=== PATIENT | male | born 1965 | race Caucasian/White ===

== ENCOUNTER 2016-10-29 06:43 | Emergency (ER) | payer MEDICARE, MEDICAID ==
[2016-10-29] MEDS ORDERED: SODIUM CHLORIDE 0.9% 1,000 ML IV ONE (07:29)
[2016-10-29] MEDS ORDERED: LORazepam 2 MG/ML SYRINGE IVP STA (07:29)
[2016-10-29] MEDS ORDERED: ONDANSETRON 4 MG/2 ML VIAL IVP STA (07:29)
[2016-10-29] MEDS ORDERED: FAMOTIDINE 20 MG/50 ML 50 ML IV ONE ×2 (07:29→07:41)
[2016-10-29] MEDS ORDERED: LORazepam 2 MG/ML SYRINGE ONE (07:41)
[2016-10-29] MEDS ORDERED: ONDANSETRON 4 MG/2 ML VIAL ONE (07:41)
== END 2016-10-29 10:02 | disposition home or self-care (01) ==
DX: K29.21 Alcoholic gastritis with bleeding (principal); Z79.82 Long term (current) use of aspirin; I10 Essential (primary) hypertension; E78.00 Pure hypercholesterolemia, unspecified; K21.9 Gastro-esophageal reflux disease without esophagitis; F17.200 Nicotine dependence, unspecified, uncomplicated
CPT/HCPCS: 36415; 80053; 83690; 85025; 85610; 86850; 86900; 86901; 96365; 96375; 99284; J2060

== ENCOUNTER 2017-01-21 00:52 | Inpatient (IN) | payer MEDICARE, MEDICAID ==
[2017-01-21] MEDS ORDERED: ONDANSETRON 4 MG/2 ML VIAL IVP STA (01:24)
[2017-01-21] MEDS ORDERED: SODIUM CHLORIDE 0.9% 1,000 ML IV STA (01:24)
[2017-01-21] MEDS ORDERED: HYDROmorphone 1 MG/ML SYRINGE IVP STA ×2 (01:24→02:48)
[2017-01-21] MEDS ORDERED: HYDROmorphone 1 MG/ML SYRINGE ONE ×2 (01:26→03:01)
[2017-01-21] MEDS ORDERED: ONDANSETRON 4 MG/2 ML VIAL ONE (01:27)
[2017-01-21] MEDS ORDERED: PROCHLORPERAZINE 10 MG/2 ML VIAL IVP PRN (03:30)
[2017-01-21] MEDS ORDERED: ONDANSETRON 4 MG/2 ML VIAL IVP PRN (03:30)
[2017-01-21] MEDS ORDERED: ZOLPIDEM 5 MG TABLET PO PRN (03:30)
[2017-01-21] MEDS ORDERED: ACETAMINOPHEN 325 MG TABLET PO PRN (03:30)
[2017-01-21] MEDS ORDERED: MAGNESIUM SULFATE 2 GRAM 50 ML IV ONE (03:35)
[2017-01-21] MEDS ORDERED: LORazepam 2 MG/ML SYRINGE IVP PRN (03:35)
[2017-01-21] MEDS: NS W/20 MEQ KCL 1,000 ML IV SCH ×2 (04:56→19:14)
[2017-01-21] MEDS: SODIUM CHLORIDE FLUSH 0.9% 10 ML SYRINGE IVP SCH ×3 (04:57→21:11)
[2017-01-21] MEDS: MORPHINE 2 MG/ML SYRINGE IVP PRN ×4 (05:11→16:01)
[2017-01-21] MEDS: oxyCODONE 5 MG TABLET PO PRN ×3 (06:40→19:12)
[2017-01-21] MEDS: PANTOPRAZOLE 40 MG VIAL IVP SCH ×2 (06:40→10:47)
[2017-01-21] MEDS: SODIUM CHLORIDE FLUSH 0.9% 10 ML SYRINGE IVP PRN ×2 (08:00→10:17)
[2017-01-21] MEDS: ASPIRIN EC 81 MG TABLET PO SCH (08:16)
[2017-01-21] MEDS: METOPROLOL SUCCINATE 50 MG TABLET PO SCH ×2 (08:16→21:10)
[2017-01-21] MEDS: ENOXAPARIN 40 MG/0.4 ML SYRINGE SUBQ SCH (08:16)
[2017-01-21] MEDS: POLYETHYLENE GLYCOL 3350 17 GM PACKET PO SCH (08:16)
[2017-01-21] MEDS: MULTIVITAMIN 10 ML, THIAMINE INJ 100 MG, FOLIC ACID INJ 1 MG in SODIUM CHLORIDE 0.9% 1,... IV SCH (08:44)
[2017-01-21] MEDS: GEMFIBROZIL 600 MG TABLET PO SCH ×2 (08:50→16:01)
[2017-01-22] MEDS: oxyCODONE 5 MG TABLET PO PRN ×6 (00:12→20:59)
[2017-01-22] MEDS: MORPHINE 2 MG/ML SYRINGE IVP PRN (02:24)
[2017-01-22] MEDS: SODIUM CHLORIDE FLUSH 0.9% 10 ML SYRINGE IVP PRN ×2 (02:24→09:35)
[2017-01-22] MEDS: SODIUM CHLORIDE FLUSH 0.9% 10 ML SYRINGE IVP SCH ×3 (06:01→20:54)
[2017-01-22] MEDS: GEMFIBROZIL 600 MG TABLET PO SCH ×2 (06:02→16:01)
[2017-01-22] MEDS ORDERED: IOPAMIDOL-300 100 ML VIAL IVP ONE (08:58)
[2017-01-22] MEDS: ASPIRIN EC 81 MG TABLET PO SCH (09:28)
[2017-01-22] MEDS: METOPROLOL SUCCINATE 50 MG TABLET PO SCH ×2 (09:28→20:54)
[2017-01-22] MEDS: ENOXAPARIN 40 MG/0.4 ML SYRINGE SUBQ SCH (09:29)
[2017-01-22] MEDS: POLYETHYLENE GLYCOL 3350 17 GM PACKET PO SCH (09:29)
[2017-01-22] MEDS: MULTIVITAMIN 10 ML, THIAMINE INJ 100 MG, FOLIC ACID INJ 1 MG in SODIUM CHLORIDE 0.9% 1,... IV SCH (09:29)
[2017-01-22] MEDS: SODIUM CHLORIDE 0.9% 1,000 ML IV SCH ×2 (16:50→20:54)
[2017-01-22] MEDS: SENNA 8.6 MG TABLET PO SCH (19:47)
[2017-01-22] MEDS: DOCUSATE SODIUM 250 MG CAPSULE PO SCH (19:48)
[2017-01-23] MEDS: oxyCODONE 5 MG TABLET PO PRN ×2 (00:09→06:08)
[2017-01-23] MEDS: SODIUM CHLORIDE 0.9% 1,000 ML IV SCH (04:18)
[2017-01-23] MEDS: SODIUM CHLORIDE FLUSH 0.9% 10 ML SYRINGE IVP SCH (06:01)
[2017-01-23] MEDS: GEMFIBROZIL 600 MG TABLET PO SCH (06:08)
[2017-01-23] MEDS: PANTOPRAZOLE 40 MG VIAL IVP SCH (06:08)
[2017-01-23] MEDS: ENOXAPARIN 40 MG/0.4 ML SYRINGE SUBQ SCH (06:48)
[2017-01-23] MEDS: MORPHINE 2 MG/ML SYRINGE IVP PRN (07:56)
[2017-01-23] MEDS ORDERED: PRENATAL VITAMIN TABLET PO SCH (08:00)
[2017-01-23] MEDS: SENNA 8.6 MG TABLET PO SCH (08:20)
[2017-01-23] MEDS: ASPIRIN EC 81 MG TABLET PO SCH (08:20)
[2017-01-23] MEDS: POLYETHYLENE GLYCOL 3350 17 GM PACKET PO SCH (08:21)
[2017-01-23] MEDS: METOPROLOL SUCCINATE 50 MG TABLET PO SCH (08:21)
[2017-01-23] MEDS: DOCUSATE SODIUM 250 MG CAPSULE PO SCH (08:21)
[2017-01-23] MEDS ORDERED: THIAMINE 100 MG TABLET PO SCH (09:00)
== END 2017-01-23 12:50 | disposition home or self-care (01) | DRG 439 ==
DX: K86.0 Alcohol-induced chronic pancreatitis (principal); E87.1 Hypo-osmolality and hyponatremia; F17.200 Nicotine dependence, unspecified, uncomplicated; E78.00 Pure hypercholesterolemia, unspecified; K21.9 Gastro-esophageal reflux disease without esophagitis; R33.9 Retention of urine, unspecified; H54.7 Unspecified visual loss; Z96.659 Presence of unspecified artificial knee joint; Z79.82 Long term (current) use of aspirin; R17 Unspecified jaundice; J90 Pleural effusion, not elsewhere classified; K85.90 Acute pancreatitis without necrosis or infection, unspecified; K70.10 Alcoholic hepatitis without ascites; R74.0 Nonspecific elevation of levels of transaminase and lactic acid dehydrogenase [LDH]; E78.1 Pure hyperglyceridemia; F10.20 Alcohol dependence, uncomplicated; T39.1X1A Poisoning by 4-Aminophenol derivatives, accidental (unintentional), initial encounter; E87.6 Hypokalemia; K76.0 Fatty (change of) liver, not elsewhere classified; I10 Essential (primary) hypertension; E78.5 Hyperlipidemia, unspecified; F17.210 Nicotine dependence, cigarettes, uncomplicated; G89.29 Other chronic pain; M25.511 Pain in right shoulder; M54.9 Dorsalgia, unspecified; Y92.9 Unspecified place or not applicable; R91.8 Other nonspecific abnormal finding of lung field; Z79.891 Long term (current) use of opiate analgesic; Z79.899 Other long term (current) drug therapy; Z86.79 Personal history of other diseases of the circulatory system; Z87.828 Personal history of other (healed) physical injury and trauma

== ENCOUNTER 2018-02-25 08:00 | Outpatient (CLI) | payer MEDICARE ==
[2018-02-25 13:35] LABS: ALT ALANINE AMINOTRANSFERASE 26 IU/L (10-60); AST ASPARTATE AMINOTRANSFERASE 54 IU/L (10-42); BUN - BLOOD UREA NITROGEN 10 mg/dL (6-20); CARBON DIOXIDE - CO2 20 mmol/L (21-32); CHLORIDE 107 mmol/L (101-111); CHOL/HDL RATIO 3.2 (<5.0); CHOLESTEROL 142 mg/dL; CREATININE 0.7 mg/dL (0.6-1.2); GFR - MDRD 118 (>89); GLUCOSE 113 mg/dL (70-100); HDL CHOLESTEROL 45 mg/dL; LDL CHOLESTEROL,CALCULATED 78 mg/dL; LDL/HDL RATIO 1.7 (<3.6); SODIUM 136 mmol/L (135-145); VLDL CHOLESTEROL 19 mg/dL
== END 2018-02-25 08:01 | disposition home or self-care (01) ==
LOC: LAB.N 08:00
PROVIDERS: ATTEND Internal Medicine
DX: I10 Essential (primary) hypertension (principal); E78.5 Hyperlipidemia, unspecified
CPT/HCPCS: 36415; 80051; 80061; 82565; 82947; 83721; 84450; 84460; 84520

== ENCOUNTER 2019-06-12 19:29 | Inpatient (IN) | payer MEDICARE, OTHER ==
[~2019-06-12 19:29] MED LIST: DEXAMETHASONE 4 MG/ML VIAL IVP ONE; LABETALOL 5 MG/1 ML 20 ML MDV IV ONE; MIDAZOLAM 2 MG/2 ML VIAL IVP ONE; PROPOFOL 200 MG/20 ML VIAL IVP ONE; ROCURONIUM 50 MG/5 ML VIAL IVP ONE; SUCCINYLCHOLINE 200 MG/10 ML VIAL IVP ONE
[2019-06-12] MEDS ORDERED: FOLIC ACID INJ 1 MG, THIAMINE INJ 100 MG, MAGNESIUM SULFATE 2 GM, MULTIVITAMIN 10 ML in... IV STA ×5 (20:24)
[2019-06-12 20:34] LABS: BASOPHILS # (AUTO) 0.1 10^3/uL (0.0-0.1); BASOPHILS % (AUTO) 1.1 %; EOSINOPHILS % (AUTO) 0.2 %; HGB - HEMOGLOBIN 11.2 g/dL (14.0-18.0); LYMPHOCYTES # (AUTO) 1.3 10^3/uL (1.5-3.5); LYMPHOCYTES % (AUTO) 23.4 %; MEAN CORPUSCULAR HEMOGLOBIN 30.7 pg (27.0-31.0); MEAN CORPUSCULAR HGB CONC 32.4 g/dL (32.0-36.0); MEAN CORPUSCULAR VOLUME 94.8 fL (80.0-94.0); MEAN PLATELET VOLUME 8.5 fL (7.4-11.4); MONOCYTES # (AUTO) 0.5 10^3/uL (0.0-1.0); MONOCYTES % (AUTO) 8.6 %; NEUTROPHILS # (AUTO) 3.7 10^3/uL (1.5-6.6); NEUTROPHILS % (AUTO) 66.2 %; PLT - PLATELET COUNT 158 10^3/uL (130-450); RED BLOOD COUNT 3.65 10^6/uL (4.70-6.10); WHITE BLOOD COUNT 5.6 x10^3/uL (4.8-10.8)
--- NOTE | 2019-06-12 20:35 | ED Physician Documentation ---
History of Present Illness - Stated complaint Stated Complaint: WEAKNESS/ ETOH Intoxication - Chief complaint Chief Complaint: General - History obtained from History obtained from: Patient, Family - History of Present Illness Timing: Today Pain level max: 0 Pain level now: 0 - Additonal information Additional information: Patient states he has been drinking alcohol for the past week or so. States feels weak today. No bleeding. No blood in the stool. No chest pain. No dyspnea. Nothing makes it better or worse. Denies any medications at home. States he drinks a sixpack of beer per day. He states that he did fall and strike his head. He is not sure when this occurred. No neck or back pain. No focal neurological deficits. Ambulated into the emergency department. Review of Systems Unable to obtain: Intoxicated Ten Systems: 10 systems reviewed and negative Constitutional: denies: Fever, Chills Ears: denies: Ear pain Nose: denies: Rhinorrhea / runny nose, Congestion Throat: denies: Sore throat Cardiac: denies: Chest pain / pressure Respiratory: denies: Cough GI: denies: Abdominal Pain, Abdominal Swelling, Nausea, Vomiting, Diarrhea, Hematemesis, Bloody / black stool : denies: Dysuria Skin: denies: Rash Musculoskeletal: denies: Neck pain, Back pain Neurologic: denies: Headache PD PAST MEDICAL HISTORY - Past Medical History Past Medical History: Yes Cardiovascular: Hypertension, High cholesterol Respiratory: None Endocrine/Autoimmune: None GI: GERD : Retention HEENT: Chronic vision loss Psych: Other Musculoskeletal: None Derm: None Other Past Medical History: Alcoholism - Past Surgical History Past Surgical History: Yes Ortho: Knee replacement, Shoulder arthroplasty - Present Medications Home Medications: Ambulatory Orders Medication Instructions Recorded Confirmed Amitriptyline [Elavil] 50 mg PO QPM 01/21/17 06/12/19 Lisinopril [Zestril] 20 mg PO DAILY 01/21/17 06/12/19 Simvastatin [Zocor] 20 mg PO DAILY 01/21/17 06/12/19 Aspirin Chewable [[place] 1 tab PO DAILY 06/12/19 06/12/19 Aspirin] - Allergies Allergies/Adverse Reactions: Allergies Allergy/AdvReac Type Severity Reaction Status Date / Time No Known Drug Allergies Allergy Verified 06/12/19 19:35 - Social History Does the pt smoke?: Yes Smoking Status: Current every day smoker Does the pt drink ETOH?: Yes ETOH Use: Beer Does the pt have substance abuse?: No - Immunizations Immunizations are current?: Yes - POLST Patient has POLST: No PD ED PE NORMAL - Vitals Vital signs reviewed: Yes - General General: Alert and oriented X 3, No acute distress, Other (Intoxicated) - HEENT HEENT: PERRL, EOMI, Ears normal, Moist mucous membranes, Pharynx benign - Neck Neck: Supple, no meningeal sign, No bony TTP - Cardiac Cardiac: RRR, Strong equal pulses, Other (Bruising to the left side of the chest. No crepitus.) - Respiratory Respiratory: No respiratory distress, Clear bilaterally - Abdomen Abdomen: Soft, Non tender, Non distended - Back Back: No spinal TTP - Derm Derm: Warm and dry, No rash - Extremities Extremities: No deformity, No tenderness to palpate, Normal ROM s pain - Neuro Neuro: Alert and oriented X 3, vehicle cost engineer 2-12 intact, No motor deficit, No sensory deficit, Other (Slurred speech) Eye Opening: Spontaneous Motor: Obeys Commands Verbal: Oriented GCS Score: 15 - Psych Psych: Normal mood, Normal affect Results - Vitals Vitals: Vital Signs - 24 hr 06/12/19 06/12/19 06/12/19 19:35 21:12 21:35 Temperature 36.5 C Heart Rate 89 81 80 Respiratory 16 16 16 Rate Blood Pressure 139/89 H 108/59 L 112/68 O2 Saturation 96 95 95 06/12/19 22:32 Temperature Heart Rate 84 Respiratory 16 Rate Blood Pressure 129/74 O2 Saturation 95 Oxygen O2 Source Room air - Labs Labs: Laboratory Tests 06/12/19 06/12/19 06/12/19 20:21 20:21 20:47 WBC 5.6 RBC 3.65 L Hgb 11.2 L Hct 34.6 L MCV 94.8 H MCH 30.7 MCHC 32.4 RDW 21.0 H Plt Count 158 MPV 8.5 Neut # (Auto) 3.7 Lymph # (Auto) 1.3 L Gray # (Auto) 0.5 Eos # (Auto) 0.0 Baso # (Auto) 0.1 Absolute Nucleated RBC 0.00 Nucleated RBC % 0.0 Manual Slide Review Indicated Platelet Estimate NORMAL (130-450,000) Platelet Morphology NORMAL APPEARANCE RBC Morph Micro Appear 1+ HYPOCHROMASIA PT INR Sodium 139 Potassium 4.0 Chloride 101 Carbon Dioxide 25 Anion Gap 13.0 BUN 13 Creatinine 0.5 L Estimated GFR (MDRD) 173 Glucose 115 H Calcium 9.1 Phosphorus 4.9 H Magnesium 2.0 Total Bilirubin 0.4 AST 71 H ALT 35 Alkaline Phosphatase 92 Total Protein 7.5 Albumin 3.7 Globulin 3.8 Albumin/Globulin Ratio 1.0 Lipase 336 H Urine Color YELLOW Urine Clarity CLEAR Urine pH 6.5 Ur Specific [place] <=1.005 Urine Protein NEGATIVE Urine Glucose (UA) NEGATIVE Urine Ketones NEGATIVE Urine Occult Blood NEGATIVE Urine Nitrite NEGATIVE Urine Bilirubin NEGATIVE Urine Urobilinogen 0.2 (NORMAL) Ur Leukocyte Esterase NEGATIVE Ur Microscopic Review NOT INDICATED Urine Culture Comments NOT INDICATED Ethyl Alcohol 382.8 06/12/19 22:00 WBC RBC Hgb Hct MCV MCH MCHC RDW Plt Count MPV Neut # (Auto) Lymph # (Auto) Gray # (Auto) Eos # (Auto) Baso # (Auto) Absolute Nucleated RBC Nucleated RBC % Manual Slide Review Platelet Estimate Platelet Morphology RBC Morph Micro Appear PT 11.3 INR 1.0 Sodium Potassium Chloride Carbon Dioxide Anion Gap BUN Creatinine Estimated GFR (MDRD) Glucose Calcium Phosphorus Magnesium Total Bilirubin AST ALT Alkaline Phosphatase Total Protein Albumin Globulin Albumin/Globulin Ratio Lipase Urine Color Urine Clarity Urine pH Ur Specific Novinger Urine Protein Urine Glucose (UA) Urine Ketones Urine Occult Blood Urine Nitrite Urine Bilirubin Urine Urobilinogen Ur Leukocyte Esterase Ur Microscopic Review Urine Culture Comments Ethyl Alcohol - Rads (name of study) Head CT Radiology: Prelim report reviewed, EMP read contemporaneously, See rad report (1. New, 9 x 7 mm hyperdense focus in the insula region medial to the left temporal lobe. In setting of trauma, this may represent a hemorrhagic focus. Consider further characterization with MRI. 2. Known left deep white matter cavernoma. ) Cervical spine CT Radiology: Prelim report reviewed, EMP read contemporaneously, See rad report (No acute abnormality) Left-sided rib with chest x-ray Radiology: Prelim report reviewed, EMP read contemporaneously, See rad report (Negative chest and rib radiography. ) PD MEDICAL DECISION MAKING - ED course Complexity details: reviewed old records, reviewed results, re-evaluated patient, considered differential, d/w patient, d/w family, d/w retirement sales consultant ED course: Dr. Kostas Toussaint (Neurosurgery at 2300) concurrs with MRI in AM. 53-year-old male presents to the emergency department several medical problems. The first is multiple falls secondary to alcoholism and alcohol intoxication. He was given a banana bag. Cervical spine CT and rib x-ray did not show any acute abnormalities. Head CT is a questionable contusion versus cavernoma. Radiology recommends an MRI. I discussed the case with neurosurgery who concurs with an MRI in the morning to further characterize the temporal lobe abnormality. The second is GI bleed, likely upper from alcoholic gastritis. Given a PPI. Hemoglobin appears stable from prior. Will likely need monitoring overnight. Also has pancreatitis, has been vomiting consistently for several days and unable to tolerate p.o. He refuses a rectal exam in the emergency department. Discussed the case with Dr. Fernandes, hospitalist who accepts This document was made in part using voice recognition software. While efforts are made to proofread this document, sound alike and grammatical errors may occur. Departure - Departure Disposition: [facility] DC/Xfer Clinical Impression: Abnormal head CT, Alcoholism /alcohol abuse Pancreatitis Qualifiers: Chronicity: acute Pancreatitis type: alcohol induced Acute pancreatitis complication: unspecified Qualified Code(s): K85.20 - Alcohol induced acute pancreatitis without necrosis or infection GI bleed Qualifiers: GI bleed type/associated pathology: unspecified gastrointestinal hemorrhage type Qualified Code(s): K92.2 - Gastrointestinal hemorrhage, unspecified Condition: Stable Discharge Date/Time: 06/12/19 23:36
[2019-06-12] MEDS ORDERED: THIAMINE 100 MG/1 ML 2 ML MDV ONE (20:38)
[2019-06-12 20:46] LABS: ALBUMIN 3.7 g/dL (3.2-5.5); BILIRUBIN,TOTAL 0.4 mg/dL (0.2-1.0); CALCIUM 9.1 mg/dL (8.5-10.3); CREATININE 0.5 mg/dL (0.6-1.2); PHOSPHORUS 4.9 mg/dL (2.5-4.6); TOTAL PROTEIN 7.5 g/dL (6.7-8.2)
[2019-06-12 20:58] LABS: BILIRUBIN,URINE NEGATIVE (NEGATIVE); GLUCOSE, URINE (UA) NEGATIVE (NEGATIVE); KETONES,URINE (UA) NEGATIVE (NEGATIVE); LEUKOCYTE ESTERASE, URINE NEGATIVE (NEGATIVE); NITRITE,URINE NEGATIVE (NEGATIVE); OCCULT BLOOD,URINE NEGATIVE (NEGATIVE); PH,URINE 6.5 PH (5.0-7.5); PROTEIN,URINE NEGATIVE (NEGATIVE); UROBILINOGEN,URINE 0.2 (NORMAL) E.U./dL (NORMAL)
[2019-06-12 21:03] LABS: CLARITY,URINE CLEAR (CLEAR)
[2019-06-12 21:18] LABS: PLATELET ESTIMATE, MANUAL NORMAL (130-450,000) (NORMAL); PLATELET MORPHOLOGY NORMAL APPEARANCE (NORMAL)
--- NOTE | 2019-06-12 21:24 | XRAY Report ---
Reason: fall, rib pain Procedure Date: 06/12/2019 Accession Number: [id number] / [id number] Procedure: XR - Ribs w/PA Chest LT CPT Code: FULL RESULT: EXAM: LEFT RIB RADIOGRAPHY EXAM DATE: 06/12/2019 09:07 PM. CLINICAL HISTORY: Fall, rib pain. COMPARISON: CHEST 2 VIEW PA/LAT 01/21/2017 1:29 AM. TECHNIQUE: 1 view of the chest and 2 views of the ribs. FINDINGS: Bones: Normal. No fracture or bone lesion. Lungs: No focal opacities. No pneumothorax. No pleural effusions. Mediastinum: Heart and mediastinal contours are unremarkable. Other: None. IMPRESSION: Negative chest and rib radiography. RADIA
--- NOTE | 2019-06-12 21:33 | CT Report ---
Reason: fall, head injury, aloc Procedure Date: 06/12/2019 Accession Number: [id number] / [id number] Procedure: CT - HEAD WO CPT Code: FULL RESULT: EXAM: CT HEAD EXAM DATE: 06/12/2019 08:47 PM. CLINICAL HISTORY: Fall, head injury, altered level of consciousness. COMPARISON: 11/24/2012 brain MRI, 03/15/[address] TECHNIQUE: Multiaxial CT images were obtained from the foramen magnum to the vertex. Reformats: Sagittal and coronal. IV contrast: None. In accordance with CT protocol optimization, one or more of the following dose reduction techniques were utilized for this exam: automated exposure control, adjustment of mA and/or KV based on patient size, or use of iterative reconstructive technique. FINDINGS: Parenchyma: There is a subtle, hyperdense 10 mm focus in the region of the posterior limb of the left internal capsule consistent with a known cavernoma. There is however a new, 9 x 7 mm hyperdense focus medial to the left temporal lobe and the insular region. No associated mass effect. Extraaxial Spaces: Normal for age. No subdural or epidural collections identified. Ventricles: Normal in size and position. Sinuses and Orbits: Imaged paranasal sinuses, orbits, and mastoids show no significant abnormality. Bones: No evidence of fracture or calvarial defect. Other: None. IMPRESSION: 1. New, 9 x 7 mm hyperdense focus in the insula region medial to the left temporal lobe. In setting of trauma, this may represent a hemorrhagic focus. Consider further characterization with MRI. 2. Known left deep white matter cavernoma. RADIA The above call report findings were discussed with Sanju Funes by Dr. Michael De La Rosa at 09:44 PM on 06/12/2019.
[2019-06-12] MEDS ORDERED: SODIUM CHLORIDE 0.9% 1,000 ML IV ONE (21:50)
[2019-06-12] MEDS ORDERED: PANTOPRAZOLE 40 MG VIAL IVP STA (21:50)
--- NOTE | 2019-06-12 22:58 | CT Report ---
Reason: fall, head injury, intoxicated Procedure Date: 06/12/2019 Accession Number: [id number] / [id number] Procedure: CT - CERVICAL SPINE WO CPT Code: FULL RESULT: EXAM: CT CERVICAL SPINE WITHOUT CONTRAST DATE: 06/12/2019 10:15 PM. HISTORY: Fall, head injury, intoxicated. COMPARISONS: XR CERVICAL SPINE 2 OR 3 VIEWS 06/18/2008 11:48 AM. TECHNIQUE: Thin-section axial images were acquired of the cervical spine without contrast. Post-processing: Coronal and sagittal reformats. Other: None. In accordance with CT protocol optimization, one or more of the following dose reduction techniques were utilized for this exam: automated exposure control, adjustment of mA and/or KV based on patient size, or use of iterative reconstructive technique. FINDINGS: Alignment: No scoliosis or spondylolisthesis. Bones: No fracture or bone lesion. Interspace Levels/Facets: C1-C2: Unremarkable. C2-C3: Unremarkable. C3-C4: Unremarkable. C4-C5: Mild right foraminal narrowing due to uncinate hypertrophy. C5-C6: Anterior spurring and mild disk narrowing. Posterior spurring and disk bulging mildly narrows the central canal. Uncovertebral and facet hypertrophy results in mild bilateral foraminal narrowing. C6-C7: Anterior spurring and [id number] disk narrowing. Posterior endplate spurring and disk bulging causes [id number] canal stenosis. Uncinate hypertrophy results in moderate to severe right and moderate left foraminal stenosis. C7-T1: There is mild disk narrowing and anterior endplate spurring. Posterior spurring and disk bulging mildly narrows the central canal. Neural foramen on the right is moderately narrowed. There is mild left foraminal stenosis. Musculature: Normal. No fatty atrophy. Other: The paravertebral and prevertebral soft tissues are unremarkable. The lung apices are clear. IMPRESSION: 1. No acute osseous abnormality. No cervical spine fracture or subluxation. 2. Mild to moderate multilevel cervical spondylosis in the lower cervical spine as detailed above most severe at C6-C7. At C6-C7, there is mild to moderate central canal stenosis, moderate to severe right and moderate left foraminal stenosis. RADIA
[2019-06-12] MEDS ORDERED: LACTATED RINGERS 1,000 ML IV ONE ×2 (23:00→23:12)
[2019-06-12] MEDS ORDERED: SODIUM CHLORIDE FLUSH 0.9% 10 ML SYRINGE IVP PRN (23:08)
[2019-06-12] MEDS ORDERED: ONDANSETRON 4 MG/2 ML VIAL IVP PRN ×2 (23:08→23:42)
[2019-06-12] MEDS ORDERED: LORazepam 2 MG/ML VIAL IVP PRN (23:10)
[2019-06-12 23:30] LABS: PT - PROTHROMBIN TIME 11.3 secs (9.9-12.6)
--- NOTE | 2019-06-12 23:41 | HISTORY & PHYSICAL EXAMINATION ---
Chief Complaint - Chief Complaint Chief Complaint: Weakness History of Present Illness - Admitted From Admitted From:: Home - History Obtained From Records Reviewed: Yes History obtained from: Patient, EMR, ER Physician - History of Present Illness HPI Comment/Other: This is a 53 year old male with a past medical history significant for alcohol abuse, hypertension, and hyperlipidemia who presents from home complaining of weakness. He states that he has been weak for a few days now so his made come to the emergency department. He reports he has felt weak when he is drinking alcohol which has been on a daily basis for the past month. He drinks a 6 pack of beer a day and his last drink is reportedly around noon. He reports never drinking daily prior to this month and that he has never gone through withdrawal in the past. Review prior records shows that he was admitted back in 2017 for pancreatitis and that he was drinking alcohol on a daily basis then. He states that he has also been falling recently with his last fall being one week ago. He reports hitting his head and his right chest. He admits to bruising but denies headache, pain, blurry vision, weakness, and numbness. He reports no abdominal pain at this time and denies nausea and vomiting. He did tell the ER Physician that he has been vomiting at home these past few days and unable to tolerate PO intake. He does admit to bloody stools at time. He cannot characterize whether it is dark or bright red blood. In the ER, he was found to be afebrile and normotensive with heart rate in the 80's. Labs revealed a hemoglobin of 11.2 and lipase of 336. Alcohol level was elevated at 382.2. He underwent a CT of the head which showed an old cavernoma but was concerning for a new 9x7mm focus in the left temporal lobe that may be hemorrhagic. The ER Physician spoke with Neurosurgery at [facility] who recommended obtaining an MRI in the morning. The CT of the neck showed dege nerative disease with multilevel cervical spondylosis and mild central canal stenosis at C6. He will be admitted for further management of his pancreatitis and this new brain lesion. History - Past Medical History Cardiovascular: reports: Hypertension, High cholesterol Respiratory: reports: None Endocrine/Autoimmune: reports: None GI: reports: GERD : reports: Retention HEENT: reports: Chronic vision loss Musculoskeletal: reports: None Derm: reports: None MRSA Hx?: No Other Past Medical History: Alcoholism - Past Surgical History Ortho: reports: Knee replacement, Shoulder arthroplasty - Family & Social History Family History Comment/Other: He reports no known family history. Living arrangement: At home Living Situation: With spouse/s.o. Social History Notes: He lives with his in [place]. 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 He drinks alcohol on a daily basis but only for the past month. States he has been drinking since the age of 16. He does smoke a few cigarettes day. Denies illicit drug use. - Substance History Use: Uses substance without health or social issues: Tobacco Abuse: Recurrent use of substance despite neg consequences: Alcohol - POLST Patient has POLST: No Meds/Allgy - Home Medications Home Medications: Ambulatory Orders Medication Instructions Recorded Confirmed Amitriptyline [Elavil] 50 mg PO QPM 01/21/17 06/12/19 Lisinopril [Zestril] 20 mg PO DAILY 01/21/17 06/12/19 Simvastatin [Zocor] 20 mg PO DAILY 01/21/17 06/12/19 Aspirin Chewable [[place] 1 tab PO DAILY 06/12/19 06/12/19 Aspirin] - Allergies Allergies/Adverse Reactions: Allergies Allergy/AdvReac Type Severity Reaction Status Date / Time No Known Drug Allergies Allergy Verified 06/12/19 19:35 Review of Systems - Constitutional Constitutional: reports: Weakness. denies: Fatigue, Fever, Chills, Poor appetite - Eyes Eyes: denies: Blurred vision - Cardiovascular Cariovascular: denies: Chest pain, Exertional dyspnea, Decr. exercise tolerance - Respiratory Respiratory: denies: Cough, SOB at rest, SOB with exertion - Gastrointestinal Gastrointestinal: reports: Rectal bleeding, Bloody stools. denies: Abdominal pain, Constipation, Diarrhea, Nausea, Vomiting - Genitourinary Genitourinary: denies: Dysuria, Frequency, Urgency - Musculoskeletal Musculoskeletal: denies: Muscle pain, Limited range of motion, Muscle weakness - Integumentary Integumentary: denies: Rash - Neurological Neurological: reports: General weakness. denies: Focal weakness, Headache, Dizziness - Hematologic/Lymphatic Hematologic/Lymphatic: reports: Bruising - All Other Systems All Other Systems: reports: Reviewed and negative Prior Level of Functionality: Independent with ADL's. Exam - Vital Signs Reviewed Vital Signs: Yes Vital Signs: Vital Signs x48h Temp Pulse Resp BP Pulse Ox 06/12/19 23:17 37.0 C 96 18 114/59 L 96 06/12/19 22:32 84 16 129/74 95 06/12/19 21:35 80 16 112/68 95 06/12/19 21:12 81 16 108/59 L 95 06/12/19 19:35 36.5 C 89 16 139/89 H 96 - Physical Exam General Appearance: positive: No acute distress, Alert Eyes Bilateral: positive: Normal inspection, PERRL, Conjunctivae nml ENT: positive: ENT inspection nml Neck: positive: Nml inspection Respiratory: positive: Chest non-tender, No respiratory distress, Breath sounds nml, Other (Area of ecchymoses over the right chest wall.). negative: Wheezes, Rales, Rhonchi Cardiovascular: positive: Regular rate & rhythm, No murmur. negative: Tac hycardia, Bradycardia, Systolic murmur, Diastolic murmur Abdomen: positive: Non-tender, Nml bowel sounds, No distention. negative: Tenderness, Guarding, Rebound Skin: positive: Color nml, No rash, Warm, Dry, Other (Multiple tattoos) Extremities: positive: Full ROM, No pedal edema Neurologic/Psychiatric: positive: Oriented x3, CN's nml (2-12), Motor nml, Sensation nml. negative: Disoriented to person, Disoriented to place, Disoriented to time, Facial droop, Slurred/abnml speech Conclusion/Plan - Problem List (1) Pancreatitis Conclusion/Plan: Asymptomatic at this time but reported nausea/vomiting to the ER physician these past few days. Lipases is elevated >300 and he has been drinking alcohol on a daily basis. He does have a history of hypertriglyceridemia which may also be contributing to the pancreatitis. - IV hydration - Clear liquid diet as he is requesting a diet - Check Lipase in AM - Check Lipid panel to rule out triglycerides as an etiology Qualifiers: Chronicity: acute Pancreatitis type: alcohol induced Acute pancreatitis c omplication: unspecified Qualified Code(s): K85.20 - Alcohol induced acute pancreatitis without necrosis or infection (2) Abnormal head CT Conclusion/Plan: He has prior history of a cavernoma but there is a new lesion concerning for possible hemorrhage. The CT results were discussed by the ER Physician with Neurosurgery at [facility] and a MRI was recommended. No neurologic deficits on exam. Blood pressure is stable. - Neurochecks - MRI brain in AM - Monitor blood pressure, will aim for goal of SBP <140 given this may be a small hemorrhage - Hold chemical DVT prophylaxis (3) Alcohol abuse Conclusion/Plan: He reports daily alcohol consumption for the past month although review of prior records suggest he has been drinking alcohol for a longer period of time. Alcohol level is >300 on admission. Reports no history of alcohol withdrawal. - Banana bag - CIWA protocol - Ativan PRN - Social work consult (4) Alcoholic gastritis Conclusion/Plan: He denies nausea/vomiting to me but told the ER physician that he has been unable to tolerate oral intake these past few days due to nausea and vomiting. Also reports bloody stool which may be related to gastritis. - Will continue IV Protonix - Zofran PRN - Clear liquid diet as tolerated - Check stool for occult blood (5) Falls Conclusion/Plan: This may be secondary to his alcohol abuse as he stated that the falls and weakness occurred after he started drinking alcohol and that he feels fine when he is not intoxicated. Will need to rule out a neurologic cause given the findings of his CT head. No neurologic deficits on exam. - Check MRI in the AM - PT evaluation - Alcohol cessation (6) Transaminitis Conclusion/Plan: Secondary to alcohol abuse. AST > ALT. Will need to refrain alcohol use. (7) HTN (hypertension) Conclusion/Plan: He is currently normotensive. Will continue home Lisinopril. (8) Hyperlipemia Conclusion/Plan: He has history of hypertriglyceridemia which may be playing a role in his pancreatitis. He is on a statin. - Continue statin - Check lipid panel - Lab Results Lab results reviewed: Yes Fish Bones: 06/12/19 20:21 06/12/19 20:21 - Diagnostic Imaging Results Diagnostic Imaging Results: positive: Final report reviewed Core Measures - Anticipated LOS I expect patient to be DC'd or transferred within 96 hours.: Yes - Issues Hospital Issues and Management Plan: Alcoholic pancreatitis requiring IV hydration. Brain lesion requiring MRI. - DVT/VTE - Prophylaxis VTE/DVT Device ordered at admit?: Yes VTE/DVT Prophylaxis med ordered at admit?: No Not Ordered - Medical Reason: Contraindicated
[2019-06-12] MEDS ORDERED: LACTATED RINGERS 1,000 ML IV SCH (23:45)
[2019-06-13] MEDS: SODIUM CHLORIDE FLUSH 0.9% 10 ML SYRINGE IVP SCH ×3 (00:19→17:05)
[2019-06-13 00:39] LABS: CHOL/HDL RATIO 2.6 (<5.0); CHOLESTEROL 240 mg/dL; HDL CHOLESTEROL 92 mg/dL; LDL CHOLESTEROL,CALCULATED 129 mg/dL; LDL/HDL RATIO 1.4 (<3.6); VLDL CHOLESTEROL 19 mg/dL
[2019-06-13] MEDS ORDERED: SODIUM CHLORIDE FLUSH 0.9% 10 ML SYRINGE IVP SCH (01:00)
[2019-06-13] MEDS: LACTATED RINGERS 1,000 ML IV SCH ×2 (01:22→17:48)
[2019-06-13 05:37] LABS: BASOPHILS # (AUTO) 0.1 10^3/uL (0.0-0.1); EOSINOPHILS % (AUTO) 0.8 %; HGB - HEMOGLOBIN 10.1 g/dL (14.0-18.0); LYMPHOCYTES # (AUTO) 1.2 10^3/uL (1.5-3.5); LYMPHOCYTES % (AUTO) 24.7 %; MEAN CORPUSCULAR HEMOGLOBIN 31.2 pg (27.0-31.0); MEAN CORPUSCULAR VOLUME 94.4 fL (80.0-94.0); MEAN PLATELET VOLUME 9.5 fL (7.4-11.4); MONOCYTES # (AUTO) 0.5 10^3/uL (0.0-1.0); MONOCYTES % (AUTO) 9.6 %; NEUTROPHILS # (AUTO) 3.2 10^3/uL (1.5-6.6); NEUTROPHILS % (AUTO) 63.3 %; PLT - PLATELET COUNT 110 10^3/uL (130-450); RED BLOOD COUNT 3.24 10^6/uL (4.70-6.10); RED CELL DISTRIBUTION WIDTH 20.7 % (12.0-15.0)
[2019-06-13 05:52] LABS: CALCIUM 8.1 mg/dL (8.5-10.3); CREATININE 0.5 mg/dL (0.6-1.2); MAGNESIUM 1.8 mg/dL (1.7-2.8); PHOSPHORUS 3.6 mg/dL (2.5-4.6)
[2019-06-13] MEDS: SODIUM CHLORIDE FLUSH 0.9% 10 ML SYRINGE IVP PRN ×6 (06:17→15:42)
[2019-06-13] MEDS ORDERED: PANTOPRAZOLE 40 MG VIAL IVP SCH ×2 (07:00)
[2019-06-13] MEDS ORDERED: PROCAINAMIDE 100 MG/1 ML 10 ML MDV IV ONE (07:16)
[2019-06-13] MEDS ORDERED: diltiaZEM INJ 5 MG/ML VIAL IVP ONE (07:47)
[2019-06-13] MEDS ORDERED: diltiaZEM INJ 5 MG/ML VIAL ONE ×2 (07:51→07:52)
[2019-06-13 07:56] LABS: BASOPHILS # (AUTO) 0.1 10^3/uL (0.0-0.1); BASOPHILS % (AUTO) 0.8 %; EOSINOPHILS % (AUTO) 0.5 %; HGB - HEMOGLOBIN 11.1 g/dL (14.0-18.0); LYMPHOCYTES # (AUTO) 2.2 10^3/uL (1.5-3.5); LYMPHOCYTES % (AUTO) 29.5 %; MEAN CORPUSCULAR HEMOGLOBIN 31.9 pg (27.0-31.0); MEAN CORPUSCULAR HGB CONC 33.3 g/dL (32.0-36.0); MEAN CORPUSCULAR VOLUME 95.7 fL (80.0-94.0); MONOCYTES # (AUTO) 0.7 10^3/uL (0.0-1.0); NEUTROPHILS # (AUTO) 4.4 10^3/uL (1.5-6.6); NEUTROPHILS % (AUTO) 59.7 %; PLT - PLATELET COUNT 121 10^3/uL (130-450); RED BLOOD COUNT 3.48 10^6/uL (4.70-6.10); RED CELL DISTRIBUTION WIDTH 20.8 % (12.0-15.0); WHITE BLOOD COUNT 7.4 x10^3/uL (4.8-10.8)
[2019-06-13] MEDS: PROCAINAMIDE 1,000 MG in SODIUM CHLORIDE 0.9% 240 ML IV SCH ×2 (08:00→13:12)
[2019-06-13 08:20] LABS: RBC MORPHOLOGY (MULTIPLE) 1+ ANISOCYTOSIS (NORMAL)
--- NOTE | 2019-06-13 08:26 | PROVIDER PROGRESS NOTE ---
Subjective - Prog Note Date Prog Note Date: 06/13/19 Prog Note Time: 08:44 - Subjective Subjective: he was asking for food, no abd pain. Noted the hx of dark stool and he was FOBT (+) Aid and RN hear him retching and found him to have unconsciousness with a pressure 160 systolic, breathing, but blood around his mouth. Tele showed new afib to 280 rate. next 30 minutes was spent transferring to ICU and stabilizing with work up and speaking to Gen Surgery Current Medications - Current Medications Current Medications: Active Medications Amitriptyline HCl (Elavil) 50 mg PO QPM ALBINO Atorvastatin Calcium (Lipitor) 10 mg PO QPM ALBINO Lactated Ringer's (Lr) 1,000 mls @ 100 mls/hr IV .Q10H ALBINO Last Admin: 06/13/19 01:22 Dose: 100 mls/hr Multivitamins 10 ml/ Thiamine HCl 100 mg/ Folic Acid 1 mg/Sodium Chloride 1,011.2 mls @ 100 mls/hr IV DAILY ALBINO Procainamide HCl 1,000 mg/ (Sodium Chloride) 250 mls @ 250 mls/hr IV .Q1H ALBINO; Protocol Last Admin: 06/13/19 08:00 Dose: 250 mls/hr Lorazepam (Ativan Inj (Vial)) 1 mg IVP Q30M PRN; Protocol PRN Reason: CIWA >8 Ondansetron HCl (Zofran Inj) 4 mg IVP Q6HR PRN PRN Reason: Nausea / Vomiting Pantoprazole Sodium (Protonix) 40 mg IVP BID [facility] Sodium Chloride (Normal Saline Flush 0.9%) 10 ml IVP PRN PRN PRN Reason: NEEDED PER PROVIDER ORDERS Last Admin: 06/13/19 06:17 Dose: 10 ml Sodium Chloride (Normal Saline Flush 0.9%) 10 ml IVP 0100,0900,1700 [facility] Last Admin: 06/13/19 00:19 Dose: Not Given Amitriptyline [Elavil] 50 mg PO QPM 01/21/17 Lisinopril [Zestril] 20 mg PO DAILY 01/21/17 Simvastatin [Zocor] 20 mg PO DAILY 01/21/17 Aspirin Chewable [[place] Aspirin] 1 tab PO DAILY 06/12/19 Objective - Vital Signs/Intake & Output Reviewed Vital Signs: Yes Vital Signs: Vital Signs Temp Pulse Pulse Resp BP Pulse Ox 06/13/19 06:13 37.2 C 65 16 94 06/13/19 04:48 37.2 C 65 16 126/63 94 Intake & Output: Intake & Output 06/10/19 06/11/19 06/12/19 06/13/19 23:59 23:59 23:59 23:59 Intake Total 1035.2 2345 Output Total 1200 1350 Balance -164.8 995 - Objective General Appearance: positive: Lethargic (but awake. Was unconscious on med surg and woke up in ICU. hates the gardner.) Eyes Bilateral: positive: PERRL, EOMI ENT: positive: Other (blood around mouth) Neck: positive: No JVD, Lymphadenopathy (R) (shotty), Lymphadenopathy (L) (shotty). negative: Stiff neck, Carotid bruit Respiratory: positive: Chest non-tender, Rhonchi. negative: Wheezes, Rales Cardiovascular: positive: Regular rate & rhythm, Tachycardia (severe). negative: Systolic murmur, Gallop/S4 Abdomen: positive: Nml bowel sounds, No distention, Tenderness (mild and diffuse). negative: Guarding, Rebound Skin: positive: Warm, Dry Extremities: positive: Full ROM, No pedal edema Neurologic/Psychiatric: positive: Oriented x3, CN's nml (2-12), Motor nml - Lab Results Fish Bones: 06/13/19 07:45 06/13/19 05:20 Other Labs: Lab Results x24hrs 06/13/19 06/13/19 06/13/19 Range/Units 07:45 05:20 05:20 WBC 7.4 5.0 (4.8-10.8) x10^3/uL RBC 3.48 L 3.24 L (4.70-6.10) 10^6/uL Hgb 11.1 L 10.1 L (14.0-18.0) g/dL Hct 33.3 L 30.6 L (42.0-52.0) % MCV 95.7 H 94.4 H (80.0-94.0) fL MCH 31.9 H 31.2 H (27.0-31.0) pg MCHC 33.3 33.0 (32.0-36.0) g/dL RDW 20.8 H 20.7 H (12.0-15.0) % Plt Count 121 L 110 L (130-450) 10^3/uL MPV 9.0 9.5 (7.4-11.4) fL Neut # (Auto) 4.4 3.2 (1.5-6.6) 10^3/uL Lymph # (Auto) 2.2 1.2 L (1.5-3.5) 10^3/uL [place] # (Auto) 0.7 0.5 (0.0-1.0) 10^3/uL Eos # (Auto) 0.0 0.0 (0.0-0.7) 10^3/uL Baso # (Auto) 0.1 0.1 (0.0-0.1) 10^3/uL Absolute Nucleated RBC 0.00 0.00 x10^3/uL Nucleated RBC % 0.0 0.0 /100WBC Manual Slide Review Indicated Platelet Estimate (NORMAL) Platelet Morphology (NORMAL) RBC Morph Micro Appear 1+ ANISOCYTOSIS (NORMAL) PT (9.9-12.6) secs INR (0.8-1.2) Sodium 139 (135-145) mmol/L Potassium 3.7 (3.5-5.0) mmol/L Chloride 105 (101-111) mmol/L Carbon Dioxide 24 (21-32) mmol/L Anion Gap 10.0 (6-13) BUN 10 (6-20) mg/dL Creatinine 0.5 L (0.6-1.2) mg/dL Estimated GFR (MDRD) 173 (>89) Glucose 91 (70-100) mg/dL Calcium 8.1 L (8.5-10.3) mg/dL Phosphorus 3.6 (2.5-4.6) mg/dL Magnesium 1.8 (1.7-2.8) mg/dL Total Bilirubin (0.2-1.0) mg/dL AST (10-42) IU/L ALT (10-60) IU/L Alkaline Phosphatase (42-121) IU/L Total Protein (6.7-8.2) g/dL Albumin (3.2-5.5) g/dL Globulin (2.1-4.2) g/dL Albumin/Globulin Ratio (1.0-2.2) Triglycerides ( - 149) mg/dL Cholesterol ( - 199) mg/dL LDL Cholesterol, Calc ( - 129) mg/dL VLDL Cholesterol mg/dL HDL Cholesterol (60 - ) mg/dL LDL/HDL Ratio (<3.6) Cholesterol/HDL Ratio (<5.0) Lipase (22-51) U/L Urine Color Urine Clarity (CLEAR) Urine pH (5.0-7.5) PH Ur Specific [place] (1.002-1.030) Urine Protein (NEGATIVE) mg/dL Urine Glucose (UA) (NEGATIVE) mg/dL Urine Ketones (NEGATIVE) mg/dL Urine Occult Blood (NEGATIVE) Urine Nitrite (NEGATIVE) Urine Bilirubin (NEGATIVE) Urine Urobilinogen (NORMAL) E.U./dL Ur Leukocyte Esterase (NEGATIVE) Ur Microscopic Review Urine Culture Comments Stl Occult Blood (IFOB) (NEGATIVE) Ethyl Alcohol mg/dL 06/13/19 06/13/19 06/12/19 Range/Units 01:59 00:15 22:00 WBC (4.8-10.8) x10^3/uL RBC (4.70-6.10) 10^6/uL Hgb (14.0-18.0) g/dL Hct (42.0-52.0) % MCV (80.0-94.0) fL MCH (27.0-31.0) pg MCHC (32.0-36.0) g/dL RDW (12.0-15.0) % Plt Count (130-450) 10^3/uL MPV (7.4-11.4) fL Neut # (Auto) (1.5-6.6) 10^3/uL Lymph # (Auto) (1.5-3.5) 10^3/uL [place] # (Auto) (0.0-1.0) 10^3/uL Eos # (Auto) (0.0-0.7) 10^3/uL Baso # (Auto) (0.0-0.1) 10^3/uL Absolute Nucleated RBC x10^3/uL Nucleated RBC % /100WBC Manual Slide Review Platelet Estimate (NORMAL) Platelet Morphology (NORMAL) RBC Morph Micro Appear (NORMAL) PT 11.3 (9.9-12.6) secs INR 1.0 (0.8-1.2) Sodium (135-145) mmol/L Potassium (3.5-5.0) mmol/L Chloride (101-111) mmol/L Carbon Dioxide (21-32) mmol/L Anion Gap (6-13) BUN (6-20) mg/dL Creatinine (0.6-1.2) mg/dL Estimated GFR (MDRD) (>89) Glucose (70-100) mg/dL Calcium (8.5-10.3) mg/dL Phosphorus (2.5-4.6) mg/dL Magnesium (1.7-2.8) mg/dL Total Bilirubin (0.2-1.0) mg/dL AST (10-42) IU/L ALT (10-60) IU/L Alkaline Phosphatase (42-121) IU/L Total Protein (6.7-8.2) g/dL Albumin (3.2-5.5) g/dL Globulin (2.1-4.2) g/dL Albumin/Globulin Ratio (1.0-2.2) Triglycerides 95 ( - 149) mg/dL Cholesterol 240 H ( - 199) mg/dL LDL Cholesterol, Calc 129 ( - 129) mg/dL VLDL Cholesterol 19 mg/dL HDL Cholesterol 92 (60 - ) mg/dL LDL/HDL Ratio 1.4 (<3.6) Cholesterol/HDL Ratio 2.6 (<5.0) Lipase (22-51) U/L Urine Color Urine Clarity (CLEAR) Urine pH (5.0-7.5) PH Ur Specific [place] (1.002-1.030) Urine Protein (NEGATIVE) mg/dL Urine Glucose (UA) (NEGATIVE) mg/dL Urine Ketones (NEGATIVE) mg/dL Urine Occult Blood (NEGATIVE) Urine Nitrite (NEGATIVE) Urine Bilirubin (NEGATIVE) Urine Urobilinogen (NORMAL) E.U./dL Ur Leukocyte Esterase (NEGATIVE) Ur Microscopic Review Urine Culture Comments Stl Occult Blood (IFOB) POSITIVE A (NEGATIVE) Ethyl Alcohol mg/dL 06/12/19 06/12/19 06/12/19 Range/Units 20:47 20:21 20:21 WBC 5.6 (4.8-10.8) x10^3/uL RBC 3.65 L (4.70-6.10) 10^6/uL Hgb 11.2 L (14.0-18.0) g/dL Hct 34.6 L (42.0-52.0) % MCV 94.8 H (80.0-94.0) fL MCH 30.7 (27.0-31.0) pg MCHC 32.4 (32.0-36.0) g/dL RDW 21.0 H (12.0-15.0) % Plt Count 158 (130-450) 10^3/uL MPV 8.5 (7.4-11.4) fL Neut # (Auto) 3.7 (1.5-6.6) 10^3/uL Lymph # (Auto) 1.3 L (1.5-3.5) 10^3/uL [place] # (Auto) 0.5 (0.0-1.0) 10^3/uL Eos # (Auto) 0.0 (0.0-0.7) 10^3/uL Baso # (Auto) 0.1 (0.0-0.1) 10^3/uL Absolute Nucleated RBC 0.00 x10^3/uL Nucleated RBC % 0.0 /100WBC Manual Slide Review Indicated Platelet Estimate NORMAL (130-450,000) (NORMAL) Platelet Morphology NORMAL APPEARANCE (NORMAL) RBC Morph Micro Appear 1+ HYPOCHROMASIA (NORMAL) PT (9.9-12.6) secs INR (0.8-1.2) Sodium 139 (135-145) mmol/L Potassium 4.0 (3.5-5.0) mmol/L Chloride 101 (101-111) mmol/L Carbon Dioxide 25 (21-32) mmol/L Anion Gap 13.0 (6-13) BUN 13 (6-20) mg/dL Creatinine 0.5 L (0.6-1.2) mg/dL Estimated GFR (MDRD) 173 (>89) Glucose 115 H (70-100) mg/dL Calcium 9.1 (8.5-10.3) mg/dL Phosphorus 4.9 H (2.5-4.6) mg/dL Magnesium 2.0 (1.7-2.8) mg/dL Total Bilirubin 0.4 (0.2-1.0) mg/dL AST 71 H (10-42) IU/L ALT 35 (10-60) IU/L Alkaline Phosphatase 92 (42-121) IU/L Total Protein 7.5 (6.7-8.2) g/dL Albumin 3.7 (3.2-5.5) g/dL Globulin 3.8 (2.1-4.2) g/dL Albumin/Globulin Ratio 1.0 (1.0-2.2) Triglycerides ( - 149) mg/dL Cholesterol ( - 199) mg/dL LDL Cholesterol, Calc ( - 129) mg/dL VLDL Cholesterol mg/dL HDL Cholesterol (60 - ) mg/dL LDL/HDL Ratio (<3.6) Cholesterol/HDL Ratio (<5.0) Lipase 336 H (22-51) U/L Urine Color YELLOW Urine Clarity CLEAR (CLEAR) Urine pH 6.5 (5.0-7.5) PH Ur Specific [place] <=1.005 (1.002-1.030) Urine Protein NEGATIVE (NEGATIVE) mg/dL Urine Glucose (UA) NEGATIVE (NEGATIVE) mg/dL Urine Ketones NEGATIVE (NEGATIVE) mg/dL Urine Occult Blood NEGATIVE (NEGATIVE) Urine Nitrite NEGATIVE (NEGATIVE) Urine Bilirubin NEGATIVE (NEGATIVE) Urine Urobilinogen 0.2 (NORMAL) (NORMAL) E.U./dL Ur Leukocyte Esterase NEGATIVE (NEGATIVE) Ur Microscopic Review NOT INDICATED Urine Culture Comments NOT INDICATED Stl Occult Blood (IFOB) (NEGATIVE) Ethyl Alcohol 382.8 mg/dL Assessment/Plan - Problem List (1) Atrial fibrillation with RVR Impression: new onset. No history of afib before. he could have "holiday heart" from his alcohol abuse. Plan: Transfer to ICU with 30 minutes of acute critical care provided in his room and at bedside cardizem 10 mg IVP Procan 1 gram over 1 hour for [facility] protocol check enzymes check ECHO gardner (2) Hematemesis Impression: Previous ultrasound on January 2017 showed him to have a fatty liver. No ductal dilatation. CT of the abdomen in January 2017 as well showed retroperitoneal inflammation around the tail the pancreas. I was looking for esophageal varices. None seen. Plan: change PPI to bid thought of NG tube but if he has varices, we may dislodge clot according to surgery General Surgery consult for EGD check stat hgb and then q6h for 3 more type and screen for 4 units. (3) Pancreatitis Impression: Asymptomatic at this time but reported nausea/vomiting to the ER physician these past few days. Lipases is elevated >300 and he has been drinking alcohol on a daily basis. Once he was admitted, he had no further vomitting and he wanted to eat. Did a clear liquid last night but now NPO. He does have a history of hypertriglyceridemia which may also be contributing to the pancreatitis but triglycerides are 95. Cholesterol 240, LDL 129, HDL 92. - IV hydration - NPO - Check Lipase today. It was ordered for 06/14 am, so will add on to labs today Qualifiers: Chronicity: acute Pancreatitis type: alcohol induced Acute pancreatitis complication: unspecified Qualified Code(s): K85.20 - Alcohol induced acute pancreatitis without necrosis or infection (4) Abnormal head CT Conclusion/Plan: He has prior history of a cavernoma but there is a new lesion concerning for possible hemorrhage. The CT results were discussed by the ER Physician with Neurosurgery at [facility] and a MRI was recommended. No neurologic deficits on exam. Blood pressure is stable. - Neurochecks - MRI brain was planned for today but with transfer to ICU may not be able to do - Monitor blood pressure, will aim for goal of SBP <140 given this may be a small hemorrhage - Holding chemical DVT prophylaxis (5) Alcohol abuse Conclusion/Plan: He reports daily alcohol consumption for the past month although review of prior records suggest he has been drinking alcohol for a longer period of time. Alcohol level is >300 on admission. Reports no history of alcohol withdrawal. - Banana bag today as well. Do 3 days then done. - CIWA protocol - Ativan PRN - Social work consult (6) Alcoholic gastritis Conclusion/Plan: He denies nausea/vomiting to admit MD but told the ER physician that he has been unable to tolerate oral intake these past few days due to nausea and vomiting. Also reports bloody stool which may be related to gastritis. Now that had clarissa hematemesis, suspect alcohol vs. esophageal varices. - Will continue IV Protonix but increase to bid. - Zofran PRN - NPO - General Surgery to consult to do EGD (7) Falls Conclusion/Plan: This may be secondary to his alcohol abuse as he stated that the falls and weakness occurred after he started drinking alcohol and that he feels fine when he is not intoxicated. Will need to rule out a neurologic cause given the findings of his CT head. No neurologic deficits on exam. - Try for MRI head today but doubtful if is unstable - PT evaluation - Alcohol cessation (8) Transaminitis Conclusion/Plan: Secondary to alcohol abuse. AST > ALT. Hepatitis panel was negative 01/2017. Will need to refrain alcohol use. (9) HTN (hypertension) Conclusion/Plan: He is currently normotensive. Will hold off on meds since his GI bleed may cause hypotension. Will weigh that against his risk of brain bleed with the abnormal CT head (10) Hyperlipemia Conclusion/Plan: He has history of hypertriglyceridemia which may be playing a role in his pancreatitis. He is on a statin. Lipid panel reviewed and doing well. No high TG. - Continue statin
[2019-06-13] MEDS ORDERED: MAGNESIUM SULFATE 2 GRAM 2 GM/50 ML BAG IV ONE (08:51)
[2019-06-13] MEDS ORDERED: LISINOPRIL 20 MG TABLET PO SCH (09:00)
[2019-06-13] MEDS ORDERED: MULTIVITAMIN 10 ML, THIAMINE INJ 100 MG, FOLIC ACID INJ 1 MG in SODIUM CHLORIDE 0.9% 1,... IV SCH ×8 (09:00)
[2019-06-13] MEDS: LORazepam 2 MG/ML VIAL IVP PRN ×2 (09:19→17:14)
[2019-06-13] MEDS: PANTOPRAZOLE 40 MG VIAL IVP SCH ×2 (10:41→21:52)
[2019-06-13] MEDS: MULTIVITAMIN 10 ML, THIAMINE INJ 100 MG, FOLIC ACID INJ 1 MG in SODIUM CHLORIDE 0.9% 1,... IV SCH (12:44)
[2019-06-13] MEDS: HYDROmorphone 1 MG/ML CARPUJECT IVP PRN ×3 (13:17→20:23)
[2019-06-13 14:18] LABS: HGB - HEMOGLOBIN 11.5 g/dL (14.0-18.0)
--- NOTE | 2019-06-13 15:13 | ANESTHESIA ---
Pre-Anesthesia VS, & Labs - Diagnosis GI Bleed - Procedure EGD possible banding Vital Signs: Temp Pulse Resp BP Pulse Ox 37.4 C 87 15 175/92 H 97 06/13/19 13:00 06/13/19 14:00 06/13/19 14:00 06/13/19 14:00 06/13/19 14:00 Height 5 ft 6 in Weight (kg) 75 kg Body Mass Index 26.6 - Lab Results Current Lab Results: Laboratory Tests 06/13/19 13:58: Troponin I High Sens 56.4 H* 06/13/19 13:58: Hgb 11.5 L, Hct 34.9 L 06/13/19 07:45: WBC 7.4, RBC 3.48 L, Hgb 11.1 L, Hct 33.3 L, MCV 95.7 H, MCH 31.9 H, MCHC 33.3, RDW 20.8 H, Plt Count 121 L, MPV 9.0, Neut # (Auto) 4.4, Lymph # (Auto) 2.2, [place] # (Auto) 0.7, Eos # (Auto) 0.0, Baso # (Auto) 0.1, Absolute Nucleated RBC 0.00, Nucleated RBC % 0.0, Manual Slide Review Indicated, RBC Morph Micro Appear 1+ ANISOCYTOSIS 06/13/19 07:45: Blood Type O POSITIVE, Antibody Screen NEGATIVE 06/13/19 05:20: Troponin I High Sens 16.2 06/13/19 05:20: Sodium 139, Potassium 3.7, Chloride 105, Carbon Dioxide 24, Anion Gap 10.0, BUN 10, Creatinine 0.5 L, Estimated GFR (MDRD) 173, Glucose 91, Calcium 8.1 L, Phosphorus 3.6, Magnesium 1.8 06/13/19 05:20: WBC 5.0, RBC 3.24 L, Hgb 10.1 L, Hct 30.6 L, MCV 94.4 H, MCH 31.2 H, MCHC 33.0, RDW 20.7 H, Plt Count 110 L, MPV 9.5, Neut # (Auto) 3.2, Lymph # (Auto) 1.2 L, [place] # (Auto) 0.5, Eos # (Auto) 0.0, Baso # (Auto) 0.1, Absolute Nucleated RBC 0.00, Nucleated RBC % 0.0 06/13/19 00:15: Triglycerides 95, Cholesterol 240 H, LDL Cholesterol, Calc 129, VLDL Cholesterol 19, HDL Cholesterol 92, LDL/HDL Ratio 1.4, Cholesterol/HDL Ratio 2.6 06/12/19 22:00: PT 11.3, INR 1.0 06/12/19 20:21: Sodium 139, Potassium 4.0, Chloride 101, Carbon Dioxide 25, Anion Gap 13.0, BUN 13, Creatinine 0.5 L, Estimated GFR (MDRD) 173, Glucose 115 H, Calcium 9.1, Phosphorus 4.9 H, Magnesium 2.0, Total Bilirubin 0.4, AST 71 H, ALT 35, Alkaline Phosphatase 92, Total Protein 7.5, Albumin 3.7, Globulin 3.8, Albumin/Globulin Ratio 1.0, Lipase 336 H, Ethyl Alcohol 382.8 06/12/19 20:21: WBC 5.6, RBC 3.65 L, Hgb 11.2 L, Hct 34.6 L, MCV 94.8 H, MCH 30.7, MCHC 32.4, RDW 21.0 H, Plt Count 158, MPV 8.5, Neut # (Auto) 3.7, Lymph # (Auto) 1.3 L, [place] # (Auto) 0.5, Eos # (Auto) 0.0, Baso # (Auto) 0.1, Absolute Nucleated RBC 0.00, Nucleated RBC % 0.0, Manual Slide Review Indicated, Platelet Estimate NORMAL (130-450,000), Platelet Morphology NORMAL APPEARANCE, RBC Morph Micro Appear 1+ HYPOCHROMASIA Fish Bones: 06/13/19 13:58 06/13/19 05:20 Home Medications and Allergies Home Medications: Ambulatory Orders Aspirin Chewable [[facility] [place] Aspirin] 1 tab PO DAILY 06/12/19 Active Medications Hydromorphone HCl (Dilaudid Inj Carp) 0.5 mg IVP Q2HR PRN PRN Reason: PAIN Last Admin: 06/13/19 13:17 Dose: 0.5 mg Lactated Ringer's (Lr) 1,000 mls @ 100 mls/hr IV .Q10H ALBINO Last Infusion: 06/13/19 12:40 Dose: Infused Multivitamins 10 ml/ Thiamine HCl 100 mg/ Folic Acid 1 mg/Sodium Chloride 1,011.2 mls @ 100 mls/hr IV DAILY [facility] Stop: 06/15/19 19:07 Last Admin: 06/13/19 12:44 Dose: 100 mls/hr Lorazepam (Ativan Inj (Vial)) 1 mg IVP Q30M PRN; Protocol PRN Reason: CIWA >8 Lorazepam (Ativan Inj (Vial)) 0.5 mg IVP Q2H PRN PRN Reason: Anxiety Last Admin: 06/13/19 09:19 Dose: 0.5 mg Ondansetron HCl (Zofran Inj) 4 mg IVP Q6HR PRN PRN Reason: Nausea / Vomiting Pantoprazole Sodium (Protonix) 40 mg IVP BID [facility] Last Admin: 06/13/19 10:41 Dose: 40 mg Sodium Chloride (Normal Saline Flush 0.9%) 10 ml IVP PRN PRN PRN Reason: NEEDED PER PROVIDER ORDERS Last Admin: 06/13/19 13:19 Dose: 10 ml Sodium Chloride (Normal Saline Flush 0.9%) 10 ml IVP 0100,0900,1700 [facility] Last Admin: 06/13/19 09:20 Dose: 10 ml Amitriptyline [Elavil] 50 mg PO QPM 01/21/17 Lisinopril [Zestril] 20 mg PO DAILY 01/21/17 Simvastatin [Zocor] 20 mg PO DAILY 01/21/17 Aspirin Chewable [[place] Aspirin] 1 tab PO DAILY 06/12/19 Allergies/Adverse Reactions: Allergies Allergy/AdvReac Type Severity Reaction Status Date / Time No Known Drug Allergies Allergy Verified 06/12/19 19:35 Anes History & Medical History - Anesthetic History Anesthesia Complications: reports: No previous complications Family history of Anesthesia Complications: Denies Family history of Malignant Hyperthermia: Denies - Medical History Cardiovascular: reports: Hypertension, High cholesterol Pulmonary: reports: None Gastrointestinal: reports: GERD Urinary: reports: Retention Neuro: reports: None Musculoskeletal: reports: None Endocrine/Autoimmune: reports: None Blood Disorders: reports: None Skin: reports: None Smoking Status: Current every day smoker Psychosocial: reports: Substance abuse, Alcohol Other Past Medical History: Alcoholism - Surgical History Orthopedic: Knee replacement, Shoulder arthroplasty Exam General: Alert, Cooperative Dental: WNL Mouth Openin Fingerbreadth Neck Mobility: Normal Mallampati classification: II Thyromental Distance: 4-6 cm Respiratory: Lungs clear Cardiovascular: Regular rate Mental/Cognitive Status: Confused, Oriented to name Cognitive Status: Drug/alcohol affected Plan Anesthesia Type: General Consent for Procedure(s) Verified and Reviewed: Yes Code Status: Attempt Resuscitation ASA classification: 3-Severe systemic disease Is this case an emergency?: Yes
--- NOTE | 2019-06-13 15:51 | CONSULTATION NOTE ---
Referring Provider Name of Referring Provider:: Dr. Mayra Christina Consult Date: 06/13/19 Chief Complaint - Chief Complaint Chief Complaint: Hematemesis History of Present Illness - Admitted From Admitted From:: [facility] ED - History Obtained From Records Reviewed: Yes History obtained from: Primarily the chart Exam Limitations: Patient's mental state - History of Present Illness HPI Comment/Other: I was asked by Dr. Christina to see this 53-year-old male for hematemesis. The hematemesis itself was witnessed while the patient was in the hospital. Despite the patient's denial it is clear that he has a long-standing history with alcohol abuse and consumes much more alcohol than he admits to. He has been admitted with pancreatitis. Blood alcohol levels have been higher than 350 and a chart review reveals this issue going back several years. In my d iscussions with the patient he states he does not know anything about throwing up blood. He denies going through withdrawal. He denies having any ulcer history. History - Past Medical History Cardiovascular: reports: Hypertension, High cholesterol Respiratory: reports: None Neuro: reports: None Endocrine/Autoimmune: reports: None GI: reports: GERD : reports: Retention HEENT: reports: Chronic vision loss Psych: reports: Other Musculoskeletal: reports: None Derm: reports: None MRSA Hx?: No Other Past Medical History: Alcoholism - Past Surgical History Ortho: reports: Knee replacement, Shoulder arthroplasty - Family & Social History Family History Comment/Other: He reports no known family history. Living arrangement: At home Living Situation: With spouse/s.o. Social History Notes: He lives with his in [place]. 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 He drinks alcohol on a daily basis but only for the past month. States he has been drinking since the age of 16. He does smoke a few cigarettes day. Denies illicit drug use. - Substance History Use: Uses substance without health or social issues: Tobacco Abuse: Recurrent use of substance despite neg consequences: Alcohol - POLST Patient has POLST: No Meds/Allgy - Home Medications Home Medications: Ambulatory Orders Medication Instructions Recorded Confirmed Amitriptyline [Elavil] 50 mg PO QPM 01/21/17 06/12/19 Lisinopril [Zestril] 20 mg PO DAILY 01/21/17 06/12/19 Simvastatin [Zocor] 20 mg PO DAILY 01/21/17 06/12/19 Aspirin Chewable [[facility] [place] 1 tab PO DAILY 06/12/19 06/12/19 Aspirin] - Allergies Allergies/Adverse Reactions: Allergies Allergy/AdvReac Type Severity Reaction Status Date / Time No Known Drug Allergies Allergy Verified 06/12/19 19:35 Review of Systems - Constitutional Constitutional: reports: Other (I could not get any significant review of systems from this patient due to his mental status. None of his answers were trustworthy.) Exam - Vital Signs Reviewed Vital Signs: Yes Vital Signs: Vital Signs x48h Temp Pulse Resp BP Pulse Ox 06/13/19 15:00 89 13 179/108 H 98 06/13/19 14:00 87 15 175/92 H 97 06/13/19 13:00 37.4 C 89 17 167/82 H 98 06/13/19 12:00 37.1 C 93 18 165/87 H 97 06/13/19 11:00 101 H 19 178/98 H 98 06/13/19 10:00 97 17 174/94 H 97 06/13/19 09:00 106 H 20 153/102 H 96 06/13/19 08:45 119 H 21 146/96 H 98 06/13/19 08:33 36.8 C 110 H 16 160/94 H 95 06/13/19 08:30 107 H 19 146/96 H 94 06/13/19 08:15 118 H 19 160/94 H 95 06/13/19 08:00 107 H 21 140/84 H 92 06/13/19 07:55 164 H 22 129/89 H 92 06/13/19 07:50 166 H 18 121/89 H 93 - Physical Exam General Appearance: positive: No acute distress (Somnolent.) Eyes Bilateral: positive: No lid inflammation, Conjunctivae nml, No scleral i cterus ENT: positive: Dry mucous membranes Neck: positive: Trachea midline Respiratory: positive: Chest non-tender Cardiovascular: positive: Regular rate & rhythm Abdomen: positive: Non-tender, Nml bowel sounds Extremities: positive: Non-tender, Nml appearance Neurologic/Psychiatric: positive: Other (Somnolent with depressed mood and affect.) Conclusion/Plan - Diagnosis Diagnosis: Hematemesis and anemia - Plan Plan: Esophagogastroduodenoscopy with possible biopsies and/or polypectomies. Indications, procedure, alternatives (such as barium studies and even no procedure at all) and risks including but not limited to perforation requiring operative repair, bleeding with its risks, and were fully explained to him but I am unsure as to how much of this he will retain and have asked that consent be obtained from his family (while him in the operating room with another emergent case). Considering his alcohol use and hematemesis being intubated for this procedure will be safer. Ultimately, verbal and written consent was obtained from the family as well as the patient. The patient in preparation for his esophagogastroduodenoscopy will be n.p.o. 30 minutes of [id number] time spent with the patient the majority of which was spent in discussion, coordination of their care, and completion of the requisite paperwork Feron disclaimer: This document was created in part using voice recognition technology. Because of the inherent limitations of the system ([employer]'s [employer] Dictate user manual states that the licensee understands that speech recognition is a statistical process and that recognition errors are inherent in the process), occasional same sounding word substitutions and grammatical errors do occur and persist despite proofreading. Please read this document for context. - Lab Results Lab results reviewed: Yes Johann Bones: 06/13/19 13:58 06/13/19 05:20
[2019-06-13] MEDS ORDERED: LACTATED RINGERS 1,000 ML IV ONE (16:03)
[2019-06-13] MEDS ORDERED: EPINEPHrine 1 MG/ML AMP ONE (16:06)
[2019-06-13] MEDS ORDERED: THROMBIN (BOVINE) 5,000 UNIT VIAL TOP ONE (16:06)
--- NOTE | 2019-06-13 16:34 | OPERATIVE REPORT ---
Operative Report - General Admit Date: 06/12/19 Procedure Date: 06/13/19 Planned Procedure: EGD Pre-Op Diagnosis: Hematemesis Procedure Performed: 3 mm punch biopsy x2 of RIGHT tongue Post Op Diagnosis: Massively enlarged tongue with firm white lesions - Procedure Note Primary Surgeon: Rashid Sadler MD Anesthesia Provider: Naren Burr MD Anesthesia Technique: General ET tube IV Fluids (mL): 350 Estimated Blood Loss (mL): 1 Complications: None. - Other Other Information/Narrative: I have been asked by Dr. Christina to perform an EGD on this patient for hematemesis. The patient was seen, examined, and consented for an EGD with possible biopsies and/or polypectomies. At the time of the physicians consult, the status of the patient's tongue was unappreciated. When the patient was intubated for the procedure it was clear that he had a massively enlarged and firm tongue. I completed the EGD and failed to find any source of bleeding in the esophagus, stomach, or duodenum. Instead, it was clear that the bleeding had come from the tongue and that there were some hard/firm lesions on the tongue. Due to concerns regarding the patient's airway, we elected to keep the patient intubated, I called Dr. Christina to the operating room so she could see the pathophysiology and so we could collaboratively come to a diagnostic and therapeutic plan (Medicine, Surgery and Anesthesia were all part of the conversation). With the patient intubated and anesthetized, I was asked to perform a biopsy of the tongue lesions to further guide the diagnostic plan. Two 3 mm punch biopsies were performed of a firm white area of the tongue and the base was cauterized but when this failed to control the bleeding a 3-0 Vicryl suture was placed which controlled the bleeding. The biopsies were sent in formalin for pathologic evaluation. At this point a time out was performed that confirmed that all the counts were correct, the procedure that was performed, the blood loss, the IV fluids administered, and the patients condition. Having tolerated the procedure well, the patient was subsequently taken to the intensive care unit intubated in stable condition. Dragon disclaimer: This document was created in part using voice recognition technology. Because of the inherent limitations of the system ([employer] user manual states that the licensee understands that speech recognition is a statistical process and that recognition errors are inherent in the process), occasional same sounding word substitutions and grammatical errors do occur and persist despite proofreading. Please read this document for context.
[2019-06-13] MEDS ORDERED: BACITRACIN 50,000 UNIT VIAL ONE (16:59)
[2019-06-13] MEDS ORDERED: METOPROLOL 5 MG/5 ML VIAL IVP PRN (17:53)
[2019-06-13] MEDS: ENALAPRILAT 1.25 MG/ML VIAL IVP SCH (18:16)
[2019-06-13] MEDS ORDERED: INSULIN ASPART 300 UNIT/3 ML PEN SUBQ ONE (18:21)
[2019-06-13] MEDS ORDERED: DEXTROSE 5% 100 ML IV ONE (18:25)
[2019-06-13] MEDS: LORazepam 100MG/100ML D5W 100 ML IV SCH (18:40)
[2019-06-13 20:21] LABS: HGB - HEMOGLOBIN 12.3 g/dL (14.0-18.0)
[2019-06-13] MEDS ORDERED: ATORVASTATIN 10 MG TABLET PO SCH (21:00)
[2019-06-13] MEDS ORDERED: AMITRIPTYLINE 25 MG TABLET PO SCH (21:00)
[2019-06-14] MEDS: ENALAPRILAT 1.25 MG/ML VIAL IVP SCH ×4 (01:59→12:08)
[2019-06-14] MEDS: LACTATED RINGERS 1,000 ML IV SCH (04:21)
[2019-06-14] MEDS: SODIUM CHLORIDE FLUSH 0.9% 10 ML SYRINGE IVP SCH ×4 (04:21→20:41)
[2019-06-14] MEDS: HYDROmorphone 1 MG/ML CARPUJECT IVP PRN ×5 (04:41→21:37)
[2019-06-14 05:15] LABS: ABG BASE EXCESS 1.9 mmol/L (-2.0-3.0); ABG HCO3 26.5 mmol/L (22.0-26.0); ABG OXYGEN SATURATION 97 % (94-98); ABG PCO2 42 mmHg (34-45); ABG PH 7.42 (7.35-7.45); ABG PO2 95 mmHg (80-100); ABG TCO2 27.8 MMOL/L (21.0-29.0); ALLEN TEST POSITIVE
[2019-06-14 05:26] LABS: BASOPHILS % (AUTO) 0.2 %; HGB - HEMOGLOBIN 11.2 g/dL (14.0-18.0); LYMPHOCYTES # (AUTO) 0.3 10^3/uL (1.5-3.5); LYMPHOCYTES % (AUTO) 5.6 %; MEAN CORPUSCULAR HEMOGLOBIN 30.4 pg (27.0-31.0); MEAN CORPUSCULAR HGB CONC 31.6 g/dL (32.0-36.0); MEAN CORPUSCULAR VOLUME 96.2 fL (80.0-94.0); MEAN PLATELET VOLUME 10.2 fL (7.4-11.4); MONOCYTES # (AUTO) 0.3 10^3/uL (0.0-1.0); MONOCYTES % (AUTO) 5.2 %; NEUTROPHILS # (AUTO) 5.1 10^3/uL (1.5-6.6); NEUTROPHILS % (AUTO) 88.7 %; PLT - PLATELET COUNT 138 10^3/uL (130-450); RED BLOOD COUNT 3.68 10^6/uL (4.70-6.10); RED CELL DISTRIBUTION WIDTH 20.3 % (12.0-15.0); WHITE BLOOD COUNT 5.8 x10^3/uL (4.8-10.8)
[2019-06-14 05:43] LABS: CREATININE 0.7 mg/dL (0.6-1.2); MAGNESIUM 2.3 mg/dL (1.7-2.8); PHOSPHORUS 4.2 mg/dL (2.5-4.6)
[2019-06-14] MEDS: SODIUM CHLORIDE 0.9% 1,000 ML IV SCH ×2 (08:05→20:40)
[2019-06-14] MEDS: PANTOPRAZOLE 40 MG VIAL IVP SCH ×2 (09:47→20:41)
[2019-06-14] MEDS: MULTIVITAMIN 10 ML, THIAMINE INJ 100 MG, FOLIC ACID INJ 1 MG in SODIUM CHLORIDE 0.9% 1,... IV SCH (09:48)
--- NOTE | 2019-06-14 10:45 | PROVIDER PROGRESS NOTE ---
Subjective - Prog Note Date Prog Note Date: 06/14/19 Prog Note Time: 10:41 - Subjective Subjective: Yesterday, there was an unwitnessed event and there was a rapid response. When we got to him he was in rapid A. fib, had blood covering his mouth, and he was unresponsive to sternal rub. But he had high blood pressure as well as atrial fibrillation. He went to the ICU, and serial hemoglobin showed him to have a stable hemoglobin and hematocrit. Procan 1 g following Cardizem 10 mg IV push resulted in spontaneous conversion to sinus rhythm. Hypertension continued and that responded to an Ativan drip as well as IV enalapril. He was encephalopathic and responding to my voice and 's voice by then. He was taken to the OR for an EGD were his stomach and esophagus were clear. What was found was a lacerated tongue along the tooth line on the right side of his tongue. He also had a flat plaquing white area. The tongue is so swollen that it takes up his mouth, and I cannot get my finger over the tongue to feel on the backside or sides beyond the right side. As such he received a dose of Decadron and was kept intubated for airway protection. As such, it is not clear what happened to this gentleman yesterday. One scenario is that of alcohol withdrawal seizure, with biting of his tongue, subsequent arrhythmia. Another is antecedent biting of tongue prior to hospital left his tongue quite swollen, blocked his airway and he had a brief episode of apnea. In retrospect, the patient was alert, responsive yesterday and responded to most of our questions with simple yes no answers or shrugging of the shoulders or use of his hands. I have known this gentleman from a previous admission and is usually quite verbal, and yesterday he was almost silent. He may have bitten his tongue even before he came in. In any case, he remains in the ICU. Tongue is still quite swollen. Easy to ventilate. Hemoglobin is remained stable. Rhythm is remained sinus. His alcohol withdrawal is controlled with an Ativan drip and PRN antihypertensives. Current Medications - Current Medications Current Medications: Active Medications Chlorhexidine Gluconate (Peridex) 15 ml PO BID ALBINO Enalaprilat (Vasotec Inj) 1.25 mg IVP Q6HR ALBINO Last Admin: 06/14/19 05:28 Dose: Not Given Hydromorphone HCl (Dilaudid Inj Carp) 0.5 mg IVP Q2HR PRN PRN Reason: PAIN Last Admin: 06/14/19 08:00 Dose: 0.5 mg Multivitamins 10 ml/ Thiamine HCl 100 mg/ Folic Acid 1 mg/Sodium Chloride 1,011.2 mls @ 100 mls/hr IV DAILY [facility] Stop: 06/15/19 19:07 Last Admin: 06/14/19 09:48 Dose: 100 mls/hr Lorazepam (Ativan) 100 mls @ 0 mls/hr IV .Q0M ALBINO; Protocol Last Admin: 06/13/19 18:40 Dose: 5 ml/hr, 5 mls/hr Sodium Chloride (Normal Saline 0.9%) 1,000 mls @ 75 mls/hr IV .[id number] [facility] Last Infusion: 06/14/19 09:51 Dose: 0 mls/hr Lorazepam (Ativan Inj (Vial)) 1 mg IVP Q30M PRN; Protocol PRN Reason: CIWA >8 Lorazepam (Ativan Inj (Vial)) 0.5 mg IVP Q2H PRN PRN Reason: Anxiety Last Admin: 06/13/19 17:14 Dose: 0.5 mg Metoprolol Tartrate (Lopressor Inj) 5 mg IVP Q6H PRN PRN Reason: Hypertensive Emergency Ondansetron HCl (Zofran Inj) 4 mg IVP Q6HR PRN PRN Reason: Nausea / Vomiting Last Admin: 06/13/19 18:23 Dose: 4 mg Pantoprazole Sodium (Protonix) 40 mg IVP BID [facility] Last Admin: 06/14/19 09:47 Dose: 40 mg Sodium Chloride (Normal Saline Flush 0.9%) 10 ml IVP PRN PRN PRN Reason: NEEDED PER PROVIDER ORDERS Last Admin: 06/13/19 15:42 Dose: 10 ml Sodium Chloride (Normal Saline Flush 0.9%) 10 ml IVP 0100,0900,1700 [facility] Last Admin: 06/14/19 04:21 Dose: Not Given Amitriptyline [Elavil] 50 mg PO QPM 01/21/17 Lisinopril [Zestril] 20 mg PO DAILY 01/21/17 Simvastatin [Zocor] 20 mg PO DAILY 01/21/17 Aspirin Chewable [[place] Aspirin] 1 tab PO DAILY 06/12/19 Objective - Vital Signs/Intake & Output Reviewed Vital Signs: Yes Vital Signs: Vital Signs Temp Pulse Pulse Resp BP Pulse Ox 06/14/19 10:17 68 06/14/19 10:00 70 12 110/66 98 06/14/19 09:00 64 12 121/77 99 06/14/19 08:00 37.1 C 62 12 103/77 100 06/14/19 07:56 65 06/14/19 07:00 57 L 12 101/64 99 Intake & Output: Intake & Output 06/11/19 06/12/19 06/13/19 06/14/19 23:59 23:59 23:59 23:59 Intake Total 1035.2 3938.333 850.367 Output Total 1200 7540 530 Balance -164.8 -3601.667 320.367 - Objective General Appearance: positive: No acute distress, Alert (In spite of the Ativan drip. He responds yes, no to our questions. Shrugs his shoulders when he cannot verbalize the answer. Yesterday he had a headache that was controlled with half a milligram of Dilaudid.) Eyes Bilateral: positive: PERRL, EOMI ENT: positive: Other (Tongue is still swollen. Takes up his entire mouth. No blood.) Neck: positive: No JVD. negative: Stiff neck Respiratory: positive: Chest non-tender, Other (Intubated, ET tube in place.). negative: Wheezes, Rales, Rhonchi Cardiovascular: positive: Regular rate & rhythm. negative: Gallop/S4, Friction rub Abdomen: positive: Non-tender, No organomegaly, Nml bowel sounds, No distention Skin: positive: Warm, Dry Neurologic/Psychiatric: positive: CN's nml (2-12), Motor nml - Lab Results Fish Bones: 06/14/19 05:05 06/14/19 05:05 Other Labs: Lab Results x24hrs 06/14/19 06/14/19 06/14/19 Range/Units 05:05 05:05 05:05 WBC (4.8-10.8) x10^3/uL RBC (4.70-6.10) 10^6/uL Hgb (14.0-18.0) g/dL Hct (42.0-52.0) % MCV (80.0-94.0) fL MCH (27.0-31.0) pg MCHC (32.0-36.0) g/dL RDW (12.0-15.0) % Plt Count (130-450) 10^3/uL MPV (7.4-11.4) fL Neut # (Auto) (1.5-6.6) 10^3/uL Lymph # (Auto) (1.5-3.5) 10^3/uL [place] # (Auto) (0.0-1.0) 10^3/uL Eos # (Auto) (0.0-0.7) 10^3/uL Baso # (Auto) (0.0-0.1) 10^3/uL Absolute Nucleated RBC x10^3/uL Nucleated RBC % /100WBC Bld Gas Analysis Time 0517 Sample Site LEFT RADIAL ABG pH 7.42 (7.35-7.45) ABG pCO2 42 (34-45) mmHg ABG pO2 95 (80-100) mmHg ABG HCO3 26.5 H (22.0-26.0) mmol/L ABG Total CO2 27.8 (21.0-29.0) MMOL/L ABG O2 Saturation 97 (94-98) % ABG Base Excess 1.9 (-2.0-3.0) mmol/L Brian Test POSITIVE Respiration Rate 12 b/min O2 Delivery Device VENTILATOR Vent Mode SIMV FiO2 28.00 Tidal Volume 600 mL PEEP 5 cmH2O Pressure Support Vent 10 cmH2O Sodium 135 (135-145) mmol/L Potassium 3.9 (3.5-5.0) mmol/L Chloride 98 L (101-111) mmol/L Carbon Dioxide 24 (21-32) mmol/L Anion Gap 13.0 (6-13) BUN 16 (6-20) mg/dL Creatinine 0.7 (0.6-1.2) mg/dL Estimated GFR (MDRD) 117 (>89) Glucose 172 H (70-100) mg/dL Calcium 8.0 L (8.5-10.3) mg/dL Phosphorus 4.2 (2.5-4.6) mg/dL Magnesium 2.3 (1.7-2.8) mg/dL Troponin I High Sens 252.7 H* (2.3-19.7) pg/mL Lipase (22-51) U/L 06/14/19 06/14/19 06/13/19 Range/Units 05:05 05:05 23:55 WBC 5.8 (4.8-10.8) x10^3/uL RBC 3.68 L (4.70-6.10) 10^6/uL Hgb 11.2 L (14.0-18.0) g/dL Hct 35.4 L (42.0-52.0) % MCV 96.2 H (80.0-94.0) fL MCH 30.4 (27.0-31.0) pg MCHC 31.6 L (32.0-36.0) g/dL RDW 20.3 H (12.0-15.0) % Plt Count 138 (130-450) 10^3/uL MPV 10.2 (7.4-11.4) fL Neut # (Auto) 5.1 (1.5-6.6) 10^3/uL Lymph # (Auto) 0.3 L (1.5-3.5) 10^3/uL [place] # (Auto) 0.3 (0.0-1.0) 10^3/uL Eos # (Auto) 0.0 (0.0-0.7) 10^3/uL Baso # (Auto) 0.0 (0.0-0.1) 10^3/uL Absolute Nucleated RBC 0.00 x10^3/uL Nucleated RBC % 0.0 /100WBC Bld Gas Analysis Time Sample Site ABG pH (7.35-7.45) ABG pCO2 (34-45) mmHg ABG pO2 (80-100) mmHg ABG HCO3 (22.0-26.0) mmol/L ABG Total CO2 (21.0-29.0) MMOL/L ABG O2 Saturation (94-98) % ABG Base Excess (-2.0-3.0) mmol/L Brian Test Respiration Rate b/min O2 Delivery Device Vent Mode FiO2 Tidal Volume mL PEEP cmH2O Pressure Support Vent cmH2O Sodium (135-145) mmol/L Potassium (3.5-5.0) mmol/L Chloride (101-111) mmol/L Carbon Dioxide (21-32) mmol/L Anion Gap (6-13) BUN (6-20) mg/dL Creatinine (0.6-1.2) mg/dL Estimated GFR (MDRD) (>89) Glucose (70-100) mg/dL Calcium (8.5-10.3) mg/dL Phosphorus (2.5-4.6) mg/dL Magnesium (1.7-2.8) mg/dL Troponin I High Sens 269.6 H* (2.3-19.7) pg/mL Lipase 122 H (22-51) U/L 06/13/19 06/13/19 06/13/19 Range/Units 20:17 20:17 13:58 WBC (4.8-10.8) x10^3/uL RBC (4.70-6.10) 10^6/uL Hgb 12.3 L (14.0-18.0) g/dL Hct 37.0 L (42.0-52.0) % MCV (80.0-94.0) fL MCH (27.0-31.0) pg MCHC (32.0-36.0) g/dL RDW (12.0-15.0) % Plt Count (130-450) 10^3/uL MPV (7.4-11.4) fL Neut # (Auto) (1.5-6.6) 10^3/uL Lymph # (Auto) (1.5-3.5) 10^3/uL [place] # (Auto) (0.0-1.0) 10^3/uL Eos # (Auto) (0.0-0.7) 10^3/uL Baso # (Auto) (0.0-0.1) 10^3/uL Absolute Nucleated RBC x10^3/uL Nucleated RBC % /100WBC Bld Gas Analysis Time Sample Site ABG pH (7.35-7.45) ABG pCO2 (34-45) mmHg ABG pO2 (80-100) mmHg ABG HCO3 (22.0-26.0) mmol/L ABG Total CO2 (21.0-29.0) MMOL/L ABG O2 Saturation (94-98) % ABG Base Excess (-2.0-3.0) mmol/L Brian Test Respiration Rate b/min O2 Delivery Device Vent Mode FiO2 Tidal Volume mL PEEP cmH2O Pressure Support Vent cmH2O Sodium (135-145) mmol/L Potassium (3.5-5.0) mmol/L Chloride (101-111) mmol/L Carbon Dioxide (21-32) mmol/L Anion Gap (6-13) BUN (6-20) mg/dL Creatinine (0.6-1.2) mg/dL Estimated GFR (MDRD) (>89) Glucose (70-100) mg/dL Calcium (8.5-10.3) mg/dL Phosphorus (2.5-4.6) mg/dL Magnesium (1.7-2.8) mg/dL Troponin I High Sens 190.8 H* 56.4 H* (2.3-19.7) pg/mL Lipase (22-51) U/L 06/13/19 Range/Units 13:58 WBC (4.8-10.8) x10^3/uL RBC (4.70-6.10) 10^6/uL Hgb 11.5 L (14.0-18.0) g/dL Hct 34.9 L (42.0-52.0) % MCV (80.0-94.0) fL MCH (27.0-31.0) pg MCHC (32.0-36.0) g/dL RDW (12.0-15.0) % Plt Count (130-450) 10^3/uL MPV (7.4-11.4) fL Neut # (Auto) (1.5-6.6) 10^3/uL Lymph # (Auto) (1.5-3.5) 10^3/uL [place] # (Auto) (0.0-1.0) 10^3/uL Eos # (Auto) (0.0-0.7) 10^3/uL Baso # (Auto) (0.0-0.1) 10^3/uL Absolute Nucleated RBC x10^3/uL Nucleated RBC % /100WBC Bld Gas Analysis Time Sample Site ABG pH (7.35-7.45) ABG pCO2 (34-45) mmHg ABG pO2 (80-100) mmHg ABG HCO3 (22.0-26.0) mmol/L ABG Total CO2 (21.0-29.0) MMOL/L ABG O2 Saturation (94-98) % ABG Base Excess (-2.0-3.0) mmol/L Brian Test Respiration Rate b/min O2 Delivery Device Vent Mode FiO2 Tidal Volume mL PEEP cmH2O Pressure Support Vent cmH2O Sodium (135-145) mmol/L Potassium (3.5-5.0) mmol/L Chloride (101-111) mmol/L Carbon Dioxide (21-32) mmol/L Anion Gap (6-13) BUN (6-20) mg/dL Creatinine (0.6-1.2) mg/dL Estimated GFR (MDRD) (>89) Glucose (70-100) mg/dL Calcium (8.5-10.3) mg/dL Phosphorus (2.5-4.6) mg/dL Magnesium (1.7-2.8) mg/dL Troponin I High Sens (2.3-19.7) pg/mL Lipase (22-51) U/L Assessment/Plan - Problem List (1) Hematemesis Impression: That symptom is now in doubt. He did have blood all over his mouth yesterday is most likely from tongue laceration NOT GI bleed. Previous ultrasound on January 2017 showed him to have a fatty liver. No ductal dilatation. CT of the abdomen in January 2017 as well showed retroperitoneal inflammation around the tail the pancreas. I was looking for esophageal varices. None seen. EGD negative. Tongue laceration may be from : unwitnessed seizure vs. previous bite while intoxicated vs. tongue cancer. Hgb for q6h checks remained stable. Plan: changed PPI to bid await biopsy of tongue results chlorhexidine mouth wash wait for tongue swelling to go down before I extubated. (2) Pancreatitis, mild, on admission. Resolved. Impression: Asymptomatic at this time but reported nausea/vomiting to the ER physician these past few days. Lipases is elevated >300 and he has been drinking alcohol on a daily basis for 4 months according to his . He drinks starting at 3 or 4 in the morning and continues all day long until he's asleep. Once he was admitted, he had no further vomitting and he wanted to eat. Did a clear liquid night of admission but was made NPO 9/21 am with blood on mouth we thought was GI bleed. He is now intubated. He does have a history of hypertriglyceridemia which may also be contributing to the pancreatitis but triglycerides are 95. Cholesterol 240, LDL 129, HDL 92. - IV hydration - NPO until extubated. - Lipase 122 today. Qualifiers: Chronicity: acute Pancreatitis type: alcohol induced Acute pancreatitis complication: unspecified Qualified Code(s): K85.20 - Alcohol induced acute p ancreatitis without necrosis or infection (4) Abnormal head CT Conclusion/Plan: He has prior history of a cavernoma but there is a new lesion concerning for possible hemorrhage. The CT results were discussed by the ER Physician with Neurosurgery at [facility] and a MRI was recommended. No neurologic deficits on exam. Blood pressure is stable. Unaable to do MRI while on vent. - Neurochecks especially in view of possible unwitness seizure yesterday am. - MRI brain was planned for 06/13 but with transfer to ICU may not be able to do for now - Monitor blood pressure, will aim for goal of SBP <140 given this may be a small hemorrhage. He was hypertensive yesterday but responded to ativan drip and enalapril IV - Holding chemical DVT prophylaxis (5) Alcohol abuse, continuous Conclusion/Plan: He reports daily alcohol consumption for the past month although review of prior records suggest he has been drinking alcohol for a longer period of time. confirms daily nonstop drinking for years but in the last 4 months, escalated. Alcohol level is >300 on admission. Reports no history of alcohol withdrawal. - Banana bag for 3 days then done. - CIWA protocol abandoned since he's intubated and put on ativan drip - Social work consult (6) Alcoholic gastritis presumed Conclusion/Plan: He denies nausea/vomiting to admit MD but told the ER physician that he has been unable to tolerate oral intake these past few days due to nausea and vomiting. Also reports bloody stool which may be related to gastritis. Now that had blood around the mouth, I suspected alcohol gastritis vs. esophageal varices. Yesterday's EGD was negative. - Will continue IV Protonix but increase to bid. - Zofran PRN - NPO for now. (7) Falls Conclusion/Plan: This may be secondary to his alcohol abuse as he stated that the falls and weakness occurred after he started drinking alcohol and that he feels fine when he is not intoxicated. Will need to rule out a neurologic cause given the findings of his CT head. No neurologic deficits on exam. - Try for MRI head when no longer on vent. - PT evaluation - Alcohol cessation (8) Transaminitis Conclusion/Plan: Secondary to alcohol abuse. AST > ALT. Hepatitis panel was negative 01/2017. Will need to refrain alcohol use. (9) HTN (hypertension) Conclusion/Plan: He was normotensive on admit and yesterday am until he went into ICU and on vent. Needed enalapril IV and has good control now. (10) Hyperlipemia Conclusion/Plan: He has history of hypertriglyceridemia which may be playing a role in his pancreatitis. He is on a statin. Lipid panel reviewed and doing well. No high TG. - Continue statin (11) atrial fibrillation with RVR Resolved yesterday after Cardizem 10 mg IV push, and half a bag of Procan 1 g over 1 hour. I did complete the Procan drip. Troponins have been mildly elevated. Have already peaked and started to drop. They are high-sensitivity troponins, and peaked at 250. There is no acute ST-T wave changes and I am not interpreting this is an MN.
--- NOTE | 2019-06-14 10:47 | XRAY Report ---
Reason: vent Procedure Date: 06/14/2019 Accession Number: [id number] / [id number] Procedure: XR - Chest 1 View X-Ray CPT Code: 41193 FULL RESULT: EXAM: CHEST RADIOGRAPHY EXAM DATE: 06/14/2019 10:17 AM. CLINICAL HISTORY: Post intubation follow-up. COMPARISON: [facility] W/PA CHEST LT 06/12/2019 8:48 PM. TECHNIQUE: 1 view. FINDINGS IMPRESSION: 1. The tip of the new endotracheal tube is at the clavicle level and the tip of the new OG-tube is in the gastric fundus, unremarkable. No pneumothorax or significant amount of pleural effusion. 2. Small and mild patchy opacity in the bilateral medial lower lung zones again noted, similar to prior exam, likely small atelectasis versus focal infiltrate 3. No cardiomegaly or mediastinal widening. RADIA
[2019-06-14] MEDS: LORazepam 100MG/100ML D5W 100 ML IV SCH (10:49)
[2019-06-14] MEDS ORDERED: DEXAMETHASONE 10 MG/ML VIAL IVP ONE (16:20)
[2019-06-14] MEDS: LORazepam 2 MG/ML VIAL IVP PRN (16:40)
--- NOTE | 2019-06-14 16:42 | MISCELLANEOUS PROVIDER NOTE ---
Miscellaneous Provider Note - - Note: Will sign off of the patient's care as there are no surgically correctable issues. Please contact me if this changes and I am thankful for the opportunity to participate in this patient's care.
[2019-06-14] MEDS: CHLORHEXIDINE GLUCONATE 15 ML UDC PO SCH (20:41)
[2019-06-15] MEDS: HYDROmorphone 1 MG/ML CARPUJECT IVP PRN ×3 (01:05→07:59)
[2019-06-15] MEDS: ENALAPRILAT 1.25 MG/ML VIAL IVP SCH ×4 (01:06→17:59)
[2019-06-15] MEDS: LORazepam 100MG/100ML D5W 100 ML IV SCH (04:18)
[2019-06-15 04:56] LABS: BASOPHILS % (AUTO) 0.2 %; HGB - HEMOGLOBIN 10.1 g/dL (14.0-18.0); LYMPHOCYTES # (AUTO) 0.3 10^3/uL (1.5-3.5); LYMPHOCYTES % (AUTO) 3.3 %; MEAN CORPUSCULAR HEMOGLOBIN 31.8 pg (27.0-31.0); MEAN CORPUSCULAR HGB CONC 32.5 g/dL (32.0-36.0); MEAN CORPUSCULAR VOLUME 97.8 fL (80.0-94.0); MEAN PLATELET VOLUME 9.8 fL (7.4-11.4); MONOCYTES # (AUTO) 0.5 10^3/uL (0.0-1.0); MONOCYTES % (AUTO) 4.5 %; NEUTROPHILS # (AUTO) 9.5 10^3/uL (1.5-6.6); NEUTROPHILS % (AUTO) 91.3 %; PLT - PLATELET COUNT 120 10^3/uL (130-450); RED BLOOD COUNT 3.18 10^6/uL (4.70-6.10); RED CELL DISTRIBUTION WIDTH 19.6 % (12.0-15.0); WHITE BLOOD COUNT 10.4 x10^3/uL (4.8-10.8)
[2019-06-15 05:11] LABS: CALCIUM 8.5 mg/dL (8.5-10.3); CREATININE 0.6 mg/dL (0.6-1.2); MAGNESIUM 2.3 mg/dL (1.7-2.8); PHOSPHORUS 2.4 mg/dL (2.5-4.6)
[2019-06-15 05:41] LABS: ABG BASE EXCESS -0.8 mmol/L (-2.0-3.0); ABG HCO3 23.6 mmol/L (22.0-26.0); ABG OXYGEN SATURATION 97 % (94-98); ABG PCO2 38 mmHg (34-45); ABG PH 7.41 (7.35-7.45); ABG PO2 95 mmHg (80-100); ABG TCO2 24.8 MMOL/L (21.0-29.0); ALLEN TEST POSITIVE
[2019-06-15] MEDS: SODIUM CHLORIDE 0.9% 1,000 ML IV SCH ×2 (06:46→20:04)
[2019-06-15] MEDS ORDERED: POTASSIUM PHOSPHATE 15 MMOL in SODIUM CHLORIDE 0.9% 250 ML IV ONE (07:08)
--- NOTE | 2019-06-15 07:51 | PROVIDER PROGRESS NOTE ---
Subjective - Prog Note Date Prog Note Date: 06/15/19 Prog Note Time: 10:26 - Subjective Subjective: he's sleepy on ativan 5 mg drip and prn dilaudid. but wakes to my voice, follows my commands. CXR shows ET tube to be above thoracic notch. Tolerating CPAP for an hour. Current Medications - Current Medications Current Medications: Active Medications Chlorhexidine Gluconate (Peridex) 15 ml PO BID ALBINO Last Admin: 06/14/19 20:41 Dose: 15 ml Enalaprilat (Vasotec Inj) 0.625 mg IVP Q6HR ALBINO Last Admin: 06/15/19 06:47 Dose: Not Given Hydromorphone HCl (Dilaudid Inj Carp) 0.5 mg IVP Q2HR PRN PRN Reason: PAIN Last Admin: 06/15/19 07:59 Dose: 0.5 mg Multivitamins 10 ml/ Thiamine HCl 100 mg/ Folic Acid 1 mg/Sodium Chloride 1,011.2 mls @ 100 mls/hr IV DAILY ALBINO Stop: 06/15/19 19:07 Last Admin: 06/14/19 09:48 Dose: 100 mls/hr Lorazepam (Ativan) 100 mls @ 0 mls/hr IV .Q0M ALBINO; Protocol Last Admin: 06/15/19 04:18 Dose: 5 mls/hr Sodium Chloride (Normal Saline 0.9%) 1,000 mls @ 75 mls/hr IV .[id number] ALBINO Last Admin: 06/15/19 06:46 Dose: 75 mls/hr Potassium Phosphate 15 mmol/ (Sodium Chloride) 255 mls @ 42.5 mls/hr IV ONCE ONE Stop: 06/15/19 13:07 Lorazepam (Ativan Inj (Vial)) 1 mg IVP Q30M PRN; Protocol PRN Reason: CIWA >8 Last Admin: 06/14/19 16:40 Dose: 1 mg Lorazepam (Ativan Inj (Vial)) 0.5 mg IVP Q2H PRN PRN Reason: Anxiety Last Admin: 06/13/19 17:14 Dose: 0.5 mg Metoprolol Tartrate (Lopressor Inj) 5 mg IVP Q6H PRN PRN Reason: Hypertensive Emergency Ondansetron HCl (Zofran Inj) 4 mg IVP Q6HR PRN PRN Reason: Nausea / Vomiting Last Admin: 06/13/19 18:23 Dose: 4 mg Pantoprazole Sodium (Protonix) 40 mg IVP BID [facility] Last Admin: 06/15/19 07:58 Dose: 40 mg Sodium Chloride (Normal Saline Flush 0.9%) 10 ml IVP PRN PRN PRN Reason: NEEDED PER PROVIDER ORDERS Last Admin: 06/13/19 15:42 Dose: 10 ml Sodium Chloride (Normal Saline Flush 0.9%) 10 ml IVP 0100,0900,1700 [facility] Last Admin: 06/15/19 07:58 Dose: 10 ml Amitriptyline [Elavil] 50 mg PO QPM 01/21/17 Lisinopril [Zestril] 20 mg PO DAILY 01/21/17 Simvastatin [Zocor] 20 mg PO DAILY 01/21/17 Aspirin Chewable [[place] Aspirin] 1 tab PO DAILY 06/12/19 Objective - Vital Signs/Intake & Output Reviewed Vital Signs: Yes Vital Signs: Vital Signs Temp Pulse Pulse Resp BP Pulse Ox 06/15/19 07:00 65 16 128/72 98 06/15/19 06:07 63 06/15/19 06:00 62 14 120/76 98 06/15/19 05:00 70 16 133/75 H 95 06/15/19 04:00 36.6 C 58 L 14 124/69 97 Intake & Output: Intake & Output 06/12/19 06/13/19 06/14/19 06/15/19 23:59 23:59 23:59 23:59 Intake Total 1035.2 3938.333 230.610 0800 Output Total 1200 7540 1550 673 Balance -164.8 -3601.667 -569.633 487 - Objective General Appearance: positive: Alert (wakes to my voice and follows commands in spite of dilaudid prn and ativan 5 mg) Eyes Bilateral: positive: PERRL, EOMI ENT: positive: Other (tongue edema much, much better, only mild and I can get a finger in his mouth. tongue is ecchymotic) Neck: positive: No JVD, Lymphadenopathy (R) (shotty), Lymphadenopathy (L) (shotty). negative: Stiff neck Respiratory: positive: Chest non-tender. negative: Wheezes, Rales, Rhonchi Cardiovascular: positive: Regular rate & rhythm, Systolic murmur. negative: Gallop/S4, Friction rub Abdomen: positive: Non-tender, No organomegaly, Nml bowel sounds, No distention Skin: positive: Warm, Dry, Diaphoresis (slight) Extremities: positive: Non-tender, No pedal edema Neurologic/Psychiatric: positive: CN's nml (2-12), Motor nml - Lab Results Fish Bones: 06/15/19 04:48 06/15/19 04:48 Other Labs: Lab Results x24hrs 06/15/19 06/15/19 06/15/19 Range/Units 05:23 04:48 04:48 WBC 10.4 (4.8-10.8) x10^3/uL RBC 3.18 L (4.70-6.10) 10^6/uL Hgb 10.1 L (14.0-18.0) g/dL Hct 31.1 L (42.0-52.0) % MCV 97.8 H (80.0-94.0) fL MCH 31.8 H (27.0-31.0) pg MCHC 32.5 (32.0-36.0) g/dL RDW 19.6 H (12.0-15.0) % Plt Count 120 L (130-450) 10^3/uL MPV 9.8 (7.4-11.4) fL Neut # (Auto) 9.5 H (1.5-6.6) 10^3/uL Lymph # (Auto) 0.3 L (1.5-3.5) 10^3/uL [place] # (Auto) 0.5 (0.0-1.0) 10^3/uL Eos # (Auto) 0.0 (0.0-0.7) 10^3/uL Baso # (Auto) 0.0 (0.0-0.1) 10^3/uL Absolute Nucleated RBC 0.00 x10^3/uL Nucleated RBC % 0.0 /100WBC Bld Gas Analysis Time 0540 Sample Site LEFT RADIAL ABG pH 7.41 (7.35-7.45) ABG pCO2 38 (34-45) mmHg ABG pO2 95 (80-100) mmHg ABG HCO3 23.6 (22.0-26.0) mmol/L ABG Total CO2 24.8 (21.0-29.0) MMOL/L ABG O2 Saturation 97 (94-98) % ABG Base Excess -0.8 (-2.0-3.0) mmol/L Brian Test POSITIVE Respiration Rate 12 b/min O2 Delivery Device VENTILATOR Vent Mode SIMV FiO2 28.00 Tidal Volume 600 mL PEEP 5 cmH2O Pressure Support Vent 10 cmH2O Sodium 140 (135-145) mmol/L Potassium 4.0 (3.5-5.0) mmol/L Chloride 107 (101-111) mmol/L Carbon Dioxide 25 (21-32) mmol/L Anion Gap 8.0 (6-13) BUN 16 (6-20) mg/dL Creatinine 0.6 (0.6-1.2) mg/dL Estimated GFR (MDRD) 140 (>89) Glucose 161 H (70-100) mg/dL Calcium 8.5 (8.5-10.3) mg/dL Phosphorus 2.4 L (2.5-4.6) mg/dL Magnesium 2.3 (1.7-2.8) mg/dL Assessment/Plan - Problem List (1) Airway obstruction Impression: Due to tongue laceration with hugely edematous tongue. He had a rapid response called on 06/13 and was found unconscious with afib to 280 and BP 160's systolic but mouth full of blood and blood on face and chest. UGI bleed as cause of symptom is now in doubt. Previous ultrasound on January 2017 showed him to have a fatty liver. No ductal dilatation. CT of the abdomen in January 2017 as well showed retroperitoneal inflammation around the tail the pancreas. I was looking for esophageal varices. None seen. EGD negative the day of bloody mouth. Tongue laceration may be from : unwitnessed seizure vs. previous bite while intoxicated vs. tongue cancer. Hgb for q6h checks remained stable. Plan: changed PPI to bid await biopsy of tongue results chlorhexidine mouth wash tongue swelling reduced so airway obstruction risk less>will extubate (2) Pancreatitis, mild, on admission. Resolved. Impression: Asymptomatic at this time but reported nausea/vomiting to the ER physician these past few days. Lipases is elevated >300 and he has been drinking alcohol on a daily basis for 4 months according to his . He drinks starting at 3 or 4 in the morning and continues all day long until he's asleep. Once he was admitted, he had no further vomitting and he wanted to eat. Did a clear liquid night of admission but was made NPO 06/13 am with blood on mouth we thought was GI bleed. He is now intubated. He does have a history of hypertriglyceridemia which may also be contributing to the pancreatitis but triglycerides are 95. Cholesterol 240, LDL 129, HDL 92. Lipase 300>122. - IV hydration - NPO until extubated. Qualifiers: Chronicity: acute Pancreatitis type: alcohol induced Acute pancreatitis complication: unspecified Qualified Code(s): K85.20 - Alcohol induced acute pancreatitis without necrosis or infection (4) Abnormal head CT Conclusion/Plan: He has prior history of a cavernoma but there is a new lesion concerning for possible hemorrhage. The CT results were discussed by the ER Physician with Neurosurgery at [facility] and a MRI was recommended. No neurologic deficits on exam. Blood pressure is stable. Unaable to do MRI while on vent. - Neurochecks especially in view of possible unwitness seizure yesterday am. - MRI brain was planned for 06/13 but with transfer to ICU may not be able to do for now. Will see if can cooperate for tomorrow - Monitor blood pressure, will aim for goal of SBP <140 given this may be a small hemorrhage. He was hypertensive yesterday but responded to ativan drip and enalapril IV - Holding chemical DVT prophylaxis (5) Alcohol abuse, continuous Conclusion/Plan: He reports daily alcohol consumption for the past month although review of prior records suggest he has been drinking alcohol for a longer period of time. confirms daily nonstop drinking for years but in the last 4 months, escalated. Alcohol level is >300 on admission. Reports no history of alcohol withdrawal. - Banana bag for 3 days then done. Today is day 4 - CIWA protocol abandoned since he's intubated and put on ativan drip - will work on reducing drip and going to CIWA - Social work consult (6) Alcoholic gastritis presumed Conclusion/Plan: He denies nausea/vomiting to admit MD but told the ER physician that he has been unable to tolerate oral intake these past few days due to nausea and vomiting. Also reports bloody stool which may be related to gastritis. Now that had blood around the mouth, I suspected alcohol gastritis vs. esophageal varices. 06/13 EGD was negative. - Will continue IV Protonix but increase to bid. - Zofran PRN - NPO for now. (7) Falls Conclusion/Plan: This may be secondary to his alcohol abuse as he stated that the falls and weakness occurred after he started drinking alcohol and that he feels fine when he is not intoxicated. Will need to rule out a neurologic cause given the findings of his CT head. No neurologic deficits on exam. - Try for MRI head when no longer on vent. - PT evaluation - Alcohol cessation (8) Transaminitis Conclusion/Plan: Secondary to alcohol abuse. AST > ALT. Hepatitis panel was negative 01/2017. Will need to refrain alcohol use. (9) HTN (hypertension) Conclusion/Plan: He was normotensive on admit and 06/13 am until he went into ICU and on vent. Needed enalapril IV and has good control now. (10) Hyperlipemia Conclusion/Plan: He has history of hypertriglyceridemia which may be playing a role in his pancreatitis. He is on a statin. Lipid panel reviewed and doing well. No high TG. - Continue statin (11) atrial fibrillation with RVR Resolved 06/13 after Cardizem 10 mg IV push, and half a bag of Procan 1 g over 1 hour. I did complete the Procan drip. Troponins have been mildly elevated. Have already peaked and started to drop. They are high-sensitivity troponins, and peaked at 250. There is no acute ST-T wave changes and I am not interpreting this is an GA.
[2019-06-15] MEDS: SODIUM CHLORIDE FLUSH 0.9% 10 ML SYRINGE IVP SCH ×2 (07:58→17:59)
[2019-06-15] MEDS: PANTOPRAZOLE 40 MG VIAL IVP SCH ×2 (07:58→21:23)
[2019-06-15] MEDS: CHLORHEXIDINE GLUCONATE 15 ML UDC PO SCH ×2 (08:10→21:19)
[2019-06-15] MEDS: MULTIVITAMIN 10 ML, THIAMINE INJ 100 MG, FOLIC ACID INJ 1 MG in SODIUM CHLORIDE 0.9% 1,... IV SCH (09:23)
--- NOTE | 2019-06-15 10:04 | XRAY Report ---
Reason: daily while on vent Procedure Date: 06/15/2019 Accession Number: [id number] / [id number] Procedure: XR - Chest 1 View X-Ray CPT Code: 81053 FULL RESULT: EXAM: CHEST RADIOGRAPHY EXAM DATE: 06/15/2019 09:23 AM. CLINICAL HISTORY: Daily while on ventilator. Congestive heart failure. COMPARISON: CHEST 1 VIEW 06/14/2019 10:02 AM. TECHNIQUE: 1 view. FINDINGS: Lungs/Pleura: No lobar consolidation, overt pulmonary edema, pneumothorax or sizable pleural effusion. Mediastinum: Cardiomediastinal silhouette is stable, within the upper limits of normal for this type of technique. Other: The endotracheal tube terminates above the thoracic inlet, approximately 10.7 cm above the nava, advanced 4-5 cm for improved positioning. Tube terminates with tip and sidehole below the diaphragm. IMPRESSION: Malpositioning of endotracheal tube, recommend consideration for advancement, 4-5 cm. CORTNEY The call report notification system was initiated by Dr. Mandeep Higuera at 10:01 AM on 06/15/2019. ADDENDUM: 06/15/19 10:22 The above call report findings were discussed with Mayra Christina by Dr. Mandeep Higuera at 10:22 AM on 06/15/2019.
[2019-06-15] MEDS: NICOTINE 14 MG PATCH TOP SCH (16:43)
[2019-06-15] MEDS ORDERED: SODIUM CHLORIDE INHALATION 3 ML NEB ONE (18:15)
[2019-06-15] MEDS: LORazepam 2 MG/ML VIAL IVP PRN (22:08)
[2019-06-16] MEDS: ENALAPRILAT 1.25 MG/ML VIAL IVP SCH ×4 (00:24→17:48)
[2019-06-16] MEDS: LORazepam 2 MG/ML VIAL IVP PRN ×3 (00:24→21:52)
[2019-06-16] MEDS: SODIUM CHLORIDE FLUSH 0.9% 10 ML SYRINGE IVP SCH ×4 (03:12→21:49)
[2019-06-16] MEDS: POLYETHYLENE GLYCOL 3350 17 GM PACKET PO SCH (08:14)
[2019-06-16] MEDS: PANTOPRAZOLE 40 MG VIAL IVP SCH ×2 (08:14→21:48)
[2019-06-16] MEDS: NICOTINE 14 MG PATCH TOP SCH (08:15)
[2019-06-16] MEDS: CHLORHEXIDINE GLUCONATE 15 ML UDC PO SCH ×2 (08:15→21:49)
[2019-06-16] MEDS: SODIUM CHLORIDE 0.9% 1,000 ML IV SCH (08:17)
[2019-06-16] MEDS ORDERED: SODIUM CHLORIDE 0.9% 1,000 ML IV SCH (09:53)
--- NOTE | 2019-06-16 10:33 | PROVIDER PROGRESS NOTE ---
Assessment/Plan - Problem List (1) Airway obstruction Assessment/Plan: He needed to be intubated to protect his airway from blood. He was extubated yesterday afternoon. Plan to have him remain in ICU, watching for recurrence of obstruction (and management of alcoholism). (2) Tongue biting Assessment/Plan: The blood in mouth was from trauma to tongue. There was a bipsy done during the EGD of a white plaque on the tongue, results are still pemding. He remains on Decadron to promote tongue healing and lessen the swelling. Dietary recommended a soft rather than a regular diet. Peridex oral care continues as well. (3) Alcohol withdrawal Assessment/Plan: He required an Ativan drip for alcohol withdrawal and sedation while on ventilator. He was extubated yesterday aftrenoon. The CIWA protocol remains in place using boluses of iv Ativan if needed. (4) Alcohol abuse Assessment/Plan: Transaminitis has improved. His INR and plts are not abnormal. Since he is extubated and eating, will order daily vitamins and Thiamine supplement orally daily. PT ordered to start. (5) Subarachnoid hemorrhage Assessment/Plan: The abnormal head CT was suggestive of a small cerebral bleed. The ER reached out to neurology at [facility] with this resukt and a brain MRI was advised. The MRI does show multifocal, small hemorrhages, consistent with prior trauma, per the [facility] radiologist who spoke to me. The patient does have history of falls which were presumed to be from affects of alcohol intoxication. His neuro exam was non-focal, then he was sedated while on a ventilator yesterday. Today, his mentation and movements are "slow", which the family confirms is not his normal. Will continue to avoid anti-platelet agents and anti-coagulants. I will reach out to the neurologists at [facility] with these findings for any other recommendations. (6) Subdural hemorrhage Assessment/Plan: As in #6 (7) Falls Assessment/Plan: These were felt to be related to alcohol abuse, since he hadd reported that he had no problems when not intoxicated. Will assess orthostatic VS. Will start PT. (8) Pancreatitis Assessment/Plan: The Lipase destiny slightly, but no c/o abdominal pain or N/V. he is tolerating a diet. Monitor Lipase daily. (9) Hypokalemia Assessment/Plan: related to poor nutritional intake and current hemodilution. Replace. Follow BMP daily. (10) Macrocytic anemia Assessment/Plan: Likely related to B12 and Folate deiciencY associated with alcohol abuse. Will start oral supplements. (11) Tobacco dependence Assessment/Plan: Will order a Nicotine patch - Current Meds Current Meds: Current Medications Generic Name Dose Route Start Last Admin Trade Name Freq PRN Reason Stop Dose Admin Chlorhexidine Gluconate 15 ml 06/14/19 21:00 06/16/19 08:15 Peridex PO Not Given BID ALBINO Enalaprilat 0.625 mg 06/15/19 00:00 06/16/19 06:16 Vasotec Inj IVP 0.625 mg Q6HR ALBINO Administration Hydromorphone HCl 0.5 mg 06/13/19 12:51 06/15/19 07:59 Dilaudid Inj Carp IVP 0.5 mg Q2HR PRN Administration PAIN Lorazepam 1 mg 06/12/19 23:42 06/16/19 03:10 Ativan Inj (Vial) IVP 2 mg Q30M PRN Administration CIWA >8 Protocol Lorazepam 0.5 mg 06/13/19 09:12 06/15/19 22:08 Ativan Inj (Vial) IVP 0.5 mg Q2H PRN Administration Anxiety Nicotine 1 patch 06/15/19 09:00 06/16/19 08:15 Nicoderm TOP 1 patch DAILY ALBINO Administration Ondansetron HCl 4 mg 06/12/19 23:42 06/13/19 18:23 Zofran Inj IVP 4 mg Q6HR PRN Administration Nausea / Vomiting Pantoprazole Sodium 40 mg 06/13/19 09:00 06/16/19 08:14 Protonix IVP 40 mg BID ALBINO Administration Polyethylene Glycol 17 gm 06/16/19 09:00 06/16/19 08:14 Miralax PO 17 gm DAILY ALBINO Administration Sodium Chloride 10 ml 06/12/19 23:42 06/13/19 15:42 Normal Saline Flush 0.9% IVP 10 ml PRN PRN Administration NEEDED PER PROVIDER ORDERS Sodium Chloride 10 ml 06/13/19 01:00 06/16/19 08:14 Normal Saline Flush 0.9% IVP 10 ml 0100,0900,1700 ALBINO Administration - Lab Result Fish Bone Diagrams: 06/16/19 10:35 06/16/19 10:35 - Additional Planning My Orders: My Active Orders 06/16/19 CBC - COMP BLD CT W/AUTO DIFF [HEME] Routine CMP [COMPREHENSIVE METABOLIC PANEL] [CHEM] Routine LIPASE [CHEM] Routine PHOSPHORUS [CHEM] Routine PT WITH INR [COAG] Routine Evaluate and Treat PT [PT] Routine 06/16/19 09:53 Sodium Chloride 0.9% [Normal Saline 0.9%] 1,000 ml IV 30 mls/hr 06/16/19 12:00 Vitamin [Trinatal Rx 1] 1 tab PO DAILYWM Thiamine [Vitamin B-1] 100 mg PO DAILY 06/17/19 05:00 BMP - BASIC METABOLIC PANEL [CHEM] DAILYLAB CBC - COMP BLD CT W/AUTO DIFF [HEME] DAILYLAB 06/18/19 05:00 BMP - BASIC METABOLIC PANEL [CHEM] DAILYLAB CBC - COMP BLD CT W/AUTO DIFF [HEME] DAILYLAB 06/19/19 05:00 BMP - BASIC METABOLIC PANEL [CHEM] DAILYLAB CBC - COMP BLD CT W/AUTO DIFF [HEME] DAILYLAB Subjective - Subjective Patient Reports: Resting Comfortably, Other (Sleeping after family visited) Nursing Reports: Other (Still scoring on CIWA, last Ativan dose was last night.) Objective Vital Signs: Vital Signs - 24 hr 06/15/19 06/15/19 06/15/19 11:00 12:00 12:05 Temperature 37.4 C Heart Rate [ 59 L 71 79 Brachial] Respiratory 12 19 Rate Blood Pressure 129/75 126/79 143/83 H [Left Brachial artery] O2 Saturation 96 96 06/15/19 06/15/19 06/15/19 12:10 12:15 12:30 Temperature Heart Rate [ 87 89 59 L Brachial] Respiratory Rate Blood Pressure 128/80 143/73 H 114/69 [Left Brachial artery] O2 Saturation 06/15/19 06/15/19 06/15/19 12:45 13:00 14:00 Temperature Heart Rate [ 95 76 87 Brachial] Respiratory 18 24 Rate Blood Pressure 137/71 H 142/77 H 161/80 H [Left Brachial artery] O2 Saturation 95 98 06/15/19 06/15/19 06/15/19 15:00 16:00 17:00 Temperature 37.0 C Heart Rate [ 65 58 L 81 Brachial] Respiratory 19 16 15 Rate Blood Pressure 147/90 H 151/93 H 160/97 H [Left Brachial artery] O2 Saturation 97 96 96 06/15/19 06/15/19 06/15/19 18:03 18:10 18:15 Temperature Heart Rate [ 54 L 57 L 59 L Brachial] Respiratory Rate Blood Pressure 140/71 H 142/81 H 141/83 H [Left Brachial artery] O2 Saturation 06/15/19 06/15/19 06/15/19 18:34 18:48 19:00 Temperature 37.7 C H Heart Rate [ 79 65 89 Brachial] Respiratory 27 H Rate Blood Pressure 157/86 H 130/78 145/84 H [Left Brachial artery] O2 Saturation 98 06/15/19 06/15/19 06/15/19 20:00 21:00 22:00 Temperature Heart Rate [ 102 H 64 78 Brachial] Respiratory 20 20 20 Rate Blood Pressure 170/92 H 129/74 153/93 H [Left Brachial artery] O2 Saturation 96 96 96 06/15/19 06/16/19 06/16/19 23:00 00:00 01:00 Temperature 36.6 C Heart Rate [ 64 102 H 75 Brachial] Respiratory 17 22 22 Rate Blood Pressure 125/75 171/94 H 135/74 H [Left Brachial artery] O2 Saturation 95 96 94 06/16/19 06/16/19 06/16/19 02:00 03:00 04:00 Temperature Heart Rate [ 56 L 78 69 Brachial] Respiratory 20 12 24 Rate Blood Pressure 111/70 175/96 H 138/81 H [Left Brachial artery] O2 Saturation 96 96 93 06/16/19 06/16/19 06/16/19 05:00 06:00 07:00 Temperature 37.1 C Heart Rate [ 59 L 79 78 Brachial] Respiratory 21 22 21 Rate Blood Pressure 125/72 165/93 H 163/81 H [Left Brachial artery] O2 Saturation 95 94 95 06/16/19 06/16/19 06/16/19 08:00 09:00 10:00 Temperature 37 C Heart Rate [ 94 100 70 Brachial] Respiratory 24 23 21 Rate Blood Pressure 135/94 H 132/94 H 123/88 H [Left Brachial artery] O2 Saturation 95 100 94 Oxygen O2 Source Room air I&O (Last 24 Hrs): Intake and Output Totals x24h 06/14/19 06/15/19 06/16/19 23:59 23:59 23:59 Intake Total 1705.315 6871.250 1963.75 Output Total 7759 9190 5590 Balance 441.567 -1126.750 198.75 General: Other (sleepy) HEENT: Other (Sita is mildly thiskned) Neck: Supple Neuro: Other (Sleepy, but was able to walk with PT ollowing commands, spoke to his RN with slow speech) Cardiovascular: Regular rate, No murmurs Respiratory: No respiratory distress Abdomen: Soft Extremities: No edema - Results Results: Laboratory Results WBC 10.4 x10^3/uL (4.8-10.8) 06/15/19 04:48 RBC 3.18 10^6/uL (4.70-6.10) L 06/15/19 04:48 Hgb 10.1 g/dL (14.0-18.0) L 06/15/19 04:48 Hct 31.1 % (42.0-52.0) L 06/15/19 04:48 MCV 97.8 fL (80.0-94.0) H 06/15/19 04:48 MCH 31.8 pg (27.0-31.0) H 06/15/19 04:48 MCHC 32.5 g/dL (32.0-36.0) 06/15/19 04:48 RDW 19.6 % (12.0-15.0) H 06/15/19 04:48 Plt Count 120 10^3/uL (130-450) L 06/15/19 04:48 MPV 9.8 fL (7.4-11.4) 06/15/19 04:48 Neut # (Auto) 9.5 10^3/uL (1.5-6.6) H 06/15/19 04:48 Lymph # (Auto) 0.3 10^3/uL (1.5-3.5) L 06/15/19 04:48 [place] # (Auto) 0.5 10^3/uL (0.0-1.0) 06/15/19 04:48 Eos # (Auto) 0.0 10^3/uL (0.0-0.7) 06/15/19 04:48 Baso # (Auto) 0.0 10^3/uL (0.0-0.1) 06/15/19 04:48 Absolute Nucleated RBC 0.00 x10^3/uL 06/15/19 04:48 Nucleated RBC % 0.0 /100WBC 06/15/19 04:48 Manual Slide Review Indicated 06/13/19 07:45 Platelet Estimate NORMAL (130-450,000) (NORMAL) 06/12/19 20:21 Platelet Morphology NORMAL APPEARANCE (NORMAL) 06/12/19 20:21 RBC Morph Micro Appear 2+ ANISOCYTOSIS (NORMAL) 1+ MICROCYTOSIS (NORMAL) 1+ HYPOCHROMASIA (NORMAL) 06/12/19 20:21 RBC Morph Micro Appear 2+ ANISOCYTOSIS (NORMAL) 1+ MICROCYTOSIS (NORMAL) 1+ HYPOCHROMASIA (NORMAL) 06/12/19 20:21 RBC Morph Micro Appear 1+ ANISOCYTOSIS (NORMAL) 06/13/19 07:45 PT 11.3 secs (9.9-12.6) 06/12/19 22:00 INR 1.0 (0.8-1.2) 06/12/19 22:00 Bld Gas Analysis Time 0540 06/15/19 05:23 Sample Site LEFT RADIAL 06/15/19 05:23 ABG pH 7.41 (7.35-7.45) 06/15/19 05:23 ABG pCO2 38 mmHg (34-45) 06/15/19 05:23 ABG pO2 95 mmHg (80-100) 06/15/19 05:23 ABG HCO3 23.6 mmol/L (22.0-26.0) 06/15/19 05:23 ABG Total CO2 24.8 MMOL/L (21.0-29.0) 06/15/19 05:23 ABG O2 Saturation 97 % (94-98) 06/15/19 05:23 ABG Base Excess -0.8 mmol/L (-2.0-3.0) 06/15/19 05:23 Brian Test POSITIVE 06/15/19 05:23 Respiration Rate 12 b/min 06/15/19 05:23 O2 Delivery Device VENTILATOR 06/15/19 05:23 Vent Mode SIMV 06/15/19 05:23 FiO2 28.00 06/15/19 05:23 Tidal Volume 600 mL 06/15/19 05:23 PEEP 5 cmH2O 06/15/19 05:23 Pressure Support Vent 10 cmH2O 06/15/19 05:23 Sodium 140 mmol/L (135-145) 06/15/19 04:48 Potassium 4.0 mmol/L (3.5-5.0) 06/15/19 04:48 Chloride 107 mmol/L (101-111) 06/15/19 04:48 Carbon Dioxide 25 mmol/L (21-32) 06/15/19 04:48 Anion Gap 8.0 (6-13) 06/15/19 04:48 BUN 16 mg/dL (6-20) 06/15/19 04:48 Creatinine 0.6 mg/dL (0.6-1.2) 06/15/19 04:48 Estimated GFR (MDRD) 140 (>89) 06/15/19 04:48 Glucose 161 mg/dL (70-100) H 06/15/19 04:48 Calcium 8.5 mg/dL (8.5-10.3) 06/15/19 04:48 Phosphorus 2.4 mg/dL (2.5-4.6) L 06/15/19 04:48 Magnesium 2.3 mg/dL (1.7-2.8) 06/15/19 04:48 Total Bilirubin 0.4 mg/dL (0.2-1.0) 06/12/19 20:21 AST 71 IU/L (10-42) H 06/12/19 20:21 ALT 35 IU/L (10-60) 06/12/19 20:21 Alkaline Phosphatase 92 IU/L (42-121) 06/12/19 20:21 Troponin I High Sens 252.7 pg/mL (2.3-19.7) H* 06/14/19 05:05 Total Protein 7.5 g/dL (6.7-8.2) 06/12/19 20:21 Albumin 3.7 g/dL (3.2-5.5) 06/12/19 20:21 Globulin 3.8 g/dL (2.1-4.2) 06/12/19 20:21 Albumin/Globulin Ratio 1.0 (1.0-2.2) 06/12/19 20:21 Triglycerides 95 mg/dL (-149) 06/13/19 00:15 Cholesterol 240 mg/dL (-199) H 06/13/19 00:15 LDL Cholesterol, Calc 129 mg/dL (-129) 06/13/19 00:15 VLDL Cholesterol 19 mg/dL 06/13/19 00:15 HDL Cholesterol 92 mg/dL (60-) 06/13/19 00:15 LDL/HDL Ratio 1.4 (<3.6) 06/13/19 00:15 Cholesterol/HDL Ratio 2.6 (<5.0) 06/13/19 00:15 Lipase 122 U/L (22-51) H 06/14/19 05:05 Urine Color YELLOW 06/12/19 20:47 Urine Clarity CLEAR (CLEAR) 06/12/19 20:47 Urine pH 6.5 PH (5.0-7.5) 06/12/19 20:47 Ur Specific [place] <=1.005 (1.002-1.030) 06/12/19 20:47 Urine Protein NEGATIVE mg/dL (NEGATIVE) 06/12/19 20:47 Urine Glucose (UA) NEGATIVE mg/dL (NEGATIVE) 06/12/19 20:47 Urine Ketones NEGATIVE mg/dL (NEGATIVE) 06/12/19 20:47 Urine Occult Blood NEGATIVE (NEGATIVE) 06/12/19 20:47 Urine Nitrite NEGATIVE (NEGATIVE) 06/12/19 20:47 Urine Bilirubin NEGATIVE (NEGATIVE) 06/12/19 20:47 Urine Urobilinogen 0.2 (NORMAL) E.U./dL (NORMAL) 06/12/19 20:47 Ur Leukocyte Esterase NEGATIVE (NEGATIVE) 06/12/19 20:47 Ur Microscopic Review NOT INDICATED 06/12/19 20:47 Urine Culture Comments NOT INDICATED 06/12/19 20:47 Nasal Screen MRSA (PCR) NEGATIVE (NEGATIVE) 06/15/19 08:40 Stl Occult Blood (IFOB) POSITIVE (NEGATIVE) A 06/13/19 01:59 Ethyl Alcohol 382.8 mg/dL 06/12/19 20:21 Blood Type O POSITIVE 06/13/19 07:45 Antibody Screen NEGATIVE 06/13/19 07:45 - Procedures Procedures: Procedures PARTIAL SHOULDER REPLACEMENT (04/28/13)
[2019-06-16 10:55] LABS: BASOPHILS # (AUTO) 0.1 10^3/uL (0.0-0.1); BASOPHILS % (AUTO) 0.7 %; EOSINOPHILS % (AUTO) 0.3 %; HGB - HEMOGLOBIN 11.4 g/dL (14.0-18.0); LYMPHOCYTES # (AUTO) 1.2 10^3/uL (1.5-3.5); LYMPHOCYTES % (AUTO) 16.1 %; MEAN CORPUSCULAR HEMOGLOBIN 31.7 pg (27.0-31.0); MEAN CORPUSCULAR HGB CONC 31.5 g/dL (32.0-36.0); MEAN CORPUSCULAR VOLUME 100.6 fL (80.0-94.0); MEAN PLATELET VOLUME 10.5 fL (7.4-11.4); MONOCYTES # (AUTO) 0.7 10^3/uL (0.0-1.0); MONOCYTES % (AUTO) 8.8 %; NEUTROPHILS # (AUTO) 5.4 10^3/uL (1.5-6.6); NEUTROPHILS % (AUTO) 73.3 %; PLT - PLATELET COUNT 144 10^3/uL (130-450); RED CELL DISTRIBUTION WIDTH 18.9 % (12.0-15.0); WHITE BLOOD COUNT 7.4 x10^3/uL (4.8-10.8)
[2019-06-16 11:04] LABS: INR 1.1 (0.8-1.2); PT - PROTHROMBIN TIME 12.7 secs (9.9-12.6)
[2019-06-16 11:10] LABS: ALBUMIN 3.6 g/dL (3.2-5.5); CREATININE 0.7 mg/dL (0.6-1.2); PHOSPHORUS 2.1 mg/dL (2.5-4.6); TOTAL PROTEIN 7.2 g/dL (6.7-8.2)
[2019-06-16] MEDS: THIAMINE 100 MG TABLET PO SCH (13:08)
[2019-06-16] MEDS: PRENATAL VITAMIN TABLET PO SCH (13:08)
--- NOTE | 2019-06-16 13:54 | MRI Report ---
Reason: F/U CT Procedure Date: 06/16/2019 Accession Number: [id number] / [id number] Procedure: MRI - Brain W/O CPT Code: FULL RESULT: EXAM: MRI BRAIN WITHOUT CONTRAST EXAM DATE: 06/16/2019 12:40 PM. CLINICAL HISTORY: Recent fall with head injury, pain and altered level of consciousness. COMPARISON: MRI/MRA BRAIN 11/24/2012 3:08 PM HEAD W/O 06/12/2019 8:53 PM. TECHNIQUE: Multiplanar, multisequence T1-weighted and fluid-sensitive MR sequences of the brain were performed. Sequences optimized for routine evaluation. Other: None. IV Contrast: None. FINDINGS: There is a small region of abnormal nodular and curvilinear T2 FLAIR hyperintensity with diffusion hyperintensity along the medial aspect of the right frontal lobe adjacent to the interhemispheric fissure, adjacent to the cingulate gyrus. The imaging findings are nonspecific but favor subacute subarachnoid hemorrhage. Purulent material is less likely. This extends anterior to posterior up to about 4 cm. The largest focus of T2 FLAIR hyperintensity on image 18 of series 501 measures about 9 x 6 mm. No adverse mass effect on the brain. The signal abnormality probably extends laterally into the right cingulate sulcus. No definite brain edema. Probable trace residual subarachnoid blood in the left Sylvian fissure where density was increased on recent head CT. There is a very small amount of abnormal T2 FLAIR hyperintensity/T1 hyperintensity that is probably subacute subdural blood along the medial aspect of the right occipital lobe, 1 to 2 mm maximum thickness. This is also diffusion hyperintense, given history, more likely blood products than purulent material. Similar findings of thin T1 hyperintensity up to 1 to 2 mm in thickness are also seen along the inferior margin of the right middle cranial fossa, also consistent with a trace of subacute subdural hemorrhage. Stable findings most consistent with chronic cavernous malformation in the region of the posterior limb of left internal capsule. Mild diffuse brain volume loss consistent with atrophy. There are findings of mild multifocal nonspecific white matter disease that may be attributable to aging and chronic microangiopathy. No parenchymal restricted diffusion to suggest acute or recent ischemic infarct. Potentially chronic left maxillary sinus mucosal thickening. IMPRESSION: 1. Residual small volume multifocal subarachnoid hemorrhage, most evident in the region of the right cingulate sulcus and left Sylvian fissure. 2. Probable very small volume of subacute subdural hemorrhage along the medial margin of the right occipital lobe and along the right middle fossa floor. 3. Stable findings consistent with left deep brain cavernous malformation. 4. Compare to prior MRI, mildly progressive generalized senescent changes. [facility] The call report notification system was initiated by Dr. Chase Pedraza at 01:52 PM on 06/16/2019. ADDENDUM: 06/16/19 14:06 The above call report findings were discussed with Debbie Titus by Dr. Chase Pedraza at 02:06 PM on 06/16/2019.
[2019-06-17] MEDS: SODIUM CHLORIDE FLUSH 0.9% 10 ML SYRINGE IVP SCH ×2 (00:16→17:05)
[2019-06-17] MEDS: ENALAPRILAT 1.25 MG/ML VIAL IVP SCH ×2 (00:16→06:34)
[2019-06-17 05:30] LABS: BASOPHILS # (AUTO) 0.1 10^3/uL (0.0-0.1); BASOPHILS % (AUTO) 0.8 %; EOSINOPHILS # (AUTO) 0.1 10^3/uL (0.0-0.7); EOSINOPHILS % (AUTO) 0.5 %; HGB - HEMOGLOBIN 11.8 g/dL (14.0-18.0); LYMPHOCYTES # (AUTO) 1.4 10^3/uL (1.5-3.5); LYMPHOCYTES % (AUTO) 15.1 %; MEAN CORPUSCULAR HEMOGLOBIN 31.5 pg (27.0-31.0); MEAN CORPUSCULAR HGB CONC 32.9 g/dL (32.0-36.0); MEAN CORPUSCULAR VOLUME 95.7 fL (80.0-94.0); MEAN PLATELET VOLUME 10.7 fL (7.4-11.4); NEUTROPHILS # (AUTO) 6.6 10^3/uL (1.5-6.6); NEUTROPHILS % (AUTO) 71.6 %; PLT - PLATELET COUNT 174 10^3/uL (130-450); RED BLOOD COUNT 3.75 10^6/uL (4.70-6.10); RED CELL DISTRIBUTION WIDTH 18.6 % (12.0-15.0); WHITE BLOOD COUNT 9.2 x10^3/uL (4.8-10.8)
[2019-06-17 05:36] LABS: CALCIUM 8.8 mg/dL (8.5-10.3); CREATININE 0.6 mg/dL (0.6-1.2)
[2019-06-17] MEDS: PRENATAL VITAMIN TABLET PO SCH (08:46)
[2019-06-17] MEDS: NICOTINE 14 MG PATCH TOP SCH (08:48)
[2019-06-17] MEDS: PANTOPRAZOLE 40 MG VIAL IVP SCH ×2 (08:48→21:15)
[2019-06-17] MEDS: THIAMINE 100 MG TABLET PO SCH (08:48)
[2019-06-17] MEDS: CHLORHEXIDINE GLUCONATE 15 ML UDC PO SCH ×2 (08:54→21:15)
--- NOTE | 2019-06-17 08:57 | PROVIDER PROGRESS NOTE ---
Assessment/Plan - Problem List (9) Hypokalemia Assessment/Plan: Related to poor nutritional intake. Replace and follow BMP daily. 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 Here, he has a good appetite, per family, but is occasionally too weak to feed himself. - Current Meds Current Meds: Current Medications Generic Name Dose Route Start Last Admin Trade Name Freq PRN Reason Stop Dose Admin Chlorhexidine Gluconate 15 ml 06/14/19 21:00 06/17/19 08:54 Peridex PO 15 ml BID ALBINO Administration Enalaprilat 0.625 mg 06/15/19 00:00 06/17/19 06:34 Vasotec Inj IVP 0.625 mg Q6HR ALBINO Administration Hydromorphone HCl 0.5 mg 06/13/19 12:51 06/15/19 07:59 Dilaudid Inj Carp IVP 0.5 mg Q2HR PRN Administration PAIN Lorazepam 1 mg 06/12/19 23:42 06/16/19 03:10 Ativan Inj (Vial) IVP 2 mg Q30M PRN Administration CIWA >8 Protocol Lorazepam 0.5 mg 06/13/19 09:12 06/16/19 21:52 Ativan Inj (Vial) IVP 0.5 mg Q2H PRN Administration Anxiety Nicotine 1 patch 06/15/19 09:00 06/17/19 08:48 Nicoderm TOP 1 patch DAILY ALBINO Administration Ondansetron HCl 4 mg 06/12/19 23:42 06/13/19 18:23 Zofran Inj IVP 4 mg Q6HR PRN Administration Nausea / Vomiting Pantoprazole Sodium 40 mg 06/13/19 09:00 06/17/19 08:48 Protonix IVP 40 mg BID ALBINO Administration Polyethylene Glycol 17 gm 06/16/19 09:00 06/16/19 08:14 Miralax PO 17 gm DAILY ALBINO Administration Multivit/Folic Acid/Iron 1 tab 06/16/19 12:00 06/17/19 08:46 Trinatal Rx 1 PO 1 tab DAILYWM ALBINO Administration Sodium Chloride 10 ml 06/12/19 23:42 06/13/19 15:42 Normal Saline Flush 0.9% IVP 10 ml PRN PRN Administration NEEDED PER PROVIDER ORDERS Sodium Chloride 10 ml 06/13/19 01:00 06/17/19 00:16 Normal Saline Flush 0.9% IVP 10 ml 0100,0900,1700 ALBINO Administration Thiamine HCl 100 mg 06/16/19 12:00 06/17/19 08:48 Vitamin B-1 PO 100 mg DAILY ALBINO Administration - Lab Result Fish Bone Diagrams: 06/17/19 04:45 06/17/19 04:45 - Additional Planning My Orders: My Active Orders 06/16/19 12:00 Vitamin [Trinatal Rx 1] 1 tab PO DAILYWM Thiamine [Vitamin B-1] 100 mg PO DAILY 06/16/19 14:16 Postural [Vital Signs - Orthostatic] [RC] DAILY 06/16/19 Dinner DIET [Soft Mechanical Diet] [DIET] 06/18/19 05:00 BMP - BASIC METABOLIC PANEL [CHEM] DAILYLAB CBC - COMP BLD CT W/AUTO DIFF [HEME] DAILYLAB 06/19/19 05:00 BMP - BASIC METABOLIC PANEL [CHEM] DAILYLAB CBC - COMP BLD CT W/AUTO DIFF [HEME] DAILYLAB Objective Vital Signs: Vital Signs - 24 hr 06/16/19 06/16/19 06/16/19 09:00 10:00 11:00 Temperature Heart Rate [ Activity] Heart Rate [ 100 70 65 Brachial] Heart Rate [ Sitting (After 1 Minute)] Heart Rate [ Standing (After 1 Minute)] Heart Rate [ Supine] Respiratory 23 21 19 Rate Blood Pressure [Activity] Blood Pressure 132/94 H 123/88 H 127/80 [Left Brachial artery] Blood Pressure [Sitting (After 1 Minute)] Blood Pressure [Standing ( After 1 Minute) ] Blood Pressure [Supine] O2 Saturation 100 94 97 06/16/19 06/16/19 06/16/19 12:00 13:00 13:13 Temperature 36.9 C Heart Rate [ 95 Activity] Heart Rate [ 81 98 89 Brachial] Heart Rate [ Sitting (After 1 Minute)] Heart Rate [ Standing (After 1 Minute)] Heart Rate [ 102 H Supine] Respiratory 16 20 Rate Blood Pressure 151/91 H [Activity] Blood Pressure 150/95 H 151/94 H 145/105 H [Left Brachial artery] Blood Pressure [Sitting (After 1 Minute)] Blood Pressure [Standing ( After 1 Minute) ] Blood Pressure 132/85 H [Supine] O2 Saturation 97 97 06/16/19 06/16/19 06/16/19 13:18 13:23 13:30 Temperature Heart Rate [ Activity] Heart Rate [ 90 93 94 Brachial] Heart Rate [ Sitting (After 1 Minute)] Heart Rate [ Standing (After 1 Minute)] Heart Rate [ Supine] Respiratory Rate Blood Pressure [Activity] Blood Pressure 155/119 H 141/94 H 166/104 H [Left Brachial artery] Blood Pressure [Sitting (After 1 Minute)] Blood Pressure [Standing ( After 1 Minute) ] Blood Pressure [Supine] O2 Saturation 06/16/19 06/16/19 06/16/19 13:45 14:00 15:00 Temperature Heart Rate [ Activity] Heart Rate [ 95 95 63 Brachial] Heart Rate [ Sitting (After 1 Minute)] Heart Rate [ Standing (After 1 Minute)] Heart Rate [ Supine] Respiratory 20 17 Rate Blood Pressure [Activity] Blood Pressure 140/100 H 127/87 H 118/80 [Left Brachial artery] Blood Pressure [Sitting (After 1 Minute)] Blood Pressure [Standing ( After 1 Minute) ] Blood Pressure [Supine] O2 Saturation 98 97 06/16/19 06/16/19 06/16/19 16:00 16:55 17:53 Temperature 37.2 C Heart Rate [ Activity] Heart Rate [ 65 103 H Brachial] Heart Rate [ 98 Sitting (After 1 Minute)] Heart Rate [ 99 Standing (After 1 Minute)] Heart Rate [ 83 Supine] Respiratory 21 Rate Blood Pressure [Activity] Blood Pressure 120/76 129/80 [Left Brachial artery] Blood Pressure 155/86 H [Sitting (After 1 Minute)] Blood Pressure 148/98 H [Standing ( After 1 Minute) ] Blood Pressure 138/88 H [Supine] O2 Saturation 100 06/16/19 06/16/19 06/16/19 17:58 18:03 18:15 Temperature Heart Rate [ Activity] Heart Rate [ 109 H 94 91 Brachial] Heart Rate [ Sitting (After 1 Minute)] Heart Rate [ Standing (After 1 Minute)] Heart Rate [ Supine] Respiratory 22 Rate Blood Pressure [Activity] Blood Pressure 144/83 H 149/92 H 129/82 H [Left Brachial artery] Blood Pressure [Sitting (After 1 Minute)] Blood Pressure [Standing ( After 1 Minute) ] Blood Pressure [Supine] O2 Saturation 100 06/16/19 06/16/19 06/16/19 18:30 18:45 19:00 Temperature Heart Rate [ Activity] Heart Rate [ 83 89 82 Brachial] Heart Rate [ Sitting (After 1 Minute)] Heart Rate [ Standing (After 1 Minute)] Heart Rate [ Supine] Respiratory 30 H Rate Blood Pressure [Activity] Blood Pressure 122/77 135/74 H 121/85 H [Left Brachial artery] Blood Pressure [Sitting (After 1 Minute)] Blood Pressure [Standing ( After 1 Minute) ] Blood Pressure [Supine] O2 Saturation 97 06/16/19 06/16/19 06/17/19 20:00 21:00 00:00 Temperature Heart Rate [ Activity] Heart Rate [ 106 H 91 90 Brachial] Heart Rate [ Sitting (After 1 Minute)] Heart Rate [ Standing (After 1 Minute)] Heart Rate [ Supine] Respiratory 28 H 21 22 Rate Blood Pressure [Activity] Blood Pressure 142/85 H 158/90 H 123/83 H [Left Brachial artery] Blood Pressure [Sitting (After 1 Minute)] Blood Pressure [Standing ( After 1 Minute) ] Blood Pressure [Supine] O2 Saturation 96 96 96 06/17/19 06/17/19 06/17/19 01:00 02:00 03:00 Temperature Heart Rate [ Activity] Heart Rate [ 75 65 79 Brachial] Heart Rate [ Sitting (After 1 Minute)] Heart Rate [ Standing (After 1 Minute)] Heart Rate [ Supine] Respiratory 23 27 H 21 Rate Blood Pressure [Activity] Blood Pressure 155/95 H 156/85 H 147/92 H [Left Brachial artery] Blood Pressure [Sitting (After 1 Minute)] Blood Pressure [Standing ( After 1 Minute) ] Blood Pressure [Supine] O2 Saturation 96 96 96 06/17/19 06/17/19 06/17/19 04:00 05:00 06:00 Temperature 36.7 C 37.4 C Heart Rate [ Activity] Heart Rate [ 78 88 78 Brachial] Heart Rate [ Sitting (After 1 Minute)] Heart Rate [ Standing (After 1 Minute)] Heart Rate [ Supine] Respiratory 16 26 H 26 H Rate Blood Pressure [Activity] Blood Pressure 156/84 H 148/92 H 162/98 H [Left Brachial artery] Blood Pressure [Sitting (After 1 Minute)] Blood Pressure [Standing ( After 1 Minute) ] Blood Pressure [Supine] O2 Saturation 99 96 97 06/17/19 06/17/19 07:00 08:00 Temperature 37.2 C Heart Rate [ Activity] Heart Rate [ 66 70 Brachial] Heart Rate [ Sitting (After 1 Minute)] Heart Rate [ Standing (After 1 Minute)] Heart Rate [ Supine] Respiratory 21 22 Rate Blood Pressure [Activity] Blood Pressure 126/62 114/66 [Left Brachial artery] Blood Pressure [Sitting (After 1 Minute)] Blood Pressure [Standing ( After 1 Minute) ] Blood Pressure [Supine] O2 Saturation 97 96 Oxygen O2 Source Room air I&O (Last 24 Hrs): Intake and Output Totals x24h 06/15/19 06/16/19 06/17/19 23:59 23:59 23:59 Intake Total 3542.450 3663.75 Output Total 3658 2565 1125 Balance -487.574 5296.75 -1125 - Results Results: Laboratory Results WBC 9.2 x10^3/uL (4.8-10.8) 06/17/19 04:45 RBC 3.75 10^6/uL (4.70-6.10) L 06/17/19 04:45 Hgb 11.8 g/dL (14.0-18.0) L 06/17/19 04:45 Hct 35.9 % (42.0-52.0) L 06/17/19 04:45 MCV 95.7 fL (80.0-94.0) H 06/17/19 04:45 MCH 31.5 pg (27.0-31.0) H 06/17/19 04:45 MCHC 32.9 g/dL (32.0-36.0) 06/17/19 04:45 RDW 18.6 % (12.0-15.0) H 06/17/19 04:45 Plt Count 174 10^3/uL (130-450) 06/17/19 04:45 MPV 10.7 fL (7.4-11.4) 06/17/19 04:45 Neut # (Auto) 6.6 10^3/uL (1.5-6.6) 06/17/19 04:45 Lymph # (Auto) 1.4 10^3/uL (1.5-3.5) L 06/17/19 04:45 Scott # (Auto) 1.0 10^3/uL (0.0-1.0) 06/17/19 04:45 Eos # (Auto) 0.1 10^3/uL (0.0-0.7) 06/17/19 04:45 Baso # (Auto) 0.1 10^3/uL (0.0-0.1) 06/17/19 04:45 Absolute Nucleated RBC 0.00 x10^3/uL 06/17/19 04:45 Nucleated RBC % 0.0 /100WBC 06/17/19 04:45 Manual Slide Review Indicated 06/13/19 07:45 Platelet Estimate NORMAL (130-450,000) (NORMAL) 06/12/19 20: Platelet Morphology NORMAL APPEARANCE (NORMAL) 06/12/19 20: RBC Morph Micro Appear 2+ ANISOCYTOSIS (NORMAL) 1+ MICROCYTOSIS (NORMAL) 1+ HYPOCHROMASIA (NORMAL) 06/12/19 20: RBC Morph Micro Appear 2+ ANISOCYTOSIS (NORMAL) 1+ MICROCYTOSIS (NORMAL) 1+ HYPOCHROMASIA (NORMAL) 06/12/19 20:21 RBC Morph Micro Appear 1+ ANISOCYTOSIS (NORMAL) 06/13/19 07:45 PT 12.7 secs (9.9-12.6) H 06/16/19 10:35 INR 1.1 (0.8-1.2) 06/16/19 10:35 Bld Gas Analysis Time 0540 06/15/19 05:23 Sample Site LEFT RADIAL 06/15/19 05:23 ABG pH 7.41 (7.35-7.45) 06/15/19 05:23 ABG pCO2 38 mmHg (34-45) 06/15/19 05:23 ABG pO2 95 mmHg (80-100) 06/15/19 05:23 ABG HCO3 23.6 mmol/L (22.0-26.0) 06/15/19 05:23 ABG Total CO2 24.8 MMOL/L (21.0-29.0) 06/15/19 05:23 ABG O2 Saturation 97 % (94-98) 06/15/19 05:23 ABG Base Excess -0.8 mmol/L (-2.0-3.0) 06/15/19 05:23 Brian Test POSITIVE 06/15/19 05:23 Respiration Rate 12 b/min 06/15/19 05:23 O2 Delivery Device VENTILATOR 06/15/19 05:23 Vent Mode SIMV 06/15/19 05:23 FiO2 28.00 06/15/19 05:23 Tidal Volume 600 mL 06/15/19 05:23 PEEP 5 cmH2O 06/15/19 05:23 Pressure Support Vent 10 cmH2O 06/15/19 05:23 Sodium 135 mmol/L (135-145) 06/17/19 04:45 Potassium 3.3 mmol/L (3.5-5.0) L 06/17/19 04:45 Chloride 102 mmol/L (101-111) 06/17/19 04:45 Carbon Dioxide 21 mmol/L (21-32) 06/17/19 04:45 Anion Gap 12.0 (6-13) 06/17/19 04:45 BUN 15 mg/dL (6-20) 06/17/19 04:45 Creatinine 0.6 mg/dL (0.6-1.2) 06/17/19 04:45 Estimated GFR (MDRD) 140 (>89) 06/17/19 04:45 Glucose 111 mg/dL (70-100) H 06/17/19 04:45 Calcium 8.8 mg/dL (8.5-10.3) 06/17/19 04:45 Phosphorus 2.1 mg/dL (2.5-4.6) L 06/16/19 10:35 Magnesium 2.3 mg/dL (1.7-2.8) 06/15/19 04:48 Total Bilirubin 1.0 mg/dL (0.2-1.0) 06/16/19 10:35 AST 56 IU/L (10-42) H 06/16/19 10:35 ALT 34 IU/L (10-60) 06/16/19 10:35 Alkaline Phosphatase 58 IU/L (42-121) 06/16/19 10:35 Troponin I High Sens 252.7 pg/mL (2.3-19.7) H* 06/14/19 05:05 Total Protein 7.2 g/dL (6.7-8.2) 06/16/19 10:35 Albumin 3.6 g/dL (3.2-5.5) 06/16/19 10:35 Globulin 3.6 g/dL (2.1-4.2) 06/16/19 10:35 Albumin/Globulin Ratio 1.0 (1.0-2.2) 06/16/19 10:35 Triglycerides 95 mg/dL (-149) 06/13/19 00:15 Cholesterol 240 mg/dL (-199) H 06/13/19 00:15 LDL Cholesterol, Calc 129 mg/dL (-129) 06/13/19 00:15 VLDL Cholesterol 19 mg/dL 06/13/19 00:15 HDL Cholesterol 92 mg/dL (60-) 06/13/19 00:15 LDL/HDL Ratio 1.4 (<3.6) 06/13/19 00:15 Cholesterol/HDL Ratio 2.6 (<5.0) 06/13/19 00:15 Lipase 139 U/L (22-51) H 06/16/19 10:35 Urine Color YELLOW 06/12/19 20:47 Urine Clarity CLEAR (CLEAR) 06/12/19 20:47 Urine pH 6.5 PH (5.0-7.5) 06/12/19 20:47 Ur Specific [place] <=1.005 (1.002-1.030) 06/12/19 20:47 Urine Protein NEGATIVE mg/dL (NEGATIVE) 06/12/19 20:47 Urine Glucose (UA) NEGATIVE mg/dL (NEGATIVE) 06/12/19 20:47 Urine Ketones NEGATIVE mg/dL (NEGATIVE) 06/12/19 20:47 Urine Occult Blood NEGATIVE (NEGATIVE) 06/12/19 20:47 Urine Nitrite NEGATIVE (NEGATIVE) 06/12/19 20:47 Urine Bilirubin NEGATIVE (NEGATIVE) 06/12/19 20:47 Urine Urobilinogen 0.2 (NORMAL) E.U./dL (NORMAL) 06/12/19 20:47 Ur Leukocyte Esterase NEGATIVE (NEGATIVE) 06/12/19 20:47 Ur Microscopic Review NOT INDICATED 06/12/19 20:47 Urine Culture Comments NOT INDICATED 06/12/19 20:47 Nasal Screen MRSA (PCR) NEGATIVE (NEGATIVE) 06/15/19 08:40 Stl Occult Blood (IFOB) POSITIVE (NEGATIVE) A 06/13/19 01:59 Ethyl Alcohol 382.8 mg/dL 06/12/19 20:21 Blood Type O POSITIVE 06/13/19 07:45 Antibody Screen NEGATIVE 06/13/19 07:45 - Procedures Procedures: Procedures PARTIAL SHOULDER REPLACEMENT (04/28/13)
[2019-06-17 09:33] LABS: MAGNESIUM 1.8 mg/dL (1.7-2.8)
[2019-06-17] MEDS: POLYETHYLENE GLYCOL 3350 17 GM PACKET PO SCH (10:27)
--- NOTE | 2019-06-17 10:35 | PROVIDER PROGRESS NOTE ---
Assessment/Plan - Problem List (1) Alcohol withdrawal Qualifiers: Complication of substance-induced condition: with unspecified complication Qualified Code(s): F10.239 - Alcohol dependence with withdrawal, unspecified Assessment/Plan: He required an iv Ativan drip and also was on the vent for airway protection after the tongue bleeding (which may have occurred during an alcohol withdrawal seizure). He was extubated 2 days ago. Yesterday and today, he has been lethargic but awakens. Will stop Ativan prn orders and the CIWA protocol. Will stop prn Dilaudid also, to allow to awaken fully. Continue with PT. Transfer out of ICU today. (2) Tongue biting Assessment/Plan: Laceration from biting or during an alcohol withdrawal seizure was unwitnessed. The Decadron dose x1 helped decrease tongue swelling. He is able to swallow solids. The tongue lesion was biopsied during the EGD, and results from pathology are pending. (3) Alcohol abuse Assessment/Plan: LFTs have returned to normal. His INR and plts are not abnormal. He is on daily oral Thiamine and multi-vitamins. Yesterday, the and daughter described that he has only been an alcoholic for the past 6 mos and has never had an admission for withdrawal before. Will re-order a SW consult, now that he is awakening after alcohol withdrawal, to discuss options with him and and daughter, regarding cessation of alcohol abuse. (4) Subarachnoid hemorrhage Assessment/Plan: The abnormal head CT done in the ER was suggestive of a small cerebral bleed. The ER reached out to neurology at [facility] with this result and a brain MRI was advised. The MRI was done yesterday and did show multifocal, small hemorrhages, consistent with prior trauma, per the [facility] radiologist who spoke to me. The patient does have history of falls which were presumed to be from affects of alcohol intoxication. His neuro exam is non-focal except his mentation and movements are "slow", which the family confirmed that he is still weak. Will continue to avoid anti-platelet agents and anti-coagulants. (5) Subdural hemorrhage Assessment/Plan: As in #4 (6) Falls Assessment/Plan: The history included multiple recent falls when he was intoxicated, per the family. He is not orthostatic yesterday or today, but has had several days of iv fluids for rehydration plus no alcohol intake. Continue PT. Will stop the orthostatic VS checks. The family also reported to me yesterday late afternoon, that he has had 5 mos of intermittent complaints of L face and L arm numbness. Today's sensory exam was equal in the face and arms and there was no specific abnormalty related to the right brain homunculus region controlling the R face and arm. (7) Hypokalemia Assessment/Plan: Related to poor intake in an alcoholic. Correct and follow BmP daily. (8) Macrocytic anemia Assessment/Plan: Likely related to vitamin deficiencies in an alcoholic. He has adequate Hgb and plt levels however. (9) Tobacco dependence Assessment/Plan: Nicotine patch was started to help with nicotine urge sx. (10) Malnutrition of moderate degree Assessment/Plan: The Field Identification Specialist has calculated that his intake had been <50% of expected and he is weak. According to the family, he has an appetite now. (11) HTN (hypertension) Assessment/Plan: Will restart (a lower dose) of his Lisinopril today. (12) Hyperlipemia Assessment/Plan: Will restart his Zocor, now that his LFTs have normalized, with evening statin dosing. (13) Airway obstruction Assessment/Plan: Resolved (14) Pancreatitis Assessment/Plan: Resolved, tolerating solid foods. - Current Meds Current Meds: Current Medications Generic Name Dose Route Start Last Admin Trade Name Freq PRN Reason Stop Dose Admin Chlorhexidine Gluconate 15 ml 06/14/19 21:00 06/17/19 08:54 Peridex PO 15 ml BID ALBINO Administration Enalaprilat 0.625 mg 06/15/19 00:00 06/17/19 06:34 Vasotec Inj IVP 0.625 mg Q6HR ALBINO Administration Hydromorphone HCl 0.5 mg 06/13/19 12:51 06/15/19 07:59 Dilaudid Inj Carp IVP 0.5 mg Q2HR PRN Administration PAIN Nicotine 1 patch 06/15/19 09:00 06/17/19 08:48 Nicoderm TOP 1 patch DAILY ALBINO Administration Ondansetron HCl 4 mg 06/12/19 23:42 06/13/19 18:23 Zofran Inj IVP 4 mg Q6HR PRN Administration Nausea / Vomiting Pantoprazole Sodium 40 mg 06/13/19 09:00 06/17/19 08:48 Protonix IVP 40 mg BID ALBINO Administration Polyethylene Glycol 17 gm 06/16/19 09:00 06/17/19 10:27 Miralax PO Not Given DAILY ALBINO Multivit/Folic Acid/Iron 1 tab 06/16/19 12:00 06/17/19 08:46 Trinatal Rx 1 PO 1 tab DAILYWM ALBINO Administration Sodium Chloride 10 ml 06/12/19 23:42 06/13/19 15:42 Normal Saline Flush 0.9% IVP 10 ml PRN PRN Administration NEEDED PER PROVIDER ORDERS Sodium Chloride 10 ml 06/13/19 01:00 06/17/19 00:16 Normal Saline Flush 0.9% IVP 10 ml 0100,0900,1700 ALBINO Administration Thiamine HCl 100 mg 06/16/19 12:00 06/17/19 08:48 Vitamin B-1 PO 100 mg DAILY ALBINO Administration - Lab Result Fish Bone Diagrams: 06/17/19 04:45 06/17/19 04:45 - Additional Planning My Orders: My Active Orders 06/16/19 12:00 Vitamin [Trinatal Rx 1] 1 tab PO DAILYWM Thiamine [Vitamin B-1] 100 mg PO DAILY 06/16/19 14:16 Postural [Vital Signs - Orthostatic] [RC] DAILY 06/16/19 Dinner DIET [Soft Mechanical Diet] [DIET] 06/17/19 Social Work Consult [CONS] Routine 06/18/19 05:00 BMP - BASIC METABOLIC PANEL [CHEM] DAILYLAB CBC - COMP BLD CT W/AUTO DIFF [HEME] DAILYLAB 06/19/19 05:00 BMP - BASIC METABOLIC PANEL [CHEM] DAILYLAB CBC - COMP BLD CT W/AUTO DIFF [HEME] DAILYLAB Subjective - Subjective Patient Reports: Resting Comfortably Nursing Reports: Other (Sleepy but awakens to get OOB, walk with PT and to sit up to eat) Objective Vital Signs: Vital Signs - 24 hr 06/16/19 06/16/19 06/16/19 11:00 12:00 13:00 Temperature 36.9 C Heart Rate [ 95 Activity] Heart Rate [ 65 81 98 Brachial] Heart Rate [ Sitting (After 1 Minute)] Heart Rate [ Standing (After 1 Minute)] Heart Rate [ 102 H Supine] Respiratory 19 16 20 Rate Blood Pressure 151/91 H [Activity] Blood Pressure 127/80 150/95 H 151/94 H [Left Brachial artery] Blood Pressure [Sitting (After 1 Minute)] Blood Pressure [Standing ( After 1 Minute) ] Blood Pressure 132/85 H [Supine] O2 Saturation 97 97 97 06/16/19 06/16/19 06/16/19 13:13 13:18 13:23 Temperature Heart Rate [ Activity] Heart Rate [ 89 90 93 Brachial] Heart Rate [ Sitting (After 1 Minute)] Heart Rate [ Standing (After 1 Minute)] Heart Rate [ Supine] Respiratory Rate Blood Pressure [Activity] Blood Pressure 145/105 H 155/119 H 141/94 H [Left Brachial artery] Blood Pressure [Sitting (After 1 Minute)] Blood Pressure [Standing ( After 1 Minute) ] Blood Pressure [Supine] O2 Saturation 06/16/19 06/16/19 06/16/19 13:30 13:45 14:00 Temperature Heart Rate [ Activity] Heart Rate [ 94 95 95 Brachial] Heart Rate [ Sitting (After 1 Minute)] Heart Rate [ Standing (After 1 Minute)] Heart Rate [ Supine] Respiratory 20 Rate Blood Pressure [Activity] Blood Pressure 166/104 H 140/100 H 127/87 H [Left Brachial artery] Blood Pressure [Sitting (After 1 Minute)] Blood Pressure [Standing ( After 1 Minute) ] Blood Pressure [Supine] O2 Saturation 98 06/16/19 06/16/19 06/16/19 15:00 16:00 16:55 Temperature 37.2 C Heart Rate [ Activity] Heart Rate [ 63 65 Brachial] Heart Rate [ 98 Sitting (After 1 Minute)] Heart Rate [ 99 Standing (After 1 Minute)] Heart Rate [ 83 Supine] Respiratory 17 21 Rate Blood Pressure [Activity] Blood Pressure 118/80 120/76 [Left Brachial artery] Blood Pressure 155/86 H [Sitting (After 1 Minute)] Blood Pressure 148/98 H [Standing ( After 1 Minute) ] Blood Pressure 138/88 H [Supine] O2 Saturation 97 100 06/16/19 06/16/19 06/16/19 17:53 17:58 18:03 Temperature Heart Rate [ Activity] Heart Rate [ 103 H 109 H 94 Brachial] Heart Rate [ Sitting (After 1 Minute)] Heart Rate [ Standing (After 1 Minute)] Heart Rate [ Supine] Respiratory 22 Rate Blood Pressure [Activity] Blood Pressure 129/80 144/83 H 149/92 H [Left Brachial artery] Blood Pressure [Sitting (After 1 Minute)] Blood Pressure [Standing ( After 1 Minute) ] Blood Pressure [Supine] O2 Saturation 100 06/16/19 06/16/19 06/16/19 18:15 18:30 18:45 Temperature Heart Rate [ Activity] Heart Rate [ 91 83 89 Brachial] Heart Rate [ Sitting (After 1 Minute)] Heart Rate [ Standing (After 1 Minute)] Heart Rate [ Supine] Respiratory Rate Blood Pressure [Activity] Blood Pressure 129/82 H 122/77 135/74 H [Left Brachial artery] Blood Pressure [Sitting (After 1 Minute)] Blood Pressure [Standing ( After 1 Minute) ] Blood Pressure [Supine] O2 Saturation 06/16/19 06/16/19 06/16/19 19:00 20:00 21:00 Temperature Heart Rate [ Activity] Heart Rate [ 82 106 H 91 Brachial] Heart Rate [ Sitting (After 1 Minute)] Heart Rate [ Standing (After 1 Minute)] Heart Rate [ Supine] Respiratory 30 H 28 H 21 Rate Blood Pressure [Activity] Blood Pressure 121/85 H 142/85 H 158/90 H [Left Brachial artery] Blood Pressure [Sitting (After 1 Minute)] Blood Pressure [Standing ( After 1 Minute) ] Blood Pressure [Supine] O2 Saturation 97 96 96 06/17/19 06/17/19 06/17/19 00:00 01:00 02:00 Temperature Heart Rate [ Activity] Heart Rate [ 90 75 65 Brachial] Heart Rate [ Sitting (After 1 Minute)] Heart Rate [ Standing (After 1 Minute)] Heart Rate [ Supine] Respiratory 22 23 27 H Rate Blood Pressure [Activity] Blood Pressure 123/83 H 155/95 H 156/85 H [Left Brachial artery] Blood Pressure [Sitting (After 1 Minute)] Blood Pressure [Standing ( After 1 Minute) ] Blood Pressure [Supine] O2 Saturation 96 96 96 06/17/19 06/17/19 06/17/19 03:00 04:00 05:00 Temperature 36.7 C 37.4 C Heart Rate [ Activity] Heart Rate [ 79 78 88 Brachial] Heart Rate [ Sitting (After 1 Minute)] Heart Rate [ Standing (After 1 Minute)] Heart Rate [ Supine] Respiratory 21 16 26 H Rate Blood Pressure [Activity] Blood Pressure 147/92 H 156/84 H 148/92 H [Left Brachial artery] Blood Pressure [Sitting (After 1 Minute)] Blood Pressure [Standing ( After 1 Minute) ] Blood Pressure [Supine] O2 Saturation 96 99 96 06/17/19 06/17/19 06/17/19 06:00 07:00 08:00 Temperature 37.2 C Heart Rate [ Activity] Heart Rate [ 78 66 77 Brachial] Heart Rate [ Sitting (After 1 Minute)] Heart Rate [ Standing (After 1 Minute)] Heart Rate [ Supine] Respiratory 26 H 21 23 Rate Blood Pressure [Activity] Blood Pressure 162/98 H 126/62 114/66 [Left Brachial artery] Blood Pressure [Sitting (After 1 Minute)] Blood Pressure [Standing ( After 1 Minute) ] Blood Pressure [Supine] O2 Saturation 97 97 96 06/17/19 06/17/19 06/17/19 09:00 10:00 10:11 Temperature Heart Rate [ Activity] Heart Rate [ 78 90 Brachial] Heart Rate [ 102 H Sitting (After 1 Minute)] Heart Rate [ 112 H Standing (After 1 Minute)] Heart Rate [ 90 Supine] Respiratory 23 20 Rate Blood Pressure [Activity] Blood Pressure 119/81 H 139/87 H [Left Brachial artery] Blood Pressure 141/84 H [Sitting (After 1 Minute)] Blood Pressure 139/92 H [Standing ( After 1 Minute) ] Blood Pressure 139/87 H [Supine] O2 Saturation 96 96 Oxygen O2 Source Room air I&O (Last 24 Hrs): Intake and Output Totals x24h 06/15/19 06/16/19 06/17/19 23:59 23:59 23:59 Intake Total 3542.450 3663.75 150 Output Total 3658 2565 1205 Balance -251.863 2382.75 -1055 General: Other (Lethargic but awakens to name) HEENT: Mucous membr. moist/pink Neck: Supple Neuro: Non Focal, Other (Sensory exam of face and arms is equal bilaerally) Cardiovascular: Regular rate, No murmurs Respiratory: No respiratory distress Abdomen: Soft Extremities: No edema Skin: No significant lesion (Diaphoretic) - Results Results: Laboratory Results WBC 9.2 x10^3/uL (4.8-10.8) 06/17/19 04:45 RBC 3.75 10^6/uL (4.70-6.10) L 06/17/19 04:45 Hgb 11.8 g/dL (14.0-18.0) L 06/17/19 04:45 Hct 35.9 % (42.0-52.0) L 06/17/19 04:45 MCV 95.7 fL (80.0-94.0) H 06/17/19 04:45 MCH 31.5 pg (27.0-31.0) H 06/17/19 04:45 MCHC 32.9 g/dL (32.0-36.0) 06/17/19 04:45 RDW 18.6 % (12.0-15.0) H 06/17/19 04:45 Plt Count 174 10^3/uL (130-450) 06/17/19 04:45 MPV 10.7 fL (7.4-11.4) 06/17/19 04:45 Neut # (Auto) 6.6 10^3/uL (1.5-6.6) 06/17/19 04:45 Lymph # (Auto) 1.4 10^3/uL (1.5-3.5) L 06/17/19 04:45 Tift # (Auto) 1.0 10^3/uL (0.0-1.0) 06/17/19 04:45 Eos # (Auto) 0.1 10^3/uL (0.0-0.7) 06/17/19 04:45 Baso # (Auto) 0.1 10^3/uL (0.0-0.1) 06/17/19 04:45 Absolute Nucleated RBC 0.00 x10^3/uL 06/17/19 04:45 Nucleated RBC % 0.0 /100WBC 06/17/19 04:45 Manual Slide Review Indicated 06/13/19 07:45 Platelet Estimate NORMAL (130-450,000) (NORMAL) 06/12/19 20:21 Platelet Morphology NORMAL APPEARANCE (NORMAL) 06/12/19 20: RBC Morph Micro Appear 2+ ANISOCYTOSIS (NORMAL) 1+ MICROCYTOSIS (NORMAL) 1+ HYPOCHROMASIA (NORMAL) 06/12/19 20:21 RBC Morph Micro Appear 2+ ANISOCYTOSIS (NORMAL) 1+ MICROCYTOSIS (NORMAL) 1+ HYPOCHROMASIA (NORMAL) 06/12/19 20:21 RBC Morph Micro Appear 1+ ANISOCYTOSIS (NORMAL) 06/13/19 07:45 PT 12.7 secs (9.9-12.6) H 06/16/19 10:35 INR 1.1 (0.8-1.2) 06/16/19 10:35 Bld Gas Analysis Time 0540 06/15/19 05:23 Sample Site LEFT RADIAL 06/15/19 05:23 ABG pH 7.41 (7.35-7.45) 06/15/19 05:23 ABG pCO2 38 mmHg (34-45) 06/15/19 05:23 ABG pO2 95 mmHg (80-100) 06/15/19 05:23 ABG HCO3 23.6 mmol/L (22.0-26.0) 06/15/19 05:23 ABG Total CO2 24.8 MMOL/L (21.0-29.0) 06/15/19 05:23 ABG O2 Saturation 97 % (94-98) 06/15/19 05:23 ABG Base Excess -0.8 mmol/L (-2.0-3.0) 06/15/19 05:23 Brian Test POSITIVE 06/15/19 05:23 Respiration Rate 12 b/min 06/15/19 05:23 O2 Delivery Device VENTILATOR 06/15/19 05:23 Vent Mode SIMV 06/15/19 05:23 FiO2 28.00 06/15/19 05:23 Tidal Volume 600 mL 06/15/19 05:23 PEEP 5 cmH2O 06/15/19 05:23 Pressure Support Vent 10 cmH2O 06/15/19 05:23 Sodium 135 mmol/L (135-145) 06/17/19 04:45 Potassium 3.3 mmol/L (3.5-5.0) L 06/17/19 04:45 Chloride 102 mmol/L (101-111) 06/17/19 04:45 Carbon Dioxide 21 mmol/L (21-32) 06/17/19 04:45 Anion Gap 12.0 (6-13) 06/17/19 04:45 BUN 15 mg/dL (6-20) 06/17/19 04:45 Creatinine 0.6 mg/dL (0.6-1.2) 06/17/19 04:45 Estimated GFR (MDRD) 140 (>89) 06/17/19 04:45 Glucose 111 mg/dL (70-100) H 06/17/19 04:45 Calcium 8.8 mg/dL (8.5-10.3) 06/17/19 04:45 Phosphorus 2.1 mg/dL (2.5-4.6) L 06/16/19 10:35 Magnesium 1.8 mg/dL (1.7-2.8) 06/17/19 04:55 Total Bilirubin 1.0 mg/dL (0.2-1.0) 06/16/19 10:35 AST 56 IU/L (10-42) H 06/16/19 10:35 ALT 34 IU/L (10-60) 06/16/19 10:35 Alkaline Phosphatase 58 IU/L (42-121) 06/16/19 10:35 Troponin I High Sens 252.7 pg/mL (2.3-19.7) H* 06/14/19 05:05 Total Protein 7.2 g/dL (6.7-8.2) 06/16/19 10:35 Albumin 3.6 g/dL (3.2-5.5) 06/16/19 10:35 Globulin 3.6 g/dL (2.1-4.2) 06/16/19 10:35 Albumin/Globulin Ratio 1.0 (1.0-2.2) 06/16/19 10:35 Triglycerides 95 mg/dL (-149) 06/13/19 00:15 Cholesterol 240 mg/dL (-199) H 06/13/19 00:15 LDL Cholesterol, Calc 129 mg/dL (-129) 06/13/19 00:15 VLDL Cholesterol 19 mg/dL 06/13/19 00:15 HDL Cholesterol 92 mg/dL (60-) 06/13/19 00:15 LDL/HDL Ratio 1.4 (<3.6) 06/13/19 00:15 Cholesterol/HDL Ratio 2.6 (<5.0) 06/13/19 00:15 Lipase 112 U/L (22-51) H 06/17/19 04:55 Urine Color YELLOW 06/12/19 20:47 Urine Clarity CLEAR (CLEAR) 06/12/19 20:47 Urine pH 6.5 PH (5.0-7.5) 06/12/19 20:47 Ur Specific [place] <=1.005 (1.002-1.030) 06/12/19 20:47 Urine Protein NEGATIVE mg/dL (NEGATIVE) 06/12/19 20:47 Urine Glucose (UA) NEGATIVE mg/dL (NEGATIVE) 06/12/19 20:47 Urine Ketones NEGATIVE mg/dL (NEGATIVE) 06/12/19 20:47 Urine Occult Blood NEGATIVE (NEGATIVE) 06/12/19 20:47 Urine Nitrite NEGATIVE (NEGATIVE) 06/12/19 20:47 Urine Bilirubin NEGATIVE (NEGATIVE) 06/12/19 20:47 Urine Urobilinogen 0.2 (NORMAL) E.U./dL (NORMAL) 06/12/19 20:47 Ur Leukocyte Esterase NEGATIVE (NEGATIVE) 06/12/19 20:47 Ur Microscopic Review NOT INDICATED 06/12/19 20:47 Urine Culture Comments NOT INDICATED 06/12/19 20:47 Nasal Screen MRSA (PCR) NEGATIVE (NEGATIVE) 06/15/19 08:40 Stl Occult Blood (IFOB) POSITIVE (NEGATIVE) A 06/13/19 01:59 Ethyl Alcohol 382.8 mg/dL 06/12/19 20:21 Blood Type O POSITIVE 06/13/19 07:45 Antibody Screen NEGATIVE 06/13/19 07:45 - Procedures Procedures: Procedures PARTIAL SHOULDER REPLACEMENT (04/28/13)
[2019-06-17] MEDS: LISINOPRIL 20 MG TABLET PO SCH (11:04)
[2019-06-17] MEDS: AMITRIPTYLINE 25 MG TABLET PO SCH (21:14)
[2019-06-17] MEDS: ATORVASTATIN 10 MG TABLET PO SCH (21:15)
[2019-06-17] MEDS: SODIUM CHLORIDE FLUSH 0.9% 10 ML SYRINGE IVP PRN (21:15)
[2019-06-18] MEDS: SODIUM CHLORIDE FLUSH 0.9% 10 ML SYRINGE IVP SCH ×3 (00:33→21:10)
[2019-06-18 05:26] LABS: BASOPHILS # (AUTO) 0.1 10^3/uL (0.0-0.1); BASOPHILS % (AUTO) 0.9 %; EOSINOPHILS # (AUTO) 0.1 10^3/uL (0.0-0.7); EOSINOPHILS % (AUTO) 1.5 %; HGB - HEMOGLOBIN 11.4 g/dL (14.0-18.0); LYMPHOCYTES # (AUTO) 1.5 10^3/uL (1.5-3.5); LYMPHOCYTES % (AUTO) 18.1 %; MEAN CORPUSCULAR HEMOGLOBIN 30.6 pg (27.0-31.0); MEAN CORPUSCULAR HGB CONC 31.9 g/dL (32.0-36.0); MEAN PLATELET VOLUME 11.1 fL (7.4-11.4); MONOCYTES # (AUTO) 1.3 10^3/uL (0.0-1.0); MONOCYTES % (AUTO) 14.9 %; NEUTROPHILS # (AUTO) 5.4 10^3/uL (1.5-6.6); NEUTROPHILS % (AUTO) 63.8 %; PLT - PLATELET COUNT 195 10^3/uL (130-450); RED BLOOD COUNT 3.72 10^6/uL (4.70-6.10); RED CELL DISTRIBUTION WIDTH 18.5 % (12.0-15.0); WHITE BLOOD COUNT 8.5 x10^3/uL (4.8-10.8)
[2019-06-18 05:31] LABS: CALCIUM 9.1 mg/dL (8.5-10.3); CREATININE 0.7 mg/dL (0.6-1.2)
[2019-06-18] MEDS: PANTOPRAZOLE 40 MG VIAL IVP SCH ×2 (08:52→21:09)
[2019-06-18] MEDS: POLYETHYLENE GLYCOL 3350 17 GM PACKET PO SCH (08:52)
[2019-06-18] MEDS: NICOTINE 14 MG PATCH TOP SCH (08:53)
[2019-06-18] MEDS: CHLORHEXIDINE GLUCONATE 15 ML UDC PO SCH ×2 (08:53→21:09)
[2019-06-18] MEDS: THIAMINE 100 MG TABLET PO SCH (08:53)
[2019-06-18] MEDS: LISINOPRIL 20 MG TABLET PO SCH (08:53)
[2019-06-18] MEDS: PRENATAL VITAMIN TABLET PO SCH (08:54)
[2019-06-18] MEDS ORDERED: SODIUM CHLORIDE 0.9% 500 ML IV ONE (16:14)
--- NOTE | 2019-06-18 19:22 | PROVIDER PROGRESS NOTE ---
Assessment/Plan - Problem List (1) Tachycardia Assessment/Plan: He had a sustained HR of 140 in sinus tachycardia. He denies pain, no fever in a.m. Orthostatic VS did show a significant rise in HR of 20 bpm, from supine to upright, suggesting dehydration. Bolus of 500 cc iv saline given and will start gentle hydration. No DCh home today (2) Alcohol withdrawal Qualifiers: Complication of substance-induced condition: with unspecified complication Qualified Code(s): F10.239 - Alcohol dependence with withdrawal, unspecified (3) Alcohol abuse Assessment/Plan: Thiamine and vitamins ordered. The SW has arranged for a meeting with counselor on Sat06/22/19 in [place] for him and he is agreeable. (4) Subarachnoid hemorrhage Assessment/Plan: Stable (5) Subdural hemorrhage Assessment/Plan: Stable (6) Falls Assessment/Plan: Walking with PT and short distances independantly now. The orthosasis and the intoxication were probably contributing to falls before admission (7) Hypokalemia Assessment/Plan: Resolved with replacement (8) Macrocytic anemia Assessment/Plan: Stable Hgb, he is on vitamin replacements (9) Tobacco dependence Assessment/Plan: No c/o nakul Nicotine patch (10) Malnutrition of moderate degree Assessment/Plan: Diet has improved significantly (11) HTN (hypertension) Assessment/Plan: BP stable on current meds (12) Hyperlipemia Assessment/Plan: Chronic, statin was restarted when LFTs normalized (13) Airway obstruction Assessment/Plan: Resolved (14) Pancreatitis Assessment/Plan: Resolved (15) Tongue biting Assessment/Plan: Resolved - Current Meds Current Meds: Current Medications Generic Name Dose Route Start Last Admin Trade Name Freq PRN Reason Stop Dose Admin Amitriptyline HCl 50 mg 06/17/19 21:00 06/17/19 21:14 Elavil PO 50 mg QPM ALBINO Administration Atorvastatin Calcium 10 mg 06/17/19 21:00 06/17/19 21:15 Lipitor PO 10 mg QPM ALBINO Administration Chlorhexidine Gluconate 15 ml 06/14/19 21:00 06/18/19 08:53 Peridex PO 15 ml BID ALBINO Administration Lisinopril 10 mg 06/17/19 11:00 06/18/19 08:53 Zestril PO 10 mg DAILY ALBINO Administration Nicotine 1 patch 06/15/19 09:00 06/18/19 08:53 Nicoderm TOP 1 patch DAILY ALBINO Administration Ondansetron HCl 4 mg 06/12/19 23:42 06/13/19 18:23 Zofran Inj IVP 4 mg Q6HR PRN Administration Nausea / Vomiting Pantoprazole Sodium 40 mg 06/13/19 09:00 06/18/19 08:52 Protonix IVP 40 mg BID ALBINO Administration Polyethylene Glycol 17 gm 06/16/19 09:00 06/18/19 08:52 Miralax PO 17 gm DAILY ALBINO Administration Multivit/Folic Acid/Iron 1 tab 06/16/19 12:00 06/18/19 08:54 Trinatal Rx 1 PO 1 tab DAILYWM ALBINO Administration Sodium Chloride 10 ml 06/12/19 23:42 06/17/19 21:15 Normal Saline Flush 0.9% IVP 10 ml PRN PRN Administration NEEDED PER PROVIDER ORDERS Sodium Chloride 10 ml 06/13/19 01:00 06/18/19 08:52 Normal Saline Flush 0.9% IVP 10 ml 0100,0900,1700 ALBINO Administration Thiamine HCl 100 mg 06/16/19 12:00 06/18/19 08:53 Vitamin B-1 PO 100 mg DAILY ALBINO Administration - Lab Result Fish Bone Diagrams: 06/20/19 05:18 06/20/19 05:18 - Additional Planning My Orders: My Active Orders 06/17/19 21:00 Amitriptyline [Elavil] 50 mg PO QPM Atorvastatin [Lipitor] 10 mg PO QPM 06/18/19 11:21 Postural [Vital Signs - Orthostatic] [RC] DAILY 06/19/19 05:00 BMP - BASIC METABOLIC PANEL [CHEM] DAILYLAB CBC - COMP BLD CT W/AUTO DIFF [HEME] DAILYLAB Subjective - Subjective Patient Reports: Feeling Better Nursing Reports: Other (Still slow to answer, nearly fell with PT and HR destiny to 140's as got OOB for PT) Objective Vital Signs: Vital Signs - 24 hr 06/17/19 06/18/19 06/18/19 19:43 00:34 04:34 Temperature 36.7 C 37.3 C 37.5 C Heart Rate [ 98 69 61 Brachial] Heart Rate [ Sitting (After 1 Minute)] Heart Rate [ Standing (After 1 Minute)] Heart Rate [ Supine] Respiratory 20 18 16 Rate Blood Pressure 142/87 H 140/81 H 136/77 H [Left Brachial artery] Blood Pressure [Sitting (After 1 Minute)] Blood Pressure [Standing ( After 1 Minute) ] Blood Pressure [Supine] O2 Saturation 98 97 96 06/18/19 06/18/19 06/18/19 09:00 10:38 10:42 Temperature 36.8 C Heart Rate [ 100 121 H 110 H Brachial] Heart Rate [ Sitting (After 1 Minute)] Heart Rate [ Standing (After 1 Minute)] Heart Rate [ Supine] Respiratory 19 Rate Blood Pressure 107/66 [Left Brachial artery] Blood Pressure [Sitting (After 1 Minute)] Blood Pressure [Standing ( After 1 Minute) ] Blood Pressure [Supine] O2 Saturation 95 06/18/19 06/18/19 13:00 17:00 Temperature 36.8 C 36.2 C L Heart Rate [ 109 H 93 Brachial] Heart Rate [ 114 H Sitting (After 1 Minute)] Heart Rate [ 124 H Standing (After 1 Minute)] Heart Rate [ 100 Supine] Respiratory 18 19 Rate Blood Pressure 138/79 H 147/68 H [Left Brachial artery] Blood Pressure 132/78 H [Sitting (After 1 Minute)] Blood Pressure 122/74 [Standing ( After 1 Minute) ] Blood Pressure 138/79 H [Supine] O2 Saturation 98 99 Oxygen O2 Source Room air I&O (Last 24 Hrs): Intake and Output Totals x24h 06/16/19 06/17/19 06/18/19 23:59 23:59 23:59 Intake Total 3816.00 690 1450 Output Total 2565 1950 1050 Balance 1251.00 -1260 400 General: Alert, Oriented x3 HEENT: Mucous membr. moist/pink, Other (Looks tired) Neck: Supple, No JVD Neuro: Non Focal Cardiovascular: Regular rate Respiratory: No respiratory distress Abdomen: Normal bowel sounds, Soft Extremities: No edema - Results Results: Laboratory Results WBC 8.5 x10^3/uL (4.8-10.8) 06/18/19 04:50 RBC 3.72 10^6/uL (4.70-6.10) L 06/18/19 04:50 Hgb 11.4 g/dL (14.0-18.0) L 06/18/19 04:50 Hct 35.7 % (42.0-52.0) L 06/18/19 04:50 MCV 96.0 fL (80.0-94.0) H 06/18/19 04:50 MCH 30.6 pg (27.0-31.0) 06/18/19 04:50 MCHC 31.9 g/dL (32.0-36.0) L 06/18/19 04:50 RDW 18.5 % (12.0-15.0) H 06/18/19 04:50 Plt Count 195 10^3/uL (130-450) 06/18/19 04:50 MPV 11.1 fL (7.4-11.4) 06/18/19 04:50 Neut # (Auto) 5.4 10^3/uL (1.5-6.6) 06/18/19 04:50 Lymph # (Auto) 1.5 10^3/uL (1.5-3.5) 06/18/19 04:50 [place] # (Auto) 1.3 10^3/uL (0.0-1.0) H 06/18/19 04:50 Eos # (Auto) 0.1 10^3/uL (0.0-0.7) 06/18/19 04:50 Baso # (Auto) 0.1 10^3/uL (0.0-0.1) 06/18/19 04:50 Absolute Nucleated RBC 0.00 x10^3/uL 06/18/19 04:50 Nucleated RBC % 0.0 /100WBC 06/18/19 04:50 Manual Slide Review Indicated 06/13/19 07:45 Platelet Estimate NORMAL (130-450,000) (NORMAL) 06/12/19 20:21 Platelet Morphology NORMAL APPEARANCE (NORMAL) 06/12/19 20:21 RBC Morph Micro Appear 2+ ANISOCYTOSIS (NORMAL) 1+ MICROCYTOSIS (NORMAL) 1+ HYPOCHROMASIA (NORMAL) 06/12/19 20: RBC Morph Micro Appear 2+ ANISOCYTOSIS (NORMAL) 1+ MICROCYTOSIS (NORMAL) 1+ HYPOCHROMASIA (NORMAL) 06/12/19 20:21 RBC Morph Micro Appear 1+ ANISOCYTOSIS (NORMAL) 06/13/19 07:45 PT 12.7 secs (9.9-12.6) H 06/16/19 10:35 INR 1.1 (0.8-1.2) 06/16/19 10:35 Bld Gas Analysis Time 0540 06/15/19 05:23 Sample Site LEFT RADIAL 06/15/19 05:23 ABG pH 7.41 (7.35-7.45) 06/15/19 05:23 ABG pCO2 38 mmHg (34-45) 06/15/19 05:23 ABG pO2 95 mmHg (80-100) 06/15/19 05:23 ABG HCO3 23.6 mmol/L (22.0-26.0) 06/15/19 05:23 ABG Total CO2 24.8 MMOL/L (21.0-29.0) 06/15/19 05:23 ABG O2 Saturation 97 % (94-98) 06/15/19 05:23 ABG Base Excess -0.8 mmol/L (-2.0-3.0) 06/15/19 05:23 Brian Test POSITIVE 06/15/19 05:23 Respiration Rate 12 b/min 06/15/19 05:23 O2 Delivery Device VENTILATOR 06/15/19 05:23 Vent Mode SIMV 06/15/19 05:23 FiO2 28.00 06/15/19 05:23 Tidal Volume 600 mL 06/15/19 05:23 PEEP 5 cmH2O 06/15/19 05:23 Pressure Support Vent 10 cmH2O 06/15/19 05:23 Sodium 137 mmol/L (135-145) 06/18/19 04:50 Potassium 3.5 mmol/L (3.5-5.0) 06/18/19 04:50 Chloride 105 mmol/L (101-111) 06/18/19 04:50 Carbon Dioxide 23 mmol/L (21-32) 06/18/19 04:50 Anion Gap 9.0 (6-13) 06/18/19 04:50 BUN 12 mg/dL (6-20) 06/18/19 04:50 Creatinine 0.7 mg/dL (0.6-1.2) 06/18/19 04:50 Estimated GFR (MDRD) 117 (>89) 06/18/19 04:50 Glucose 134 mg/dL (70-100) H 06/18/19 04:50 Calcium 9.1 mg/dL (8.5-10.3) 06/18/19 04:50 Phosphorus 2.1 mg/dL (2.5-4.6) L 06/16/19 10:35 Magnesium 1.8 mg/dL (1.7-2.8) 06/17/19 04:55 Total Bilirubin 1.0 mg/dL (0.2-1.0) 06/16/19 10:35 AST 56 IU/L (10-42) H 06/16/19 10:35 ALT 34 IU/L (10-60) 06/16/19 10:35 Alkaline Phosphatase 58 IU/L (42-121) 06/16/19 10:35 Troponin I High Sens 252.7 pg/mL (2.3-19.7) H* 06/14/19 05:05 Total Protein 7.2 g/dL (6.7-8.2) 06/16/19 10:35 Albumin 3.6 g/dL (3.2-5.5) 06/16/19 10:35 Globulin 3.6 g/dL (2.1-4.2) 06/16/19 10:35 Albumin/Globulin Ratio 1.0 (1.0-2.2) 06/16/19 10:35 Triglycerides 95 mg/dL (-149) 06/13/19 00:15 Cholesterol 240 mg/dL (-199) H 06/13/19 00:15 LDL Cholesterol, Calc 129 mg/dL (-129) 06/13/19 00:15 VLDL Cholesterol 19 mg/dL 06/13/19 00:15 HDL Cholesterol 92 mg/dL (60-) 06/13/19 00:15 LDL/HDL Ratio 1.4 (<3.6) 06/13/19 00:15 Cholesterol/HDL Ratio 2.6 (<5.0) 06/13/19 00:15 Lipase 112 U/L (22-51) H 06/17/19 04:55 Urine Color YELLOW 06/12/19 20:47 Urine Clarity CLEAR (CLEAR) 06/12/19 20:47 Urine pH 6.5 PH (5.0-7.5) 06/12/19 20:47 Ur Specific [place] <=1.005 (1.002-1.030) 06/12/19 20:47 Urine Protein NEGATIVE mg/dL (NEGATIVE) 06/12/19 20:47 Urine Glucose (UA) NEGATIVE mg/dL (NEGATIVE) 06/12/19 20:47 Urine Ketones NEGATIVE mg/dL (NEGATIVE) 06/12/19 20:47 Urine Occult Blood NEGATIVE (NEGATIVE) 06/12/19 20:47 Urine Nitrite NEGATIVE (NEGATIVE) 06/12/19 20:47 Urine Bilirubin NEGATIVE (NEGATIVE) 06/12/19 20:47 Urine Urobilinogen 0.2 (NORMAL) E.U./dL (NORMAL) 06/12/19 20:47 Ur Leukocyte Esterase NEGATIVE (NEGATIVE) 06/12/19 20:47 Ur Microscopic Review NOT INDICATED 06/12/19 20:47 Urine Culture Comments NOT INDICATED 06/12/19 20:47 Nasal Screen MRSA (PCR) NEGATIVE (NEGATIVE) 06/15/19 08:40 Stl Occult Blood (IFOB) POSITIVE (NEGATIVE) A 06/13/19 01:59 Ethyl Alcohol 382.8 mg/dL 06/12/19 20:21 Blood Type O POSITIVE 06/13/19 07:45 Antibody Screen NEGATIVE 06/13/19 07:45 - Procedures Procedures: Procedures PARTIAL SHOULDER REPLACEMENT (04/28/13)
[2019-06-18] MEDS: NS W/20 MEQ KCL 1,000 ML IV SCH (21:09)
[2019-06-18] MEDS: AMITRIPTYLINE 25 MG TABLET PO SCH (21:10)
[2019-06-18] MEDS: ATORVASTATIN 10 MG TABLET PO SCH (21:10)
[2019-06-18] MEDS: ZOLPIDEM 5 MG TABLET PO SCH (21:10)
[2019-06-18] MEDS: ACETAMINOPHEN 325 MG TABLET PO PRN (22:55)
[2019-06-19] MEDS: SODIUM CHLORIDE FLUSH 0.9% 10 ML SYRINGE IVP SCH ×3 (00:15→15:39)
[2019-06-19] MEDS: ACETAMINOPHEN 325 MG TABLET PO PRN ×2 (04:37→08:18)
[2019-06-19 05:26] LABS: BASOPHILS # (AUTO) 0.1 10^3/uL (0.0-0.1); BASOPHILS % (AUTO) 0.5 %; EOSINOPHILS # (AUTO) 0.1 10^3/uL (0.0-0.7); EOSINOPHILS % (AUTO) 0.9 %; HGB - HEMOGLOBIN 11.8 g/dL (14.0-18.0); LYMPHOCYTES # (AUTO) 0.9 10^3/uL (1.5-3.5); LYMPHOCYTES % (AUTO) 8.2 %; MEAN CORPUSCULAR HEMOGLOBIN 30.2 pg (27.0-31.0); MEAN CORPUSCULAR HGB CONC 30.7 g/dL (32.0-36.0); MEAN CORPUSCULAR VOLUME 98.2 fL (80.0-94.0); MEAN PLATELET VOLUME 10.7 fL (7.4-11.4); MONOCYTES # (AUTO) 0.9 10^3/uL (0.0-1.0); MONOCYTES % (AUTO) 7.9 %; NEUTROPHILS % (AUTO) 81.7 %; PLT - PLATELET COUNT 206 10^3/uL (130-450); RED BLOOD COUNT 3.91 10^6/uL (4.70-6.10); RED CELL DISTRIBUTION WIDTH 18.3 % (12.0-15.0); WHITE BLOOD COUNT 11.1 x10^3/uL (4.8-10.8)
[2019-06-19 05:59] LABS: CALCIUM 8.7 mg/dL (8.5-10.3); CREATININE 0.6 mg/dL (0.6-1.2)
[2019-06-19 08:11] LABS: ALBUMIN 3.2 g/dL (3.2-5.5); BILIRUBIN,DIRECT 0.2 mg/dL (0.1-0.5); TOTAL PROTEIN 7.2 g/dL (6.7-8.2)
--- NOTE | 2019-06-19 08:23 | XRAY Report ---
Reason: fever Procedure Date: 06/19/2019 Accession Number: [id number] / [id number] Procedure: XR - Chest 1 View X-Ray CPT Code: 79773 FULL RESULT: EXAM: CHEST RADIOGRAPHY EXAM DATE: 06/19/2019 08:13 AM. CLINICAL HISTORY: Fever. COMPARISON: CHEST 1 VIEW 06/15/2019 8:59 AM. TECHNIQUE: 1 view. FINDINGS: Lungs/Pleura: No focal opacities evident. No pleural effusion. No pneumothorax. Mediastinum: Within exam limitations, the cardiomediastinal contour is normal. Other: Interval removal of nasogastric tube and endotracheal tube. Previous right shoulder arthroplasty. IMPRESSION: No focal consolidations identified. RADIA
[2019-06-19] MEDS: POLYETHYLENE GLYCOL 3350 17 GM PACKET PO SCH (09:22)
[2019-06-19] MEDS: NICOTINE 14 MG PATCH TOP SCH (09:22)
[2019-06-19] MEDS: CHLORHEXIDINE GLUCONATE 15 ML UDC PO SCH ×2 (09:22→20:41)
[2019-06-19] MEDS: PANTOPRAZOLE 40 MG VIAL IVP SCH ×2 (09:22→20:41)
[2019-06-19] MEDS: PRENATAL VITAMIN TABLET PO SCH (09:23)
[2019-06-19] MEDS: THIAMINE 100 MG TABLET PO SCH (09:23)
[2019-06-19] MEDS: LISINOPRIL 20 MG TABLET PO SCH (09:24)
[2019-06-19 10:50] LABS: BILIRUBIN,URINE NEGATIVE (NEGATIVE); GLUCOSE, URINE (UA) NEGATIVE (NEGATIVE); KETONES,URINE (UA) NEGATIVE (NEGATIVE); LEUKOCYTE ESTERASE, URINE SMALL (NEGATIVE); NITRITE,URINE NEGATIVE (NEGATIVE); OCCULT BLOOD,URINE TRACE-LYSE (NEGATIVE); PROTEIN,URINE NEGATIVE (NEGATIVE); UROBILINOGEN,URINE 1 (NORMAL) E.U./dL (NORMAL)
[2019-06-19 10:53] LABS: CLARITY,URINE HAZY (CLEAR)
[2019-06-19] MEDS ORDERED: cefTRIAXone 2 GM in SODIUM CHLORIDE 0.9% MINIBAG 100 ML IV SCH (11:07)
[2019-06-19 11:20] LABS: BACTERIA,URINE Few /HPF (None Seen); RBC,URINE 0-5 /HPF (0-5); SQUAMOUS EPITHELIAL CELL,UR RARE Squamous (<= Few)
--- NOTE | 2019-06-19 12:45 | PROVIDER PROGRESS NOTE ---
Assessment/Plan - Problem List (1) UTI (urinary tract infection) Assessment/Plan: Last evening at approx 10 pm, the patient spiked a fever. Then fever again today at 0415 to 39.2 degrees C and again at 0900 to 38.4 degrees C. He "felt terrible" and had sweats. He got Tylenol. Today he describes urinary urgency and frequency for the last 24-36 hours, no dysuria, hematuria or pelvic pain. The WBC did increase this am. A U/A was sent and shows (+) leukocyte esterase and bacteria, suggesting UTI Blood cultures were obtained this a.m. Will start iv Rocephin, continue fluids due to fever, check CT abdomen for pyelonephritis or stone/obstruction No discharge today. (2) Tachycardia Assessment/Plan: Yesterday's tachy and orthostatic changes were likely the first signs of the infection and dehydration. Continue iv fluids. Treat the infection (3) Alcohol abuse Assessment/Plan: Thiamine and vitamins ordered. The has arranged for a meeting with counselor on Sat06/22/19 in [place] for him and he is agreeable. (4) Subarachnoid hemorrhage Assessment/Plan: Stable neurologic condition (5) Subdural hemorrhage Assessment/Plan: Stable neurologic condition (6) Falls Assessment/Plan: Improving gait with PT daily (7) Hypokalemia Assessment/Plan: Replaced. Follow BMP daily (8) Macrocytic anemia Assessment/Plan: Stable Hgb He is on vitamin supplements (9) Tobacco dependence Assessment/Plan: No c/o urges on Nicotine patch (10) Malnutrition of moderate degree Assessment/Plan: Appetite and intake have significantly improved during this admission (11) HTN (hypertension) Assessment/Plan: Stable BP on current meds (12) Hyperlipemia Assessment/Plan: Chronic, his statin was restarted when LFTs normalized (13) Airway obstruction Assessment/Plan: Resolved (14) Pancreatitis Assessment/Plan: Resolved (15) Tongue biting Assessment/Plan: resolved (16) Alcohol withdrawal Qualifiers: Complication of substance-induced condition: with unspecified complication Qualified Code(s): F10.239 - Alcohol dependence with withdrawal, unspecified Assessment/Plan: resolved - Current Meds Current Meds: Current Medications Generic Name Dose Route Start Last Admin Trade Name Freq PRN Reason Stop Dose Admin Acetaminophen 650 mg 06/18/19 22:08 06/19/19 08:18 Tylenol PO 650 mg Q4HR PRN Administration Pain or Fever > 38C (100.4F) Amitriptyline HCl 50 mg 06/17/19 21:00 06/18/19 21:10 Elavil PO 50 mg QPM ALBINO Administration Atorvastatin Calcium 10 mg 06/17/19 21:00 06/18/19 21:10 Lipitor PO 10 mg QPM ALBINO Administration Chlorhexidine Gluconate 15 ml 06/14/19 21:00 06/19/19 09:22 Peridex PO 15 ml BID ALBINO Administration Potassium Chloride/Sodium Chloride 1,000 mls @ 60 mls/hr 06/18/19 20:00 21:09 Normal Saline 0.9% W/20 Meq Kcl IV 60 mls/hr .[id number] ALBINO Administration Ceftriaxone Sodium 2 gm/ 100 mls @ 200 mls/hr 06/19/19 11:07 06/19/19 11:38 Sodium Chloride IV 200 mls/hr DAILY ALBINO Administration Lisinopril 10 mg 06/17/19 11:00 06/19/19 09:24 Zestril PO 10 mg DAILY ALBINO Administration Nicotine 1 patch 06/15/19 09:00 06/19/19 09:22 Nicoderm TOP 1 patch DAILY ALBINO Administration Ondansetron HCl 4 mg 06/12/19 23:42 06/13/19 18:23 Zofran Inj IVP 4 mg Q6HR PRN Administration Nausea / Vomiting Pantoprazole Sodium 40 mg 06/13/19 09:00 06/19/19 09:22 Protonix IVP 40 mg BID ALBINO Administration Polyethylene Glycol 17 gm 06/16/19 09:00 06/19/19 09:22 Miralax PO 17 gm DAILY ALBINO Administration Multivit/Folic Acid/Iron 1 tab 06/16/19 12:00 06/19/19 09:23 Trinatal Rx 1 PO 1 tab DAILYWM ALBINO Administration Sodium Chloride 10 ml 06/12/19 23:42 06/17/19 21:15 Normal Saline Flush 0.9% IVP 10 ml PRN PRN Administration NEEDED PER PROVIDER ORDERS Sodium Chloride 10 ml 06/13/19 01:00 06/19/19 09:22 Normal Saline Flush 0.9% IVP 10 ml 0100,0900,1700 ALBINO Administration Thiamine HCl 100 mg 06/16/19 12:00 06/19/19 09:23 Vitamin B-1 PO 100 mg DAILY ALBINO Administration Zolpidem Tartrate 5 mg 06/18/19 22:00 06/18/19 21:10 Ambien PO 5 mg 2199 ALBINO Administration - Lab Result Fish Bone Diagrams: 06/20/19 05:18 06/20/19 05:18 - Additional Planning My Orders: My Active Orders 06/18/19 20:00 Ns W/20 Meq KCl [Normal Saline 0.9% W/20 Meq KCl] 1,000 ml IV 60 mls/hr 06/18/19 22:00 Zolpidem [Ambien] 5 mg PO 0 06/19/19 08:30 CUL, URINE [RM] Urgent 06/19/19 11:07 [id number] [Rocephin] 2 gm Sodium Chloride 0.9% Minibag [Normal Saline 0.9% Minibag] 100 ml IV DAILY Subjective - Subjective Patient Reports: Fever (Had rigors and sweats overnight) Objective Vital Signs: Vital Signs - 24 hr 06/18/19 06/18/19 06/18/19 13:00 17:00 21:00 Temperature 36.8 C 36.2 C L 36.4 C L Heart Rate [ 109 H 93 81 Brachial] Heart Rate [ Radial] Heart Rate [ 114 H Sitting (After 1 Minute)] Heart Rate [ 124 H Standing (After 1 Minute)] Heart Rate [ 100 Supine] Respiratory 18 19 16 Rate Blood Pressure 138/79 H 147/68 H [Left Brachial artery] Blood Pressure 166/89 H [Right Brachial artery] Blood Pressure 132/78 H [Sitting (After 1 Minute)] Blood Pressure 122/74 [Standing ( After 1 Minute) ] Blood Pressure 138/79 H [Supine] O2 Saturation 98 99 98 06/18/19 06/19/19 06/19/19 23:44 04:15 05:39 Temperature 37.6 C H 39.2 C H 38.7 C H Heart Rate [ Brachial] Heart Rate [ 81 81 Radial] Heart Rate [ Sitting (After 1 Minute)] Heart Rate [ Standing (After 1 Minute)] Heart Rate [ Supine] Respiratory 22 16 Rate Blood Pressure [Left Brachial artery] Blood Pressure 145/83 H 173/97 H 125/80 [Right Brachial artery] Blood Pressure [Sitting (After 1 Minute)] Blood Pressure [Standing ( After 1 Minute) ] Blood Pressure [Supine] O2 Saturation 95 98 06/19/19 06/19/19 06/19/19 08:10 09:00 09:21 Temperature 38.4 C H 38.4 C H 37.7 C H Heart Rate [ Brachial] Heart Rate [ 101 H 101 H Radial] Heart Rate [ 94 Sitting (After 1 Minute)] Heart Rate [ 85 Standing (After 1 Minute)] Heart Rate [ 98 Supine] Respiratory 16 16 Rate Blood Pressure [Left Brachial artery] Blood Pressure 135/78 H 135/78 H [Right Brachial artery] Blood Pressure 116/68 [Sitting (After 1 Minute)] Blood Pressure 114/66 [Standing ( After 1 Minute) ] Blood Pressure 117/98 H [Supine] O2 Saturation 95 95 Oxygen O2 Source Room air I&O (Last 24 Hrs): Intake and Output Totals x24h 06/17/19 06/18/19 06/19/19 23:59 23:59 23:59 Intake Total 690 2250 360 Output Total 1950 1350 1625 Balance -1260 900 -1265 General: Alert, Oriented x3 HEENT: Mucous membr. moist/pink Neck: Supple, No JVD Neuro: Alert, Non Focal, Oriented Times 3 Cardiovascular: Regular rate Respiratory: No respiratory distress Abdomen: Normal bowel sounds, Soft Extremities: No edema, Other (No rash) - Results Results: Laboratory Results WBC 11.1 x10^3/uL (4.8-10.8) H 06/19/19 04:45 RBC 3.91 10^6/uL (4.70-6.10) L 06/19/19 04:45 Hgb 11.8 g/dL (14.0-18.0) L 06/19/19 04:45 Hct 38.4 % (42.0-52.0) L 06/19/19 04:45 MCV 98.2 fL (80.0-94.0) H 06/19/19 04:45 MCH 30.2 pg (27.0-31.0) 06/19/19 04:45 MCHC 30.7 g/dL (32.0-36.0) L 06/19/19 04:45 RDW 18.3 % (12.0-15.0) H 06/19/19 04:45 Plt Count 206 10^3/uL (130-450) 06/19/19 04:45 MPV 10.7 fL (7.4-11.4) 06/19/19 04:45 Neut # (Auto) 9.0 10^3/uL (1.5-6.6) H 06/19/19 04:45 Lymph # (Auto) 0.9 10^3/uL (1.5-3.5) L 06/19/19 04:45 [place] # (Auto) 0.9 10^3/uL (0.0-1.0) 06/19/19 04:45 Eos # (Auto) 0.1 10^3/uL (0.0-0.7) 06/19/19 04:45 Baso # (Auto) 0.1 10^3/uL (0.0-0.1) 06/19/19 04:45 Absolute Nucleated RBC 0.00 x10^3/uL 06/19/19 04:45 Nucleated RBC % 0.0 /100WBC 06/19/19 04:45 Manual Slide Review Indicated 06/13/19 07:45 Platelet Estimate NORMAL (130-450,000) (NORMAL) 06/12/19 20:21 Platelet Morphology NORMAL APPEARANCE (NORMAL) 06/12/19 20:21 RBC Morph Micro Appear 2+ ANISOCYTOSIS (NORMAL) 1+ MICROCYTOSIS (NORMAL) 1+ HYPOCHROMASIA (NORMAL) 06/12/19 20:21 RBC Morph Micro Appear 2+ ANISOCYTOSIS (NORMAL) 1+ MICROCYTOSIS (NORMAL) 1+ HYPOCHROMASIA (NORMAL) 06/12/19 20:21 RBC Morph Micro Appear 1+ ANISOCYTOSIS (NORMAL) 06/13/19 07:45 PT 12.7 secs (9.9-12.6) H 06/16/19 10:35 INR 1.1 (0.8-1.2) 06/16/19 10:35 Bld Gas Analysis Time 0540 06/15/19 05:23 Sample Site LEFT RADIAL 06/15/19 05:23 ABG pH 7.41 (7.35-7.45) 06/15/19 05:23 ABG pCO2 38 mmHg (34-45) 06/15/19 05:23 ABG pO2 95 mmHg (80-100) 06/15/19 05:23 ABG HCO3 23.6 mmol/L (22.0-26.0) 06/15/19 05:23 ABG Total CO2 24.8 MMOL/L (21.0-29.0) 06/15/19 05:23 ABG O2 Saturation 97 % (94-98) 06/15/19 05:23 ABG Base Excess -0.8 mmol/L (-2.0-3.0) 06/15/19 05:23 Brian Test POSITIVE 06/15/19 05:23 Respiration Rate 12 b/min 06/15/19 05:23 O2 Delivery Device VENTILATOR 06/15/19 05:23 Vent Mode SIMV 06/15/19 05:23 FiO2 28.00 06/15/19 05:23 Tidal Volume 600 mL 06/15/19 05:23 PEEP 5 cmH2O 06/15/19 05:23 Pressure Support Vent 10 cmH2O 06/15/19 05:23 Sodium 135 mmol/L (135-145) 06/19/19 05:40 Potassium 3.5 mmol/L (3.5-5.0) 06/19/19 05:40 Chloride 103 mmol/L (101-111) 06/19/19 05:40 Carbon Dioxide 21 mmol/L (21-32) 06/19/19 05:40 Anion Gap 11.0 (6-13) 06/19/19 05:40 BUN 9 mg/dL (6-20) 06/19/19 05:40 Creatinine 0.6 mg/dL (0.6-1.2) 06/19/19 05:40 Estimated GFR (MDRD) 140 (>89) 06/19/19 05:40 Glucose 157 mg/dL (70-100) H 06/19/19 05:40 Calcium 8.7 mg/dL (8.5-10.3) 06/19/19 05:40 Phosphorus 2.1 mg/dL (2.5-4.6) L 06/16/19 10:35 Magnesium 1.8 mg/dL (1.7-2.8) 06/17/19 04:55 Total Bilirubin 1.0 mg/dL (0.2-1.0) 06/19/19 04:55 Direct Bilirubin 0.2 mg/dL (0.1-0.5) 06/19/19 04:55 AST 43 IU/L (10-42) H 06/19/19 04:55 ALT 50 IU/L (10-60) 06/19/19 04:55 Alkaline Phosphatase 92 IU/L (42-121) 06/19/19 04:55 Troponin I High Sens 252.7 pg/mL (2.3-19.7) H* 06/14/19 05:05 Total Protein 7.2 g/dL (6.7-8.2) 06/19/19 04:55 Albumin 3.2 g/dL (3.2-5.5) 06/19/19 04:55 Globulin 4.0 g/dL (2.1-4.2) 06/19/19 04:55 Albumin/Globulin Ratio 1.0 (1.0-2.2) 06/16/19 10:35 Triglycerides 95 mg/dL (-149) 06/13/19 00:15 Cholesterol 240 mg/dL (-199) H 06/13/19 00:15 LDL Cholesterol, Calc 129 mg/dL (-129) 06/13/19 00:15 VLDL Cholesterol 19 mg/dL 06/13/19 00:15 HDL Cholesterol 92 mg/dL (60-) 06/13/19 00:15 LDL/HDL Ratio 1.4 (<3.6) 06/13/19 00:15 Cholesterol/HDL Ratio 2.6 (<5.0) 06/13/19 00:15 Lipase 112 U/L (22-51) H 06/17/19 04:55 Urine Color YELLOW 06/19/19 08:30 Urine Clarity HAZY (CLEAR) 06/19/19 08:30 Urine pH 7.0 PH (5.0-7.5) 06/19/19 08:30 Ur Specific [place] 1.010 (1.002-1.030) 06/19/19 08:30 Urine Protein NEGATIVE mg/dL (NEGATIVE) 06/19/19 08:30 Urine Glucose (UA) NEGATIVE mg/dL (NEGATIVE) 06/19/19 08:30 Urine Ketones NEGATIVE mg/dL (NEGATIVE) 06/19/19 08:30 Urine Occult Blood TRACE-LYSE (NEGATIVE) 06/19/19 08:30 Urine Nitrite NEGATIVE (NEGATIVE) 06/19/19 08:30 Urine Bilirubin NEGATIVE (NEGATIVE) 06/19/19 08:30 Urine Urobilinogen 1 (NORMAL) E.U./dL (NORMAL) 06/19/19 08:30 Ur Leukocyte Esterase SMALL (NEGATIVE) H 06/19/19 08:30 Urine RBC 0-5 /HPF (0-5) 06/19/19 08:30 Urine WBC 11-25 /HPF (0-3) H 06/19/19 08:30 Ur Squamous Epith Cells RARE Squamous (<= Few) 06/19/19 08:30 Urine Bacteria Few /HPF (None Seen) 06/19/19 08:30 Ur Microscopic Review INDICATED 06/19/19 08:30 Urine Culture Comments INDICATED 06/19/19 08:30 Nasal Screen MRSA (PCR) NEGATIVE (NEGATIVE) 06/15/19 08:40 Stl Occult Blood (IFOB) POSITIVE (NEGATIVE) A 06/13/19 01:59 Ethyl Alcohol 382.8 mg/dL 06/12/19 20:21 Blood Type O POSITIVE 06/13/19 07:45 Antibody Screen NEGATIVE 06/13/19 07:45 - Procedures Procedures: Procedures PARTIAL SHOULDER REPLACEMENT (04/28/13)
[2019-06-19] MEDS: NS W/20 MEQ KCL 1,000 ML IV SCH (15:38)
[2019-06-19] MEDS: SODIUM CHLORIDE FLUSH 0.9% 10 ML SYRINGE IVP PRN ×2 (20:41→21:51)
[2019-06-19] MEDS: AMITRIPTYLINE 25 MG TABLET PO SCH (20:42)
[2019-06-19] MEDS: ATORVASTATIN 10 MG TABLET PO SCH (20:42)
[2019-06-19] MEDS ORDERED: IOVERSOL 320 100 ML VIAL IVP ONE ×2 (21:17→21:56)
[2019-06-19] MEDS: ZOLPIDEM 5 MG TABLET PO SCH (21:51)
--- NOTE | 2019-06-19 22:30 | CT Report ---
Reason: fever, UTI. ?pyelo or stones Procedure Date: 06/19/2019 Accession Number: [id number] / [id number] Procedure: CT - Abdomen/Pelvis W CPT Code: FULL RESULT: EXAM: CT ABDOMEN AND PELVIS EXAM DATE: 06/19/2019 09:54 PM. CLINICAL HISTORY: Fever, UTI. ? pyelonephritis or stones. COMPARISONS: ABDOMEN/PELVIS W/ 01/22/2017. TECHNIQUE: Routine helical CT imaging was performed through the abdomen and pelvis. IV contrast: OPTI 320 100ML. Enteric contrast: No. Reconstructions: Coronal and sagittal. In accordance with CT protocol optimization, one or more of the following dose reduction techniques were utilized for this exam: automated exposure control, adjustment of mA and/or KV based on patient size, or use of iterative reconstructive technique. FINDINGS: Lung Bases: Unremarkable. Liver: Normal. No masses. Gallbladder/Bile Ducts: The gallbladder is contracted. No evidence of cholecystitis or bile duct obstruction. Spleen: Normal. Pancreas: Normal. Adrenal Glands: Normal. Kidneys: Stable, small bilateral renal cysts. No stones or hydronephrosis. No evidence of pyelonephritis. Peritoneal Cavity/Bowel: Diverticulosis without evidence of diverticulitis. No small-bowel obstruction. No free air or fluid collections. No mesenteric lymphadenopathy. There is a small fat-containing umbilical hernia. The appendix is well visualized and normal. Pelvic Organs: There is circumferential urinary bladder wall thickening. No bladder stones. Vasculature: No aneurysms or other significant abnormality. Bones: No significant abnormality. Other: None. IMPRESSION: 1. Thickened urinary bladder, which may be secondary to cystitis or hypertrophic changes related to chronic outlet obstruction. 2. No upper urinary tract stones, obstructive changes or pyelonephritis. 3. Diverticulosis. 4. Small fat-containing umbilical hernia. [facility]
[2019-06-20] MEDS: ACETAMINOPHEN 325 MG TABLET PO PRN ×3 (00:22→21:57)
[2019-06-20] MEDS: SODIUM CHLORIDE FLUSH 0.9% 10 ML SYRINGE IVP SCH ×3 (01:29→15:36)
[2019-06-20 05:25] LABS: BASOPHILS % (AUTO) 0.8 %; EOSINOPHILS % (AUTO) 1.6 %; HGB - HEMOGLOBIN 11.5 g/dL (14.0-18.0); LYMPHOCYTES % (AUTO) 11.8 %; MEAN CORPUSCULAR HEMOGLOBIN 31.3 pg (27.0-31.0); MEAN CORPUSCULAR HGB CONC 32.4 g/dL (32.0-36.0); MEAN CORPUSCULAR VOLUME 96.7 fL (80.0-94.0); MEAN PLATELET VOLUME 10.4 fL (7.4-11.4); MONOCYTES % (AUTO) 14.8 %; NEUTROPHILS % (AUTO) 70.3 %; PLT - PLATELET COUNT 210 10^3/uL (130-450); RED BLOOD COUNT 3.67 10^6/uL (4.70-6.10); RED CELL DISTRIBUTION WIDTH 17.8 % (12.0-15.0); WHITE BLOOD COUNT 12.8 x10^3/uL (4.8-10.8)
[2019-06-20 05:31] LABS: ABNORMAL LYMPHS % (MANUAL) 0 %; BAND NEUTROPHILS % (MANUAL) 0 %
[2019-06-20 05:33] LABS: CALCIUM 9.1 mg/dL (8.5-10.3); CREATININE 0.6 mg/dL (0.6-1.2)
[2019-06-20] MEDS: NS W/20 MEQ KCL 1,000 ML IV SCH ×2 (05:45→08:51)
[2019-06-20 05:48] LABS: EOSINOPHILS # (MANUAL) 0.3 10^3/uL (0-0.7); LYMPHOCYTES # (MANUAL) 0.6 10^3/uL (1.5-3.5); LYMPHOCYTES % (MANUAL) 5 %; MONOCYTES # (MANUAL) 1.7 10^3/uL (0.0-1.0)
[2019-06-20 05:49] LABS: DIFFERENTIAL COMMENT MANUAL DIFFERENTIAL; PLATELET ESTIMATE, MANUAL NORMAL (130-450,000) (NORMAL); PLATELET MORPHOLOGY NORMAL APPEARANCE (NORMAL); RBC MORPHOLOGY (MULTIPLE) NORMAL APPEARANCE (NORMAL)
--- NOTE | 2019-06-20 07:58 | PROVIDER PROGRESS NOTE ---
Art Coordinator Note - Art Coordinator Note Art Coordinator Note: I examined the patient this morning because he has been febrile, shivering and diaphoretic intermittently through out the night. Despite tylenol and being on antibiotics. His WBC has been slowly increasing over the past couple of days. There has been no growth on urine or blood cultures. A complete body exam was unremarkable for any wounds, abscess, redness or swelling. Dental exam was unremarkable for any abscess. Prostate exam though felt slightly enlarged, it was unremarkable for any hardness, roughness, bumps or irregularities. His mentation is intact and he does not appear to be in any distress. The patient's antibiotics were changed from rocephin to cefepime.
[2019-06-20] MEDS: PANTOPRAZOLE 40 MG VIAL IVP SCH ×2 (08:52→20:47)
[2019-06-20] MEDS: PRENATAL VITAMIN TABLET PO SCH (08:53)
[2019-06-20] MEDS: THIAMINE 100 MG TABLET PO SCH (08:53)
[2019-06-20] MEDS: LISINOPRIL 20 MG TABLET PO SCH (08:53)
[2019-06-20] MEDS: CHLORHEXIDINE GLUCONATE 15 ML UDC PO SCH ×2 (08:53→20:47)
[2019-06-20] MEDS: POLYETHYLENE GLYCOL 3350 17 GM PACKET PO SCH (08:53)
[2019-06-20] MEDS: NICOTINE 14 MG PATCH TOP SCH (08:53)
[2019-06-20] MEDS: CEFEPIME 2 GM in SODIUM CHLORIDE 0.9% MINIBAG 100 ML IV SCH ×2 (14:22→21:55)
--- NOTE | 2019-06-20 15:49 | PROVIDER PROGRESS NOTE ---
Assessment/Plan - Problem List (1) UTI (urinary tract infection) Assessment/Plan: The blood cultures are neg thus far. The urine is growing a Gram Neg Luis Fernando, which could be possible Pseudomonas species. Rocephin is therefore not appropriate for Pseudomonas. The WBC did increase from 11 yesterday to [address] abdomen did not show any stones, obstruction, hydronephrosis or pyelonephritis. Will change iv Rocephin to iv Cefipime, since fevers continued on Rocephin. Continue gentle hydration, since fevers continue. Await ID of urine culture bacteria. The and daughter were updated about the current findings and plan for 2-3 weeks total course of antibiotics that will be necessary. No Nmh home yet today. (2) Tachycardia Assessment/Plan: He still got tachy to 100-105, when spiked a fever, but no further HRs of 140, like 2 days ago. Continue gentle hydration and tx infection. (3) Alcohol abuse Assessment/Plan: Thiamine and vitamins ordered. The has arranged for a meeting with counselor on Sat06/22/19 in [place] for him and he is agreeable. (4) Subarachnoid hemorrhage Assessment/Plan: Stable neuro status (5) Subdural hemorrhage Assessment/Plan: Stable neuro status (6) Falls Assessment/Plan: Slow improvements daily with PT (7) Macrocytic anemia Assessment/Plan: Stable Hgb He is on supplements (8) Tobacco dependence Assessment/Plan: Continue Nicotine patch (9) Malnutrition of moderate degree Assessment/Plan: Appetite and intake have normalized (10) HTN (hypertension) Assessment/Plan: Stable BP on current meds and management (11) Hyperlipemia Assessment/Plan: Chronic, statin was restarted when LFTs normalized days ago. (12) Airway obstruction Assessment/Plan: Resolved (13) Pancreatitis Assessment/Plan: Resolved (14) Tongue biting Assessment/Plan: Resolved (15) Alcohol withdrawal Qualifiers: Complication of substance-induced condition: with unspecified complication Qualified Code(s): F10.239 - Alcohol dependence with withdrawal, unspecified Assessment/Plan: Resolved (16) Hypokalemia Assessment/Plan: Resolved after replacement - Current Meds Current Meds: Current Medications Generic Name Dose Route Start Last Admin Trade Name Freq PRN Reason Stop Dose Admin Acetaminophen 650 mg 06/18/19 22:08 06/20/19 00:22 Tylenol PO 650 mg Q4HR PRN Administration Pain or Fever > 38C (100.4F) Amitriptyline HCl 50 mg 06/17/19 21:00 06/19/19 20:42 Elavil PO 50 mg QPM ALBINO Administration Atorvastatin Calcium 10 mg 06/17/19 21:00 06/19/19 20:42 Lipitor PO 10 mg QPM ALBINO Administration Chlorhexidine Gluconate 15 ml 06/14/19 21:00 06/20/19 08:53 Peridex PO 15 ml BID ALBINO Administration Potassium Chloride/Sodium Chloride 1,000 mls @ 60 mls/hr 06/18/19 20:00 06/20/19 08:51 Normal Saline 0.9% W/20 Meq Kcl IV 60 mls/hr .[id number] ALBINO Administration Cefepime HCl 2 gm/ Sodium 100 mls @ 200 mls/hr 06/20/19 14:00 06/20/19 15:12 Chloride IV Infused TID ALBINO Infusion Lisinopril 10 mg 06/17/19 11:00 06/20/19 08:53 Zestril PO 10 mg DAILY ALBINO Administration Nicotine 1 patch 06/15/19 09:00 06/20/19 08:53 Nicoderm TOP 1 patch DAILY ALBINO Administration Ondansetron HCl 4 mg 06/12/19 23:42 06/13/19 18:23 Zofran Inj IVP 4 mg Q6HR PRN Administration Nausea / Vomiting Pantoprazole Sodium 40 mg 06/13/19 09:00 06/20/19 08:52 Protonix IVP 40 mg BID ALBINO Administration Polyethylene Glycol 17 gm 06/16/19 09:00 06/20/19 08:53 Miralax PO 17 gm DAILY ALBINO Administration Multivit/Folic Acid/Iron 1 tab 06/16/19 12:00 06/20/19 08:53 Trinatal Rx 1 PO 1 tab DAILYWM ALBINO Administration Sodium Chloride 10 ml 06/12/19 23:42 06/19/19 21:51 Normal Saline Flush 0.9% IVP 10 ml PRN PRN Administration NEEDED PER PROVIDER ORDERS Sodium Chloride 10 ml 06/13/19 01:00 06/20/19 15:36 Normal Saline Flush 0.9% IVP 10 ml 0100,0900,1700 ALBINO Administration Thiamine HCl 100 mg 06/16/19 12:00 06/20/19 08:53 Vitamin B-1 PO 100 mg DAILY ALBINO Administration Zolpidem Tartrate 5 mg 06/18/19 22:00 06/19/19 21:51 Ambien PO 5 mg 2200 ALBINO Administration - Lab Result Fish Bone Diagrams: 06/20/19 05:18 06/20/19 05:18 Subjective - Subjective Patient Reports: Fever (Had rogors and sweats overnight still) Objective Vital Signs: Vital Signs - 24 hr 06/19/19 06/19/19 06/20/19 17:00 20:25 00:00 Temperature 37.6 C H 37.6 C H 39 C H Heart Rate [ 72 Brachial] Heart Rate [ Monitoring electrodes] Heart Rate [ 68 79 Radial] Heart Rate [ Sitting (After 1 Minute)] Heart Rate [ Standing (After 1 Minute)] Heart Rate [ Supine] Respiratory 16 16 18 Rate Blood Pressure 123/83 H 136/88 H 130/66 [Right Brachial artery] Blood Pressure [Sitting (After 1 Minute)] Blood Pressure [Standing ( After 1 Minute) ] Blood Pressure [Supine] O2 Saturation 99 98 93 06/20/19 06/20/19 06/20/19 01:33 02:59 05:22 Temperature 38.1 C H 37.4 C 37.7 C H Heart Rate [ 67 Brachial] Heart Rate [ 66 Monitoring electrodes] Heart Rate [ Radial] Heart Rate [ Sitting (After 1 Minute)] Heart Rate [ Standing (After 1 Minute)] Heart Rate [ Supine] Respiratory 18 16 Rate Blood Pressure 111/55 L [Right Brachial artery] Blood Pressure [Sitting (After 1 Minute)] Blood Pressure [Standing ( After 1 Minute) ] Blood Pressure [Supine] O2 Saturation 93 06/20/19 06/20/19 06/20/19 07:48 09:00 11:50 Temperature 37.7 C H 38 C H Heart Rate [ Brachial] Heart Rate [ 85 94 Monitoring electrodes] Heart Rate [ Radial] Heart Rate [ 96 Sitting (After 1 Minute)] Heart Rate [ 87 Standing (After 1 Minute)] Heart Rate [ 110 H Supine] Respiratory 14 14 Rate Blood Pressure 109/55 L 134/84 H [Right Brachial artery] Blood Pressure 120/89 H [Sitting (After 1 Minute)] Blood Pressure 130/67 [Standing ( After 1 Minute) ] Blood Pressure 113/68 [Supine] O2 Saturation 96 96 Oxygen O2 Source Room air I&O (Last 24 Hrs): Intake and Output Totals x24h 06/18/19 06/19/19 06/20/19 23:59 23:59 23:59 Intake Total 2250 2400 1688 Output Total 1350 2095 1400 Balance 900 305 288 General: Alert, No acute distress HEENT: Mucous membr. moist/pink Neck: Supple, No JVD Neuro: Alert, Non Focal, Oriented Times 3, Other (No nystagmus) Cardiovascular: Regular rate, No murmurs Respiratory: No respiratory distress Abdomen: Normal bowel sounds, Soft Extremities: No edema - Results Results: Laboratory Results WBC 12.8 x10^3/uL (4.8-10.8) H 06/20/19 05:18 RBC 3.67 10^6/uL (4.70-6.10) L 06/20/19 05:18 Hgb 11.5 g/dL (14.0-18.0) L 06/20/19 05:18 Hct 35.5 % (42.0-52.0) L 06/20/19 05:18 MCV 96.7 fL (80.0-94.0) H 06/20/19 05:18 MCH 31.3 pg (27.0-31.0) H 06/20/19 05:18 MCHC 32.4 g/dL (32.0-36.0) 06/20/19 05:18 RDW 17.8 % (12.0-15.0) H 06/20/19 05:18 Plt Count 210 10^3/uL (130-450) 06/20/19 05:18 MPV 10.4 fL (7.4-11.4) 06/20/19 05:18 Neut # (Auto) Not Reportable 06/20/19 05:18 Lymph # (Auto) Not Reportable 06/20/19 05:18 [place] # (Auto) Not Reportable 06/20/19 05:18 Eos # (Auto) Not Reportable 06/20/19 05:18 Baso # (Auto) Not Reportable 06/20/19 05:18 Absolute Nucleated RBC Not Reportable 06/20/19 05:18 Total Counted 100 06/20/19 05:18 Band Neuts % (Manual) 0 % (0-10) 06/20/19 05:18 Abnorm Lymph % (Manual) 0 % 06/20/19 05:18 Nucleated RBC % Not Reportable 06/20/19 05:18 Neutrophils # (Manual) 10.2 10^3/uL (1.5-6.6) H 06/20/19 05:18 Lymphocytes # (Manual) 0.6 10^3/uL (1.5-3.5) L 06/20/19 05:18 Monocytes # (Manual) 1.7 10^3/uL (0.0-1.0) H 06/20/19 05:18 Eosinophils # (Manual) 0.3 10^3/uL (0-0.7) 06/20/19 05:18 Basophils # (Manual) 0.0 10^3/uL (0-0.1) 06/20/19 05:18 Differential Comment MANUAL DIFFERENTIAL 06/20/19 05:18 Manual Slide Review Indicated 06/13/19 07:45 WBC Morphology NORMAL APPEARANCE (NORMAL) 06/20/19 05:18 Platelet Estimate NORMAL (130-450,000) (NORMAL) 06/20/19 05:18 Platelet Morphology NORMAL APPEARANCE (NORMAL) 06/20/19 05:18 RBC Morph Micro Appear 2+ ANISOCYTOSIS (NORMAL) 1+ MICROCYTOSIS (NORMAL) 1+ HYPOCHROMASIA (NORMAL) 06/12/19 20:21 RBC Morph Micro Appear 1+ ANISOCYTOSIS (NORMAL) 06/13/19 07:45 RBC Morph Micro Appear NORMAL APPEARANCE (NORMAL) 06/20/19 05:18 PT 12.7 secs (9.9-12.6) H 06/16/19 10:35 INR 1.1 (0.8-1.2) 06/16/19 10:35 Bld Gas Analysis Time 0540 06/15/19 05:23 Sample Site LEFT RADIAL 06/15/19 05:23 ABG pH 7.41 (7.35-7.45) 06/15/19 05:23 ABG pCO2 38 mmHg (34-45) 06/15/19 05:23 ABG pO2 95 mmHg (80-100) 06/15/19 05:23 ABG HCO3 23.6 mmol/L (22.0-26.0) 06/15/19 05:23 ABG Total CO2 24.8 MMOL/L (21.0-29.0) 06/15/19 05:23 ABG O2 Saturation 97 % (94-98) 06/15/19 05:23 ABG Base Excess -0.8 mmol/L (-2.0-3.0) 06/15/19 05:23 Brian Test POSITIVE 06/15/19 05:23 Respiration Rate 12 b/min 06/15/19 05:23 O2 Delivery Device VENTILATOR 06/15/19 05:23 Vent Mode SIMV 06/15/19 05:23 FiO2 28.00 06/15/19 05:23 Tidal Volume 600 mL 06/15/19 05:23 PEEP 5 cmH2O 06/15/19 05:23 Pressure Support Vent 10 cmH2O 06/15/19 05:23 Sodium 138 mmol/L (135-145) 06/20/19 05:18 Potassium 3.8 mmol/L (3.5-5.0) 06/20/19 05:18 Chloride 106 mmol/L (101-111) 06/20/19 05:18 Carbon Dioxide 22 mmol/L (21-32) 06/20/19 05:18 Anion Gap 10.0 (6-13) 06/20/19 05:18 BUN 9 mg/dL (6-20) 06/20/19 05:18 Creatinine 0.6 mg/dL (0.6-1.2) 06/20/19 05:18 Estimated GFR (MDRD) 140 (>89) 06/20/19 05:18 Glucose 169 mg/dL (70-100) H 06/20/19 05:18 Lactic Acid 1.2 mmol/L (0.5-2.2) 06/19/19 13:10 Calcium 9.1 mg/dL (8.5-10.3) 06/20/19 05:18 Phosphorus 2.1 mg/dL (2.5-4.6) L 06/16/19 10:35 Magnesium 1.8 mg/dL (1.7-2.8) 06/17/19 04:55 Total Bilirubin 1.0 mg/dL (0.2-1.0) 06/19/19 04:55 Direct Bilirubin 0.2 mg/dL (0.1-0.5) 06/19/19 04:55 AST 43 IU/L (10-42) H 06/19/19 04:55 ALT 50 IU/L (10-60) 06/19/19 04:55 Alkaline Phosphatase 92 IU/L (42-121) 06/19/19 04:55 Troponin I High Sens 252.7 pg/mL (2.3-19.7) H* 06/14/19 05:05 Total Protein 7.2 g/dL (6.7-8.2) 06/19/19 04:55 Albumin 3.2 g/dL (3.2-5.5) 06/19/19 04:55 Globulin 4.0 g/dL (2.1-4.2) 06/19/19 04:55 Albumin/Globulin Ratio 1.0 (1.0-2.2) 06/16/19 10:35 Triglycerides 95 mg/dL (-149) 06/13/19 00:15 Cholesterol 240 mg/dL (-199) H 06/13/19 00:15 LDL Cholesterol, Calc 129 mg/dL (-129) 06/13/19 00:15 VLDL Cholesterol 19 mg/dL 06/13/19 00:15 HDL Cholesterol 92 mg/dL (60-) 06/13/19 00:15 LDL/HDL Ratio 1.4 (<3.6) 06/13/19 00:15 Cholesterol/HDL Ratio 2.6 (<5.0) 06/13/19 00:15 Lipase 112 U/L (22-51) H 06/17/19 04:55 Urine Color YELLOW 06/19/19 08:30 Urine Clarity HAZY (CLEAR) 06/19/19 08:30 Urine pH 7.0 PH (5.0-7.5) 06/19/19 08:30 Ur Specific [place] 1.010 (1.002-1.030) 06/19/19 08:30 Urine Protein NEGATIVE mg/dL (NEGATIVE) 06/19/19 08:30 Urine Glucose (UA) NEGATIVE mg/dL (NEGATIVE) 06/19/19 08:30 Urine Ketones NEGATIVE mg/dL (NEGATIVE) 06/19/19 08:30 Urine Occult Blood TRACE-LYSE (NEGATIVE) 06/19/19 08:30 Urine Nitrite NEGATIVE (NEGATIVE) 06/19/19 08:30 Urine Bilirubin NEGATIVE (NEGATIVE) 06/19/19 08:30 Urine Urobilinogen 1 (NORMAL) E.U./dL (NORMAL) 06/19/19 08:30 Ur Leukocyte Esterase SMALL (NEGATIVE) H 06/19/19 08:30 Urine RBC 0-5 /HPF (0-5) 06/19/19 08:30 Urine WBC 11-25 /HPF (0-3) H 06/19/19 08:30 Ur Squamous Epith Cells RARE Squamous (<= Few) 06/19/19 08:30 Urine Bacteria Few /HPF (None Seen) 06/19/19 08:30 Ur Microscopic Review INDICATED 06/19/19 08:30 Urine Culture Comments INDICATED 06/19/19 08:30 Nasal Screen MRSA (PCR) NEGATIVE (NEGATIVE) 06/15/19 08:40 Stl Occult Blood (IFOB) POSITIVE (NEGATIVE) A 06/13/19 01:59 Ethyl Alcohol 382.8 mg/dL 06/12/19 20:21 Blood Type O POSITIVE 06/13/19 07:45 Antibody Screen NEGATIVE 06/13/19 07:45 - Procedures Procedures: Procedures PARTIAL SHOULDER REPLACEMENT (04/28/13)
[2019-06-20] MEDS: AMITRIPTYLINE 25 MG TABLET PO SCH (20:47)
[2019-06-20] MEDS: ATORVASTATIN 10 MG TABLET PO SCH (20:47)
[2019-06-20] MEDS: SODIUM CHLORIDE FLUSH 0.9% 10 ML SYRINGE IVP PRN (20:47)
[2019-06-20] MEDS: ZOLPIDEM 5 MG TABLET PO SCH (21:55)
[2019-06-21] MEDS: NS W/20 MEQ KCL 1,000 ML IV SCH (03:29)
[2019-06-21] MEDS: SODIUM CHLORIDE FLUSH 0.9% 10 ML SYRINGE IVP SCH ×3 (03:30→16:19)
[2019-06-21] MEDS: ACETAMINOPHEN 325 MG TABLET PO PRN ×2 (04:19→16:17)
[2019-06-21 04:54] LABS: BASOPHILS % (AUTO) 0.8 %; EOSINOPHILS % (AUTO) 1.4 %; LYMPHOCYTES % (AUTO) 9.4 %; MEAN CORPUSCULAR HEMOGLOBIN 30.1 pg (27.0-31.0); MEAN CORPUSCULAR HGB CONC 31.2 g/dL (32.0-36.0); MEAN CORPUSCULAR VOLUME 96.7 fL (80.0-94.0); MEAN PLATELET VOLUME 10.6 fL (7.4-11.4); MONOCYTES % (AUTO) 16.4 %; NEUTROPHILS % (AUTO) 71.1 %; PLT - PLATELET COUNT 226 10^3/uL (130-450); RED BLOOD COUNT 3.65 10^6/uL (4.70-6.10); RED CELL DISTRIBUTION WIDTH 17.8 % (12.0-15.0); WHITE BLOOD COUNT 9.8 x10^3/uL (4.8-10.8)
[2019-06-21 04:57] LABS: ABNORMAL LYMPHS % (MANUAL) 0 %; BAND NEUTROPHILS % (MANUAL) 0 %
[2019-06-21 05:06] LABS: CALCIUM 8.9 mg/dL (8.5-10.3); CREATININE 0.7 mg/dL (0.6-1.2)
[2019-06-21 05:19] LABS: BASOPHILS # (MANUAL) 0.2 10^3/uL (0-0.1); BASOPHILS % (MANUAL) 2 %; EOSINOPHILS # (MANUAL) 0.1 10^3/uL (0-0.7); LYMPHOCYTES # (MANUAL) 1.1 10^3/uL (1.5-3.5); LYMPHOCYTES % (MANUAL) 11 %; MONOCYTES # (MANUAL) 1.6 10^3/uL (0.0-1.0); RBC MORPHOLOGY (MULTIPLE) NORMAL APPEARANCE (NORMAL)
[2019-06-21 05:20] LABS: PLATELET ESTIMATE, MANUAL NORMAL (130-450,000) (NORMAL)
[2019-06-21 05:21] LABS: DIFFERENTIAL COMMENT MANUAL DIFFERENTIAL; PLATELET MORPHOLOGY 1+ LARGE P (NORMAL)
[2019-06-21] MEDS: CEFEPIME 2 GM in SODIUM CHLORIDE 0.9% MINIBAG 100 ML IV SCH ×3 (06:11→21:55)
--- NOTE | 2019-06-21 08:40 | PROVIDER PROGRESS NOTE ---
Assessment/Plan - Problem List (1) Klebsiella cystitis Assessment/Plan: The gram neg pernell has been IDd as Klebsiella. It is sensitive to Cefepime. He had a fever spike about 12 hours ago. The WBC is declining. Would like to see him afebrile for 24 hours. Will plan to [facility] home tomorrow on oral agent. He will get a 2-3 week oral antibiotic course, unless any of the blood cultures turn positive, then he would need iv antibiotics. This was all reviewed and explained to the patient, and daughter in his room. (2) Alcohol abuse Assessment/Plan: He is getting Thiamine and multi-vitamin. His appointment with alcohol counselor is scheduled for tomorrow at 1pm as an outpat. SW will let them know that he is still an inpatient today. (3) Subarachnoid hemorrhage Assessment/Plan: Stable neuro status. Today was the first time he walked in the hallway. (4) Subdural hemorrhage Assessment/Plan: as in #3 (5) Falls Assessment/Plan: As in #3 (6) Macrocytic anemia Assessment/Plan: He is getting supplement replacements (7) Tobacco dependence Assessment/Plan: The patient requested that his Nicotine patch be stopped today "because it makes his lip numb". Patch was stopped (8) Malnutrition of moderate degree Assessment/Plan: Will advance to a regular diet and stop the soft mechanical diet that was ordered for tongue healing. (9) HTN (hypertension) Assessment/Plan: Stable on current meds (10) Hyperlipemia Assessment/Plan: Statin was restarted when LFTs improved (11) Airway obstruction Assessment/Plan: Resolved (12) Pancreatitis Assessment/Plan: Resolved (13) Tongue biting Assessment/Plan: Resolved (14) Alcohol withdrawal Qualifiers: Complication of substance-induced condition: with unspecified complication Qualified Code(s): F10.239 - Alcohol dependence with withdrawal, unspecified Assessment/Plan: Resolved (15) Hypokalemia Assessment/Plan: Resolved - Current Meds Current Meds: Current Medications Generic Name Dose Route Start Last Admin Trade Name Freq PRN Reason Stop Dose Admin Acetaminophen 650 mg 06/18/19 22:08 06/21/19 04:19 Tylenol PO 650 mg Q4HR PRN Administration Pain or Fever > 38C (100.4F) Amitriptyline HCl 50 mg 06/17/19 21:00 06/20/19 20:47 Elavil PO 50 mg QPM ALBINO Administration Atorvastatin Calcium 10 mg 06/17/19 21:00 06/20/19 20:47 Lipitor PO 10 mg QPM ALBINO Administration Chlorhexidine Gluconate 15 ml 06/14/19 21:00 06/20/19 20:47 Peridex PO 15 ml BID ALBINO Administration Potassium Chloride/Sodium Chloride 1,000 mls @ 60 mls/hr 06/18/19 20:00 06/21/19 03:29 Normal Saline 0.9% W/20 Meq Kcl IV 60 mls/hr .[id number] ALBINO Administration Cefepime HCl 2 gm/ Sodium 100 mls @ 200 mls/hr 06/20/19 14:00 06/21/19 06:43 Chloride IV Infused TID ALBINO Infusion Lisinopril 10 mg 06/17/19 11:00 06/20/19 08:53 Zestril PO 10 mg DAILY ALBINO Administration Nicotine 1 patch 06/15/19 09:00 06/20/19 08:53 Nicoderm TOP 1 patch DAILY ALBINO Administration Ondansetron HCl 4 mg 06/12/19 23:42 06/13/19 18:23 Zofran Inj IVP 4 mg Q6HR PRN Administration Nausea / Vomiting Pantoprazole Sodium 40 mg 06/13/19 09:00 06/20/19 20:47 Protonix IVP 40 mg BID ALBINO Administration Polyethylene Glycol 17 gm 06/16/19 09:00 06/20/19 08:53 Miralax PO 17 gm DAILY ALBINO Administration Multivit/Folic Acid/Iron 1 tab 06/16/19 12:00 06/20/19 08:53 Trinatal Rx 1 PO 1 tab DAILYWM ALBINO Administration Sodium Chloride 10 ml 06/12/19 23:42 06/20/19 20:47 Normal Saline Flush 0.9% IVP 10 ml PRN PRN Administration NEEDED PER PROVIDER ORDERS Sodium Chloride 10 ml 06/13/19 01:00 06/21/19 03:30 Normal Saline Flush 0.9% IVP Not Given 0100,0900,1700 ALBINO Thiamine HCl 100 mg 06/16/19 12:00 06/20/19 08:53 Vitamin B-1 PO 100 mg DAILY ALBINO Administration Zolpidem Tartrate 5 mg 06/18/19 22:00 06/20/19 21:55 Ambien PO 5 mg 2200 ALBINO Administration - Lab Result Fish Bone Diagrams: 06/21/19 04:42 06/21/19 04:42 - Additional Planning My Orders: My Active Orders 06/20/19 16:45 CULTURE, BLOOD #1 [RM] Urgent 06/20/19 16:48 CULTURE, BLOOD #2 [RM] Urgent 06/21/19 CULTURE, BLOOD #1 [RM] Urgent CULTURE, BLOOD #2 [RM] Urgent Subjective - Subjective Patient Reports: Feeling Better, Fever (Patient again spiked a fever around 0400 ) Objective Vital Signs: Vital Signs - 24 hr 06/20/19 06/20/19 06/20/19 09:00 11:50 15:15 Temperature 38 C H 36.9 C Heart Rate [ Brachial] Heart Rate [ 94 Monitoring electrodes] Heart Rate [ 96 Sitting (After 1 Minute)] Heart Rate [ 87 Standing (After 1 Minute)] Heart Rate [ 110 H Supine] Respiratory 14 Rate Blood Pressure 134/84 H [Right Brachial artery] Blood Pressure 120/89 H [Sitting (After 1 Minute)] Blood Pressure 130/67 [Standing ( After 1 Minute) ] Blood Pressure 113/68 [Supine] O2 Saturation 96 06/20/19 06/20/19 06/20/19 15:59 17:16 17:17 Temperature 37.2 C 37.0 C 36.8 C Heart Rate [ 71 Brachial] Heart Rate [ 79 Monitoring electrodes] Heart Rate [ Sitting (After 1 Minute)] Heart Rate [ Standing (After 1 Minute)] Heart Rate [ Supine] Respiratory 16 16 Rate Blood Pressure 154/75 H 121/76 [Right Brachial artery] Blood Pressure [Sitting (After 1 Minute)] Blood Pressure [Standing ( After 1 Minute) ] Blood Pressure [Supine] O2 Saturation 98 06/20/19 06/20/19 06/20/19 21:00 22:01 23:06 Temperature 37.0 C 37.8 C H 37.9 C H Heart Rate [ 71 71 Brachial] Heart Rate [ Monitoring electrodes] Heart Rate [ Sitting (After 1 Minute)] Heart Rate [ Standing (After 1 Minute)] Heart Rate [ Supine] Respiratory 14 16 Rate Blood Pressure 149/79 H 135/79 H [Right Brachial artery] Blood Pressure [Sitting (After 1 Minute)] Blood Pressure [Standing ( After 1 Minute) ] Blood Pressure [Supine] O2 Saturation 96 96 06/20/19 06/21/19 06/21/19 23:32 03:04 04:14 Temperature 36.8 C 37.2 C 38 C H Heart Rate [ Brachial] Heart Rate [ 65 65 85 Monitoring electrodes] Heart Rate [ Sitting (After 1 Minute)] Heart Rate [ Standing (After 1 Minute)] Heart Rate [ Supine] Respiratory 16 16 16 Rate Blood Pressure 141/82 H [Right Brachial artery] Blood Pressure [Sitting (After 1 Minute)] Blood Pressure [Standing ( After 1 Minute) ] Blood Pressure [Supine] O2 Saturation 96 06/21/19 06/21/19 06:13 07:50 Temperature 36.2 C L 36.4 C L Heart Rate [ Brachial] Heart Rate [ 86 Monitoring electrodes] Heart Rate [ Sitting (After 1 Minute)] Heart Rate [ Standing (After 1 Minute)] Heart Rate [ Supine] Respiratory 16 Rate Blood Pressure 136/85 H [Right Brachial artery] Blood Pressure [Sitting (After 1 Minute)] Blood Pressure [Standing ( After 1 Minute) ] Blood Pressure [Supine] O2 Saturation 92 Oxygen O2 Source Room air I&O (Last 24 Hrs): Intake and Output Totals x24h 06/19/19 06/20/19 06/21/19 23:59 23:59 23:59 Intake Total 2400 2758 1310 Output Total 2095 2550 1150 Balance 305 208 160 General: Alert, Oriented x3 HEENT: Mucous membr. moist/pink Neck: Supple Neuro: Alert, Non Focal Cardiovascular: Regular rate Respiratory: No respiratory distress Abdomen: Soft Extremities: No edema - Results Results: Laboratory Results WBC 9.8 x10^3/uL (4.8-10.8) 06/21/19 04:42 RBC 3.65 10^6/uL (4.70-6.10) L 06/21/19 04:42 Hgb 11.0 g/dL (14.0-18.0) L 06/21/19 04:42 Hct 35.3 % (42.0-52.0) L 06/21/19 04:42 MCV 96.7 fL (80.0-94.0) H 06/21/19 04:42 MCH 30.1 pg (27.0-31.0) 06/21/19 04:42 MCHC 31.2 g/dL (32.0-36.0) L 06/21/19 04:42 RDW 17.8 % (12.0-15.0) H 06/21/19 04:42 Plt Count 226 10^3/uL (130-450) 06/21/19 04:42 MPV 10.6 fL (7.4-11.4) 06/21/19 04:42 Neut # (Auto) Not Reportable 06/21/19 04:42 Lymph # (Auto) Not Reportable 06/21/19 04:42 [place] # (Auto) Not Reportable 06/21/19 04:42 Eos # (Auto) Not Reportable 06/21/19 04:42 Baso # (Auto) Not Reportable 06/21/19 04:42 Absolute Nucleated RBC Not Reportable 06/21/19 04:42 Total Counted 100 06/21/19 04:42 Band Neuts % (Manual) 0 % (0-10) 06/21/19 04:42 Abnorm Lymph % (Manual) 0 % 06/21/19 04:42 Nucleated RBC % Not Reportable 06/21/19 04:42 Neutrophils # (Manual) 6.9 10^3/uL (1.5-6.6) H 06/21/19 04:42 Lymphocytes # (Manual) 1.1 10^3/uL (1.5-3.5) L 06/21/19 04:42 Monocytes # (Manual) 1.6 10^3/uL (0.0-1.0) H 06/21/19 04:42 Eosinophils # (Manual) 0.1 10^3/uL (0-0.7) 06/21/19 04:42 Basophils # (Manual) 0.2 10^3/uL (0-0.1) H 06/21/19 04:42 Differential Comment MANUAL DIFFERENTIAL 06/21/19 04:42 Manual Slide Review Indicated 06/13/19 07:45 WBC Morphology NORMAL DENIA (NORMAL) 06/21/19 04:42 Platelet Estimate NORMAL (130-450,000) (NORMAL) 06/21/19 04:42 Platelet Morphology 1+ LARGE P (NORMAL) 06/21/19 04:42 RBC Morph Micro Appear 1+ ANISOCYTOSIS (NORMAL) 06/13/19 07:45 RBC Morph Micro Appear NORMAL APPEARANCE (NORMAL) 06/20/19 05:18 RBC Morph Micro Appear NORMAL APPEARANCE (NORMAL) 06/21/19 04:42 PT 12.7 secs (9.9-12.6) H 06/16/19 10:35 INR 1.1 (0.8-1.2) 06/16/19 10:35 Bld Gas Analysis Time 0540 06/15/19 05:23 Sample Site LEFT RADIAL 06/15/19 05:23 ABG pH 7.41 (7.35-7.45) 06/15/19 05:23 ABG pCO2 38 mmHg (34-45) 06/15/19 05:23 ABG pO2 95 mmHg (80-100) 06/15/19 05:23 ABG HCO3 23.6 mmol/L (22.0-26.0) 06/15/19 05:23 ABG Total CO2 24.8 MMOL/L (21.0-29.0) 06/15/19 05:23 ABG O2 Saturation 97 % (94-98) 06/15/19 05:23 ABG Base Excess -0.8 mmol/L (-2.0-3.0) 06/15/19 05:23 Brian Test POSITIVE 06/15/19 05:23 Respiration Rate 12 b/min 06/15/19 05:23 O2 Delivery Device VENTILATOR 06/15/19 05:23 Vent Mode SIMV 06/15/19 05:23 FiO2 28.00 06/15/19 05:23 Tidal Volume 600 mL 06/15/19 05:23 PEEP 5 cmH2O 06/15/19 05:23 Pressure Support Vent 10 cmH2O 06/15/19 05:23 Sodium 136 mmol/L (135-145) 06/21/19 04:42 Potassium 4.1 mmol/L (3.5-5.0) 06/21/19 04:42 Chloride 106 mmol/L (101-111) 06/21/19 04:42 Carbon Dioxide 21 mmol/L (21-32) 06/21/19 04:42 Anion Gap 9.0 (6-13) 06/21/19 04:42 BUN 9 mg/dL (6-20) 06/21/19 04:42 Creatinine 0.7 mg/dL (0.6-1.2) 06/21/19 04:42 Estimated GFR (MDRD) 117 (>89) 06/21/19 04:42 Glucose 156 mg/dL (70-100) H 06/21/19 04:42 Lactic Acid 1.2 mmol/L (0.5-2.2) 06/19/19 13:10 Calcium 8.9 mg/dL (8.5-10.3) 06/21/19 04:42 Phosphorus 2.1 mg/dL (2.5-4.6) L 06/16/19 10:35 Magnesium 1.8 mg/dL (1.7-2.8) 06/17/19 04:55 Total Bilirubin 1.0 mg/dL (0.2-1.0) 06/19/19 04:55 Direct Bilirubin 0.2 mg/dL (0.1-0.5) 06/19/19 04:55 AST 43 IU/L (10-42) H 06/19/19 04:55 ALT 50 IU/L (10-60) 06/19/19 04:55 Alkaline Phosphatase 92 IU/L (42-121) 06/19/19 04:55 Troponin I High Sens 252.7 pg/mL (2.3-19.7) H* 06/14/19 05:05 Total Protein 7.2 g/dL (6.7-8.2) 06/19/19 04:55 Albumin 3.2 g/dL (3.2-5.5) 06/19/19 04:55 Globulin 4.0 g/dL (2.1-4.2) 06/19/19 04:55 Albumin/Globulin Ratio 1.0 (1.0-2.2) 06/16/19 10:35 Triglycerides 95 mg/dL (-149) 06/13/19 00:15 Cholesterol 240 mg/dL (-199) H 06/13/19 00:15 LDL Cholesterol, Calc 129 mg/dL (-129) 06/13/19 00:15 VLDL Cholesterol 19 mg/dL 06/13/19 00:15 HDL Cholesterol 92 mg/dL (60-) 06/13/19 00:15 LDL/HDL Ratio 1.4 (<3.6) 06/13/19 00:15 Cholesterol/HDL Ratio 2.6 (<5.0) 06/13/19 00:15 Lipase 112 U/L (22-51) H 06/17/19 04:55 Urine Color YELLOW 06/19/19 08:30 Urine Clarity HAZY (CLEAR) 06/19/19 08:30 Urine pH 7.0 PH (5.0-7.5) 06/19/19 08:30 Ur Specific Rembrandt 1.010 (1.002-1.030) 06/19/19 08:30 Urine Protein NEGATIVE mg/dL (NEGATIVE) 06/19/19 08:30 Urine Glucose (UA) NEGATIVE mg/dL (NEGATIVE) 06/19/19 08:30 Urine Ketones NEGATIVE mg/dL (NEGATIVE) 06/19/19 08:30 Urine Occult Blood TRACE-LYSE (NEGATIVE) 06/19/19 08:30 Urine Nitrite NEGATIVE (NEGATIVE) 06/19/19 08:30 Urine Bilirubin NEGATIVE (NEGATIVE) 06/19/19 08:30 Urine Urobilinogen 1 (NORMAL) E.U./dL (NORMAL) 06/19/19 08:30 Ur Leukocyte Esterase SMALL (NEGATIVE) H 06/19/19 08:30 Urine RBC 0-5 /HPF (0-5) 06/19/19 08:30 Urine WBC 11-25 /HPF (0-3) H 06/19/19 08:30 Ur Squamous Epith Cells RARE Squamous (<= Few) 06/19/19 08:30 Urine Bacteria Few /HPF (None Seen) 06/19/19 08:30 Ur Microscopic Review INDICATED 06/19/19 08:30 Urine Culture Comments INDICATED 06/19/19 08:30 Nasal Screen MRSA (PCR) NEGATIVE (NEGATIVE) 06/15/19 08:40 Stl Occult Blood (IFOB) POSITIVE (NEGATIVE) A 06/13/19 01:59 Ethyl Alcohol 382.8 mg/dL 06/12/19 20:21 Blood Type O POSITIVE 06/13/19 07:45 Antibody Screen NEGATIVE 06/13/19 07:45 - Procedures Procedures: Procedures PARTIAL SHOULDER REPLACEMENT (04/28/13)
[2019-06-21] MEDS: THIAMINE 100 MG TABLET PO SCH (09:17)
[2019-06-21] MEDS: PANTOPRAZOLE 40 MG VIAL IVP SCH ×2 (09:17→21:55)
[2019-06-21] MEDS: NICOTINE 14 MG PATCH TOP SCH ×2 (09:17→09:21)
[2019-06-21] MEDS: CHLORHEXIDINE GLUCONATE 15 ML UDC PO SCH ×2 (09:17→21:55)
[2019-06-21] MEDS: LISINOPRIL 20 MG TABLET PO SCH (09:17)
[2019-06-21] MEDS: PRENATAL VITAMIN TABLET PO SCH (09:17)
[2019-06-21] MEDS: POLYETHYLENE GLYCOL 3350 17 GM PACKET PO SCH (09:17)
[2019-06-21] MEDS: ATORVASTATIN 10 MG TABLET PO SCH (21:53)
[2019-06-21] MEDS: SACCHAROMYCES BOULARDII 250 MG CAPSULE PO SCH (21:53)
[2019-06-21] MEDS: ZOLPIDEM 5 MG TABLET PO SCH (21:54)
[2019-06-21] MEDS: AMITRIPTYLINE 25 MG TABLET PO SCH (21:54)
[2019-06-22] MEDS: ACETAMINOPHEN 325 MG TABLET PO PRN (02:43)
[2019-06-22] MEDS: SODIUM CHLORIDE FLUSH 0.9% 10 ML SYRINGE IVP SCH ×2 (02:48→09:25)
[2019-06-22] MEDS: CEFEPIME 2 GM in SODIUM CHLORIDE 0.9% MINIBAG 100 ML IV SCH (06:27)
[2019-06-22] MEDS ORDERED: SODIUM CHLORIDE 0.9% 500 ML IV PRN (06:31)
[2019-06-22] MEDS ORDERED: SODIUM CHLORIDE 0.9% 500 ML ONE (06:40)
[2019-06-22 08:12] LABS: BASOPHILS # (AUTO) 0.1 10^3/uL (0.0-0.1); BASOPHILS % (AUTO) 1.4 %; EOSINOPHILS # (AUTO) 0.2 10^3/uL (0.0-0.7); EOSINOPHILS % (AUTO) 2.3 %; HGB - HEMOGLOBIN 11.5 g/dL (14.0-18.0); LYMPHOCYTES # (AUTO) 1.4 10^3/uL (1.5-3.5); LYMPHOCYTES % (AUTO) 18.4 %; MEAN CORPUSCULAR HEMOGLOBIN 31.2 pg (27.0-31.0); MEAN CORPUSCULAR HGB CONC 32.5 g/dL (32.0-36.0); MEAN CORPUSCULAR VOLUME 95.9 fL (80.0-94.0); MEAN PLATELET VOLUME 11.2 fL (7.4-11.4); MONOCYTES # (AUTO) 1.9 10^3/uL (0.0-1.0); MONOCYTES % (AUTO) 25.1 %; NEUTROPHILS % (AUTO) 51.5 %; PLT - PLATELET COUNT 230 10^3/uL (130-450); RED BLOOD COUNT 3.69 10^6/uL (4.70-6.10); RED CELL DISTRIBUTION WIDTH 17.8 % (12.0-15.0); WHITE BLOOD COUNT 7.7 x10^3/uL (4.8-10.8)
[2019-06-22 08:26] VITALS: BP 108/76
[2019-06-22 08:28] LABS: ALBUMIN/GLOBULIN RATIO 0.7 (1.0-2.2); BILIRUBIN,TOTAL 0.6 mg/dL (0.2-1.0); CALCIUM 9.2 mg/dL (8.5-10.3); CREATININE 0.7 mg/dL (0.6-1.2); TOTAL PROTEIN 7.6 g/dL (6.7-8.2)
[2019-06-22 08:42] LABS: DIFFERENTIAL COMMENT MANUAL=AUTO DIFF; PLATELET ESTIMATE, MANUAL NORMAL (130-450,000) (NORMAL); PLATELET MORPHOLOGY RARE GIANT PLATELETS (NORMAL); RBC MORPHOLOGY (MULTIPLE) 1+ HYPOCHROMASIA (NORMAL)
[2019-06-22] MEDS ORDERED: IOVERSOL 320 100 ML VIAL IVP ONE ×2 (08:52→10:18)
[2019-06-22] MEDS ORDERED: AMOX/CLAV 875 MG/125 MG TABLET PO SCH (09:00)
[2019-06-22] MEDS: PANTOPRAZOLE 40 MG VIAL IVP SCH (09:25)
[2019-06-22] MEDS: CHLORHEXIDINE GLUCONATE 15 ML UDC PO SCH (09:25)
[2019-06-22] MEDS: THIAMINE 100 MG TABLET PO SCH (09:25)
[2019-06-22] MEDS: LISINOPRIL 20 MG TABLET PO SCH (09:26)
[2019-06-22] MEDS: SACCHAROMYCES BOULARDII 250 MG CAPSULE PO SCH (09:26)
[2019-06-22] MEDS: PRENATAL VITAMIN TABLET PO SCH (09:26)
[2019-06-22] MEDS: POLYETHYLENE GLYCOL 3350 17 GM PACKET PO SCH (09:26)
--- NOTE | 2019-06-22 11:12 | CT Report ---
Reason: L upper molar loose FUO, ?abscess or osteo Procedure Date: 06/22/2019 Accession Number: [id number] / [id number] Procedure: CT - MAXILLOFACIAL W CPT Code: FULL RESULT: EXAM: CT MAXILLOFACIAL WITH CONTRAST EXAM DATE: 06/22/2019 10:45 AM. CLINICAL HISTORY: 53-year-old man with fever of unknown origin and loose left-sided upper molar. Concern for abscess or osteomyelitis. COMPARISONS: HEAD W/O 06/12/2019 8:53 PM. TECHNIQUE: Thin-section axial images were acquired of the face after administration of intravenous contrast. Post-processing: Coronal and sagittal reformats. Other: None. IV contrast: 80 cc Optiray 320. In accordance with CT protocol optimization, one or more of the following dose reduction techniques were utilized for this exam: automated exposure control, adjustment of mA and/or KV based on patient size, or use of iterative reconstructive technique. FINDINGS: Paranasal Sinuses: Moderate mucosal thickening is present along the floor of the left maxillary sinus. 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 No air-fluid levels. No fractures. Nasal Cavity and Bones: Clear. No fractures. The septum is deviated to the left. Mandible: No fracture. Temporomandibular joints are in normal alignment. Skull Base and Mastoid Air Cells: No fractures. Mastoid air cells are clear. Teeth: Large periapical lucency surrounds the left maxillary second molar. (The left maxillary first molar is absent. Closed emesis there is cortical breakthrough medially, laterally, and superiorly into the sinus. No additional periapical lucencies are identified, but several additional teeth are missing. Orbits: Globes are intact. Optic nerves are symmetric and normal in caliber bilaterally. Intraconal and extraconal spaces are normal without mass lesion or fat stranding. Soft Tissues: Unremarkable. In particular, no fat stranding, fluid collection, or swelling adjacent to the left maxillary periapical lucency to suggest soft tissue spread of odontogenic disease. Visualized Intracranial Contents: Unremarkable. IMPRESSION: 1. Large periapical lucency surrounds the left maxillary second molar with cortical breakthrough medially and laterally through the alveolar ridge as well as superiorly into the maxillary sinus. 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 RADIA
--- NOTE | 2019-06-22 13:59 | CONSULTATION NOTE ---
Referring Provider Name of Referring Provider:: Debbie Titus Consult Date: 06/22/19 Chief Complaint - Chief Complaint Chief Complaint: loose tooth History of Present Illness - History of Present Illness HPI Comment/Other: Has been inpatient for about ten days for etoh w/drawal, hemoptysis, and cystitis after ICU stay. Currently having fevers around 39 C multiple times per day. He also has a loose tooth, and OMFS was consulted to evaluate the dentition as a possible source of the fever. The patient denies any facial pain, sinus drainage, or dental pain, except when chewing on the left side of his mouth. Prior to being admitted he was scheduled with his dentist to have a tooth removed, #15 History - Past Medical History Cardiovascular: reports: Hypertension, High cholesterol Respiratory: reports: None Neuro: reports: None Endocrine/Autoimmune: reports: None GI: reports: GERD : reports: Retention HEENT: reports: Chronic vision loss Psych: reports: Other Musculoskeletal: reports: None Derm: reports: None MRSA Hx?: No Other Past Medical History: Alcoholism - Past Surgical History Ortho: reports: Knee replacement, Shoulder arthroplasty - Family & Social History Family History Comment/Other: He reports no known family history. Living arrangement: At home Living Situation: With spouse/s.o. Social History Notes: He lives with his in [place]. 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 He drinks alcohol on a daily basis but only for the past month. States he has been drinking since the age of 16. He does smoke a few cigarettes day. Denies illicit drug use. - Substance History Use: Uses substance without health or social issues: Tobacco Abuse: Recurrent use of substance despite neg consequences: Alcohol - POLST Patient has POLST: No Meds/Allgy - Home Medications Home Medications: Ambulatory Orders Medication Instructions Recorded Confirmed Amitriptyline [Elavil] 50 mg PO QPM 01/21/17 06/12/19 Lisinopril [Zestril] 20 mg PO DAILY 01/21/17 06/17/19 Simvastatin [Zocor] 20 mg PO DAILY 01/21/17 06/12/19 Aspirin Chewable [[place] 1 tab PO DAILY 06/12/19 06/12/19 Aspirin] - Allergies Allergies/Adverse Reactions: Allergies Allergy/AdvReac Type Severity Reaction Status Date / Time No Known Drug Allergies Allergy Verified 06/12/19 19:35 Review of Systems - Constitutional Constitutional: reports: Other (A 14 point ROS was completed and found to be negative except as noted above in HPI) Exam - Vital Signs Reviewed Vital Signs: Yes Vital Signs: Vital Signs x48h Temp Pulse Resp BP Pulse Ox 06/22/19 08:23 36.6 C 71 19 108/76 97 - Physical Exam General Appearance: positive: No acute distress, Alert Eyes Bilateral: positive: Normal inspection, PERRL, EOMI ENT: positive: Other (Gross mobility tooth #15. Painful when manipulated. No bleeding, swelling, ttp of the surrounding soft tissues. Bilateral nares patent.) Neck: positive: Nml inspection Respiratory: positive: No respiratory distress Cardiovascular: positive: Regular rate & rhythm, No murmur Abdomen: positive: Non-tender, No distention Skin: positive: Color nml, Warm Extremities: positive: Full ROM Neurologic/Psychiatric: positive: CN's nml (2-12) Conclusion/Plan - Diagnosis Diagnosis: Mobile tooth #5 2/2 chronic periodontitis. - Plan Plan: We anticipate nonoperative management of this tooth. The patient has plans to follow up with his dentist for removal of the tooth after discharge. There is no evidence of acute soft tissue infection associated with tooth #15 or any other teeth. His fever is of a non-odontogenic origin. - Lab Results Lab results reviewed: Yes Fish Bones: 06/22/19 08:05 06/22/19 08:05
--- NOTE | 2019-06-22 14:31 | Discharge Plan ---
Discharge Plan Problem Reviewed?: Yes Disposition: Home, Self Care Condition: Stable Prescriptions: Amitriptyline [Elavil] 50 mg PO QPM #30 tablet Amox/Clav 875/125 [Augmentin 875/125] 1 tab PO BID #28 tablet Lisinopril [Zestril] 20 mg PO DAILY #30 tablet Simvastatin [Zocor] 20 mg PO DAILY #30 tablet Thiamine [Vitamin B-1] 100 mg PO DAILY #30 tablet Diet: Regular Activity Restrictions: Activity as Tolerated Shower Restrictions: No Driving Restrictions: No Instruction Topics: Urinary Tract Infecs Men, Alcoholism Get Help, Addiction Alcohol, ED Sinusitis Abx Tx Health Concerns: You were admitted with alcohol withdrawal, pancreatitis, and had bleeding from tongue biting, then developed a fever which has been found to be from urinary tract infection and also the loose tooth causing sinusitis. Plan of Treatment: Resume all your pre-hospital medications. Take the Thiamine supplement daily for a month. Finish taking the antibiotic Augmentin. Your old and your new prescriptions were electronically sent to [facility] in [place]. Use Tylenol to treat any more fevers. See your Primary Care Provider, Dr Vanegas, in 5-10 days for hospital follow-up. See your dentist soon, for removing the loose tooth. Care Goals: Stop alcohol abuse and treat the infections. Assessment: The patient is agreeable with the plan. Additional Instructions or Follow Up instructions: Keep the new appointment this Wed with the Alcohol Counselor. No Smoking: If you smoke, Please STOP! Call for help.
[2019-06-23] MEDS ORDERED: ASPIRIN CHEW 81 MG TABLET PO SCH (09:00)
--- NOTE | 2019-06-24 18:38 | DISCHARGE SUMMARY ---
Physician: Debbie Titus MD DATE OF ADMISSION: 06/12/2019 DATE OF DISCHARGE: 06/22/2019 HISTORY OF PRESENT ILLNESS: This is a 53-year-old male of [place] descent with a history of hypertension, smoking, hyperlipidemia and intermittent alcohol abuse. He presented from home complaining of weakness, falls at home, heavy alcohol use over the past 6 months, nausea and vomiting for 2 days and decreased p.o. intake. He was found to be afebrile, normotensive, heart rate in the 80s. Lipase was 336, alcohol level of 382. He underwent a head CT that was concerning for possible hemorrhage, and the ER spoke to Neurosurgery at [facility], who recommended obtaining an MRI. He was admitted for management of pancreatitis, the abnormal brain CT scan and alcohol abuse. HOSPITAL COURSE AND DISCHARGE DIAGNOSES 1. Alcoholic pancreatitis. The serum lipase level of 336, improved daily into the 120s, then 110s, after n.p.o. status for bowel rest, antiemetics, pain medications and IV fluids. Before his diet could be advanced, he had other complications and required ICU stay (see below). 2. Atrial fibrillation with rapid ventricular response. On his second day, he was found to be in atrial fibrillation with heart rate of 180, received IV diltiazem and IV Procan and converted to sinus rhythm. There were no more recurrences of his atrial fibrillation. An Echo was done that showed normal LV size and systolic function with EF of 65-70%, mild mitral regurgitation and tricuspid regurgitation. High sensitivity-troponin values were 16, then 56, 190, 269, and 252, and were felt to become abnormal due to demand ischemia from the extreme tachycardia. Later during hospitalization, his aspirin and Lipitor were restarted. 3. Alcohol withdrawal. The patient required ICU stay due to the extreme tachycardia, abnormal mentation and a possible alcohol-withdrawal seizure causing hemorrhage from a tongue laceration. He was put on a CIWA protocol, required Ativan and then an Ativan drip, which was eventually tapered down and off. He was lethargic for several days and eventually had normal mentation, and no sequelae of hepatic insufficiency. 4. Tongue biting (hematemesis). A rapid response was called when the patient was found in the rapid atrial fibrillation and also had bright red blood in his mouth and presumed bloody emesis. He required intubation for airway protection and the Ativan drip was used then. He underwent an EGD, after consultation by general surgeon, Dr. Rashid Sadler. No esophageal or gastric source of bleeding was found. He had a very thick and lacerated tongue, where his bleeding was coming from. There was a white plaque noted on the tongue, which was biopsied. The pathology report was still pending at the time of discharge. He received one dose of IV steroids, was on Peridex, and after extubation was on a soft diet to promote healing. 5. Alcohol abuse. The patient was seen by Social Work, and I discussed his habit with the and children who were very concerned. SW arranged for him to see outpatient alcohol counselor to begin rehabilitation as an outpatient, and he was agreeable with the plan. 6. Malnutrition, moderate. The patient had significant decreased nutrition over the 6 months of his heavy alcohol use. After his recovery from the alcohol withdrawal, tongue biting and hematemesis, he developed a good appetite and was also put on vitamin supplements. 7. Transaminitis. His liver tests were abnormal at presentation; AST 71, with ALT 35, which improved during hospitalization. Bilirubin was normal throughout the hospital stay. 8. Hypokalemia. The patient had serum potassium level of 3.3 at mid hospitalization, which required replacement. 9. Falls at home. The patient had reported falling at home. The and daughter confirmed that this occurred when he had been drunk. Imaging done in the ER showed no fractures. There was possibly head trauma with these, which he had never sought medical attention for. After his alcohol withdrawal resolved, he was seen by Physical Therapy. He was very weak and required a walker in his room for several days and then eventually improved to the point of independent walking in the hallway at the time of discharge. 10. Subarachnoid hemorrhage. The brain MRI that had been recommended was done and showed residual small volume multifocal subarachnoid hemorrhage, most evident in the region of the right cingulate sulcus and left sylvian fissure. The patient had no gross neurologic abnormalities in the later days of his hospital stay when he was awake, alert and able to ambulate. 11. Subdural hemorrhage. The MRI of the brain also showed a probable very small volume of subacute subdural hemorrhage along the medial margin of the right occipital lobe and along the right middle fossa floor. The patient was not on his home aspirin dose for most of this hospital stay because of the subdural and subarachnoid hemorrhages. 12. Macrocytic anemia. His hemoglobin was 11.2 at admission and ranged between 10.1 and 11.8. The MCV was elevated at 95-98, likely from his alcohol abuse. He was on IV banana bag fluids while in the ICU and then started on vitamins and Thiamine 100 mg daily supplements and discharged with this. 13. Tobacco dependence. The patient was on a Nicotine Patch throughout his hospital stay here. 14. Klebsiella cystitis. The patient's hospital stay was prolonged because of a new febrile illness that developed just as his alcohol withdrawal had resolved and he was about to be discharged. The discharge was canceled because of fever of 39.4C, new elevation of white blood count to 11.1, then 12.8, and complaints of urinary frequency. Blood cultures were done that remained negative. Urine cultures were positive for bacteriuria and eventually grew Klebsiella pneumoniae. He was put on empiric Rocephin when he had the initial fever spike. This was broadened to IV cefepime when he had continued daily fevers, up to 3 times a day, during the rest of his hospital course. He was eventually transitioned to oral Augmentin and advised to take this for 14 more days to complete a course of treatment for cystitis in a male. Abdominal imaging with CT was done that showed no evidence of hydronephrosis, stones or obstruction. There was mild bladder wall thickening noted on that CT scan. The WBC did improve with this management. 15. Maxillary sinusitis. Despite IV antibiotics for the above cystitis, he continued to have fever spikes up to 3 times a day. Blood cultures were done daily with these fever spikes and have remained negative. An alternate source of infection was suspected, and he complained of a very loose tooth. A maxillofacial CT was done that showed apical destruction of a molar and erosion of the bone into the maxillary sinus causing sinusitis. He had consultation by Dr. Boone of maxillofacial surgery, who did not feel that the loose molar and sinusitis (found on maxillofacial CT) was the source. The Augmentin was picked for treating both the sinusitis, and the Klebsiella UTI since it was sensitive to this. (I reviewed the entire case with ID Fellow at , on the [employer] line, who felt that he was spiking temperatures from the Klebsiella cystitis). 16. Loose tooth #15. As discussed in #15. The patient had been scheduled to have this removed by his dentist, but he was an inpatient. He was advised to have follow up with his own dentist after discharge. 17. Hypertension. The patient's oral home medications were restarted after he was extubated and could take oral diet. 18. Hyperlipidemia. The patient's home statin medication was resumed after extubation and he could take oral diet. CONDITION AT DISCHARGE: Stable. PHYSICAL EXAMINATION VITAL SIGNS: Blood pressure 108-140/70-90, heart rate 70, sinus rhythm, afebrile, but had a fever earlier that day of 39 degrees centigrade, room air saturation 97%. HEENT: Unremarkable except for left upper last molar that was very loose. NECK: Without JVD or carotid bruits. CHEST: Clear. HEART: Normal heart sounds. ABDOMEN: Soft, nontender. Normal bowel sounds. No organomegaly. EXTREMITIES: No clubbing, cyanosis or edema. No skin rash. NEUROLOGIC: Grossly intact. LABORATORY AND IMAGING: Reviewed and summarized above. CODE STATUS: FULL CODE. MEDICATIONS AT THE TIME OF DISCHARGE 1. Baby aspirin daily. 2. Amitriptyline 50 mg q.p.m. 3. Lisinopril 20 mg daily. 4. Zocor 20 mg daily. 5. Thiamine 100 mg daily. 6. Augmentin 875/125 mg b.i.d. x2 more weeks. FOLLOWUP: The patient is advised to see his PCP in the next 1 week in followup, and dentist in follow-up. TIME required to complete entire discharge, chart review, discussion with patient, and daughter, dictation, prescriptions: 90 minutes. cc: Dr Vanegas, PCP, TD: 06/24/2019 17:54 MTDD
== END 2019-06-22 15:27 | disposition home or self-care (01) | DRG 896 ==
LOC: ED 19:29 → EEVIPCON 23:08 → MS2 23:08 → ED 23:36 → ICU 06-13 07:21 → MS3 06-17 14:32
PROVIDERS: ADMIT Internal Medicine; ATTEND Internal Medicine
PROC: 0CB7XZX Excision of Tongue, External Approach, Diagnostic (ICD-10-PCS; 2019-06-13)
PROC: 5A1945Z Respiratory Ventilation, 24-96 Consecutive Hours (ICD-10-PCS; 2019-06-13)
PROC: 0DJ08ZZ Inspection of Upper Intestinal Tract, Via Natural or Artificial Opening Endoscopic (ICD-10-PCS; principal; 2019-06-13 15:30)
DX: F10.239 Alcohol dependence with withdrawal, unspecified (principal); S06.6X9A Traumatic subarachnoid hemorrhage with loss of consciousness of unspecified duration, initial encounter; S06.5X9A Traumatic subdural hemorrhage with loss of consciousness of unspecified duration, initial encounter; K85.20 Alcohol induced acute pancreatitis without necrosis or infection; E44.0 Moderate protein-calorie malnutrition; K29.20 Alcoholic gastritis without bleeding; R56.9 Unspecified convulsions; Z68.26 Body mass index [BMI] 26.0-26.9, adult; J98.8 Other specified respiratory disorders; E78.5 Hyperlipidemia, unspecified; Y90.8 Blood alcohol level of 240 mg/100 ml or more; K14.0 Glossitis; I48.91 Unspecified atrial fibrillation; F17.210 Nicotine dependence, cigarettes, uncomplicated; N30.90 Cystitis, unspecified without hematuria; B96.1 Klebsiella pneumoniae [K. pneumoniae] as the cause of diseases classified elsewhere; J32.0 Chronic maxillary sinusitis; K08.89 Other specified disorders of teeth and supporting structures; S01.512A Laceration without foreign body of oral cavity, initial encounter; W45.8XXA Other foreign body or object entering through skin, initial encounter; W19.XXXA Unspecified fall, initial encounter; I10 Essential (primary) hypertension; E87.6 Hypokalemia; R74.0 Nonspecific elevation of levels of transaminase and lactic acid dehydrogenase [LDH]; R94.8 Abnormal results of function studies of other organs and systems; R51 Headache; M47.892 Other spondylosis, cervical region; M48.02 Spinal stenosis, cervical region; K21.9 Gastro-esophageal reflux disease without esophagitis; R33.9 Retention of urine, unspecified; H54.7 Unspecified visual loss; Z96.659 Presence of unspecified artificial knee joint; Z78.1 Physical restraint status; Z79.82 Long term (current) use of aspirin; Z91.81 History of falling
CPT/HCPCS: 36415; 36600; 70450; 70487; 70551; 71045; 71101; 72125; 74177; 80048; 80053; 80061; 80076; 80320; 81001; 81003; 82274; 82803; 83605; 83690; 83735; 84100; 84484; 85014; 85018; 85025; 85610; 86850; 86900; 86901; 87040; 87077; 87086; 87150; 87181; 93005; 93306; 94002; 94003; 94770; 96365; 96375; 97161; 97530; 99283; 99285; A9270; J0330; J1170; J2060; J3411; J7120; Q9967; 83721

== ENCOUNTER 2019-09-22 20:47 | Outpatient (CLI) | payer OTHER | END 2019-09-22 20:48 | disposition EMS.NT | LOC: EMS 20:47 | PROVIDERS: ATTEND Surgery | DX: Z03.89 Encounter for observation for other suspected diseases and conditions ruled out (principal) ==

== ENCOUNTER 2021-02-20 15:17 | Emergency (ER) | payer OTHER ==
[2021-02-20] MEDS ORDERED: MAGNESIUM SULFATE 2 GRAM 2 GM/50 ML BAG IV ONE (15:42)
[2021-02-20] MEDS ORDERED: FOLIC ACID INJ 1 MG, THIAMINE INJ 100 MG, MAGNESIUM SULFATE 2 GM, MULTIVITAMIN 10 ML in... IV STA ×5 (15:42)
[2021-02-20 15:46] LABS: BASOPHILS # (AUTO) 0.1 10^3/uL (0.0-0.1); BASOPHILS % (AUTO) 1.3 %; EOSINOPHILS # (AUTO) 0.1 10^3/uL (0.0-0.7); HCT - HEMATOCRIT 47.7 % (42.0-52.0); HGB - HEMOGLOBIN 16.7 g/dL (14.0-18.0); LYMPHOCYTES # (AUTO) 1.4 10^3/uL (1.5-3.5); LYMPHOCYTES % (AUTO) 27.5 %; MEAN CORPUSCULAR HEMOGLOBIN 31.8 pg (27.0-31.0); MEAN CORPUSCULAR VOLUME 90.9 fL (80.0-94.0); MEAN PLATELET VOLUME 9.3 fL (7.4-11.4); MONOCYTES # (AUTO) 0.5 10^3/uL (0.0-1.0); MONOCYTES % (AUTO) 9.2 %; NEUTROPHILS # (AUTO) 3.2 10^3/uL (1.5-6.6); NEUTROPHILS % (AUTO) 60.8 %; PLT - PLATELET COUNT 150 10^3/uL (130-450); RED BLOOD COUNT 5.25 10^6/uL (4.70-6.10); RED CELL DISTRIBUTION WIDTH 15.2 % (12.0-15.0); WHITE BLOOD COUNT 5.2 x10^3/uL (4.8-10.8)
[2021-02-20 15:54] LABS: MUDS CUTOFF CONCENTRATIONS CUTOFF CONC BELOW:
[2021-02-20 15:57] LABS: BILIRUBIN,URINE NEGATIVE (NEGATIVE); GLUCOSE, URINE (UA) NEGATIVE (NEGATIVE); KETONES,URINE (UA) NEGATIVE (NEGATIVE); LEUKOCYTE ESTERASE, URINE NEGATIVE (NEGATIVE); NITRITE,URINE NEGATIVE (NEGATIVE); OCCULT BLOOD,URINE MODERATE (NEGATIVE); PROTEIN,URINE 30 mg/dL (NEGATIVE); UROBILINOGEN,URINE 0.2 (NORMAL) E.U./dL (NORMAL)
[2021-02-20 16:05] LABS: ACETAMINOPHEN < 10 ug/mL (10-30); ALBUMIN 4.3 g/dL (3.2-5.5); ALKALINE PHOSPHATASE 77 IU/L (42-121); ALT ALANINE AMINOTRANSFERASE 56 IU/L (10-60); AST ASPARTATE AMINOTRANSFERASE 94 IU/L (10-42); BUN - BLOOD UREA NITROGEN 11 mg/dL (6-20); CALCIUM 8.8 mg/dL (8.5-10.3); CARBON DIOXIDE - CO2 22 mmol/L (21-32); CHLORIDE 101 mmol/L (101-111); CREATININE 0.7 mg/dL (0.6-1.2); ETOH - ETHANOL 338.3 mg/dL; GFR - MDRD 116 (>89); GLUCOSE 124 mg/dL (70-100); LIPASE 77 U/L (22-51); MAGNESIUM 1.9 mg/dL (1.7-2.8); PHOSPHORUS 3.2 mg/dL (2.5-4.6); POTASSIUM 3.7 mmol/L (3.5-5.0); SALICYLATE < 6.0 mg/dL; SODIUM 137 mmol/L (135-145); TOTAL PROTEIN 8.4 g/dL (6.7-8.2)
[2021-02-20 16:15] LABS: CLARITY,URINE CLEAR (CLEAR)
[2021-02-20 16:16] LABS: BACTERIA,URINE None Seen /HPF (None Seen); RBC,URINE 0-5 /HPF (0-5); SQUAMOUS EPITHELIAL CELL,UR RARE Squamous (<= Few); WBC,URINE 0-3 /HPF (0-3)
--- NOTE | 2021-02-20 16:40 | ED Physician Documentation ---
History of Present Illness - Stated complaint Stated Complaint: WEAKNESS/BODY ACHES - Chief complaint Chief Complaint: General - History obtained from History obtained from: Patient, Family - History of Present Illness Timing: Other (1 month) Pain level max: 5 Pain level now: 5 - Additonal information Additional information: 55 year old alcoholic male with heavy alcohol use for the past month. Family brought him in today stating that he has "not been feeling well for the past few days". He does not want to go to rehab or detox and family does not want him to be inpatient for rehab or detox. Review of Systems Constitutional: denies: Fever, Chills Nose: denies: Rhinorrhea / runny nose, Congestion Respiratory: denies: Cough GI: reports: Abdominal Pain (epigastric). denies: Vomiting, Diarrhea Skin: denies: Rash Musculoskeletal: denies: Neck pain, Back pain Neurologic: denies: Headache PD PAST MEDICAL HISTORY - Past Medical History Cardiovascular: Hypertension, High cholesterol Respiratory: None Neuro: None Endocrine/Autoimmune: None GI: GERD : Retention HEENT: Chronic vision loss Psych: Other Musculoskeletal: None Derm: None - Past Surgical History Past Surgical History: Yes Ortho: Knee replacement, Shoulder arthroplasty - Present Medications Home Medications: Ambulatory Orders Medication Instructions Recorded Confirmed Aspirin Chewable [[place] 1 tab PO DAILY 06/12/19 06/12/19 Aspirin] Amitriptyline [Elavil] 50 mg PO QPM #30 tablet 06/22/19 Amox/Clav 875/125 [Augmentin 1 tab PO BID #28 tablet 06/22/19 875/125 Tab] Lisinopril [Zestril] 20 mg PO DAILY #30 tablet 06/22/19 Simvastatin [Zocor] 20 mg PO DAILY #30 tablet 06/22/19 Thiamine [Vitamin B-1] 100 mg PO DAILY #30 tablet 06/22/19 Esomeprazole Magnesium [Nexium] 40 mg PO DAILY #30 cap 02/20/21 - Allergies Allergies/Adverse Reactions: Allergies Allergy/AdvReac Type Severity Reaction Status Date / Time No Known Drug Allergies Allergy Verified 02/20/21 15:22 - Social History Does the pt smoke?: Yes Smoking Status: Current every day smoker Does the pt drink ETOH?: Yes Does the pt have substance abuse?: No - Immunizations Immunizations are current?: Yes - POLST Patient has POLST: No PD ED PE NORMAL - Vitals Vital signs reviewed: Yes - General General: Alert and oriented X 3, No acute distress, Well developed/nourished - HEENT HEENT: PERRL, Moist mucous membranes - Neck Neck: Supple, no meningeal sign - Cardiac Cardiac: RRR, Strong equal pulses - Respiratory Respiratory: No respiratory distress, Clear bilaterally - Abdomen Abdomen: Normal bowel sounds, Soft, Non distended, Other (Mild tenderness to palpation epigastric without peritoneal signs) - Derm Derm: Warm and dry - Extremities Extremities: No edema, No calf tenderness / cord - Neuro Neuro: Alert and oriented X 3 - Psych Psych: Normal mood, Normal affect Results - Vitals Vitals: Vital Signs - 24 hr 02/20/21 02/20/21 15:22 18:09 Temperature 36.5 C 37.0 C Heart Rate 109 H 103 H Respiratory 16 18 Rate Blood Pressure 136/93 H 149/88 H O2 Saturation 95 94 Oxygen O2 Source Room air - Labs Labs: Laboratory Tests 02/20/21 02/20/21 02/20/21 15:40 15:40 15:40 WBC 5.2 RBC 5.25 Hgb 16.7 Hct 47.7 MCV 90.9 MCH 31.8 H MCHC 35.0 RDW 15.2 H Plt Count 150 MPV 9.3 Neut # (Auto) 3.2 Lymph # (Auto) 1.4 L [place] # (Auto) 0.5 Eos # (Auto) 0.1 Baso # (Auto) 0.1 Absolute Nucleated RBC 0.00 Nucleated RBC % 0.0 Sodium 137 Potassium 3.7 Chloride 101 Carbon Dioxide 22 Anion Gap 14.0 H BUN 11 Creatinine 0.7 Estimated GFR (MDRD) 116 Glucose 124 H Calcium 8.8 Phosphorus 3.2 Magnesium 1.9 Total Bilirubin 1.0 AST 94 H ALT 56 Alkaline Phosphatase 77 Total Protein 8.4 H Albumin 4.3 Globulin 4.1 Albumin/Globulin Ratio 1.0 Lipase 77 H TSH 1.08 Urine Color Urine Clarity Urine pH Ur Specific [place] Urine Protein Urine Glucose (UA) Urine Ketones Urine Occult Blood Urine Nitrite Urine Bilirubin Urine Urobilinogen Ur Leukocyte Esterase Urine RBC Urine WBC Ur Squamous Epith Cells Urine Bacteria Ur Microscopic Review Urine Culture Comments Salicylates < 6.0 Urine Opiates Screen Ur Oxycodone Screen Urine Methadone Screen Ur Propoxyphene Screen Acetaminophen < 10 L Ur Barbiturates Screen Ur Tricyclics Screen Ur Phencyclidine Scrn Ur Amphetamine Screen U Methamphetamines Scrn U Benzodiazepines Scrn Urine Cocaine Screen U Cannabinoids Screen Ethyl Alcohol 338.3 02/20/21 15:45 WBC RBC Hgb Hct MCV MCH MCHC RDW Plt Count MPV Neut # (Auto) Lymph # (Auto) [place] # (Auto) Eos # (Auto) Baso # (Auto) Absolute Nucleated RBC Nucleated RBC % Sodium Potassium Chloride Carbon Dioxide Anion Gap BUN Creatinine Estimated GFR (MDRD) Glucose Calcium Phosphorus Magnesium Total Bilirubin AST ALT Alkaline Phosphatase Total Protein Albumin Globulin Albumin/Globulin Ratio Lipase TSH Urine Color YELLOW Urine Clarity CLEAR Urine pH 6.0 Ur Specific [place] 1.015 Urine Protein 30 H Urine Glucose (UA) NEGATIVE Urine Ketones NEGATIVE Urine Occult Blood MODERATE H Urine Nitrite NEGATIVE Urine Bilirubin NEGATIVE Urine Urobilinogen 0.2 (NORMAL) Ur Leukocyte Esterase NEGATIVE Urine RBC 0-5 Urine WBC 0-3 Ur Squamous Epith Cells RARE Squamous Urine Bacteria None Seen Ur Microscopic Review INDICATED Urine Culture Comments NOT INDICATED Salicylates Urine Opiates Screen NEGATIVE Ur Oxycodone Screen NEGATIVE Urine Methadone Screen NEGATIVE Ur Propoxyphene Screen NEGATIVE Acetaminophen Ur Barbiturates Screen NEGATIVE Ur Tricyclics Screen NEGATIVE Ur Phencyclidine Scrn NEGATIVE Ur Amphetamine Screen NEGATIVE U Methamphetamines Scrn NEGATIVE U Benzodiazepines Scrn POSITIVE H Urine Cocaine Screen NEGATIVE U Cannabinoids Screen NEGATIVE Ethyl Alcohol PD MEDICAL DECISION MAKING - ED course Complexity details: reviewed results, re-evaluated patient, considered differential, d/w patient, d/w family ED course: No significant lab abnormalities. Patient is intoxicated. Received a banana bag, Protonix and Maalox. Abdominal pain resolved. Will place on a PPI for gastritis. Social work was consulted and the patient and family were given resources. They continue to decline inpatient detox or rehab. Family is comfortable taking him home at this time. Patient is tolerating p.o. without difficulty. Patient and family counseled regarding signs and symptoms for which I believe and urgent re-evaluation would be necessary. Patient with good understanding of and agreement to plan and is comfortable going home at this time This document was made in part using voice recognition software. While efforts are made to proofread this document, sound alike and grammatical errors may occur. Departure - Departure Disposition: 01 Home, Self Care Clinical Impression: Alcohol intoxication Qualifiers: Complication of substance-induced condition: uncomplicated Qualified Code(s): F10.920 - Alcohol use, unspecified with intoxication, uncomplicated Alcoholic gastritis Qualifiers: Chronicity: acute Gastritis bleeding: without bleeding Qualified Code(s): K29.20 - Alcoholic gastritis without bleeding Condition: Good Instructions: ED Alcohol Intoxication, ED Gastritis Follow-Up: your,doctor in 3 days [Other] Prescriptions: Esomeprazole Magnesium [Nexium] 40 mg PO DAILY #30 cap Comments: Follow-up with the resources given to you by social work today. It is recommended that you consider going to detox to help you quit drinking. Return if you worsen. Discharge Date/Time: 02/20/21 18:11
[2021-02-20] MEDS ORDERED: PANTOPRAZOLE 40 MG VIAL IVP STA (16:42)
[2021-02-20] MEDS ORDERED: MAG HYDROX/AL HYDROX/SIMETH 30 ML UDC PO STA (16:47)
[2021-02-20 16:52] LABS: BARBITURATE SCREEN,UR NEGATIVE (NEGATIVE); OXYCODONE SCREEN, URINE NEGATIVE (NEGATIVE); PROPOXYPHENE SCREEN, URINE NEGATIVE (NEGATIVE)
[2021-02-20 16:53] LABS: AMPHETAMINE SCREEN,URINE NEGATIVE (NEGATIVE); BENZODIAZEPINES SCREEN, URINE POSITIVE (NEGATIVE); COCAINE SCREEN URINE NEGATIVE (NEGATIVE); METHADONE SCREEN, URINE NEGATIVE (NEGATIVE); METHAMPHETAMINES SCREEN, URINE NEGATIVE (NEGATIVE); OPIATE SCREEN, URINE NEGATIVE (NEGATIVE); THC CANNABINOID SCREEN, URINE NEGATIVE (NEGATIVE); TRICYCLIC ANTIDEPRESSANT,URINE NEGATIVE (NEGATIVE)
[2021-02-20 18:10] VITALS: BP 149/88
== END 2021-02-20 18:11 | disposition home or self-care (01) ==
LOC: ED 15:17
DX: K29.20 Alcoholic gastritis without bleeding (principal); F10.920 Alcohol use, unspecified with intoxication, uncomplicated; I10 Essential (primary) hypertension; F17.200 Nicotine dependence, unspecified, uncomplicated; Z79.82 Long term (current) use of aspirin
CPT/HCPCS: 36415; 80053; 80306; 80307; 80320; 80329; 81001; 83690; 83735; 84100; 84443; 85025; 96365; 96375; 99283; 99284; A9270; J3411; 81003; 87086

== ENCOUNTER 2021-03-01 01:50 | Outpatient (CLI) | payer OTHER | END 2021-03-01 01:51 | disposition EMS.NT | LOC: EMS 01:50 | DX: F10.129 Alcohol abuse with intoxication, unspecified (principal) ==

== ENCOUNTER 2022-08-08 21:40 | Outpatient (CLI) | payer OTHER | END 2022-08-08 23:59 | disposition E | LOC: EMS 21:40 | DX: I46.9 Cardiac arrest, cause unspecified (principal) | CPT/HCPCS: A0425; A0428 ==